=== PATIENT | male | born 1950 | race Caucasian/White ===

== ENCOUNTER 2019-03-25 10:21 | Inpatient (IN) | payer MEDICARE, SELFPAY ==
[2016-12-27 14:29] VITALS: BMI 39.8
[2019-03-25] VITALS (29 sets, daily range): BP systolic 137–168; BP diastolic 66–109; PULSE 60–78; RESP 16–31; TEMP 36.3–36.8; O2SAT 93–98; BMI 40.8; BMI 40.6; BMI 39.5
--- NOTE | 2019-03-25 10:25 | CM.ED ---
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 MET WITH PATIENT'S . ESCORTED ALONG WITH NURSE QUILT STUFFER TO SOFTWARE INTEGRATION DEVELOPER WAITING ROOM. EMOTIONAL SUPPORT PROVIDED. CALLING DAUGHTER AT THIS TIME. JULIA KHAN, APARTMENT MANAGER, POLICE [employer].
[2019-03-25] MEDS: Heparin Injection (Vial) 5,000 UNIT/ML VIAL 5000 UNIT IV (10:29)
--- NOTE | 2019-03-25 10:32 | EKG12_ITS ---
Test Reason : CP Blood Pressure : / mmHG Vent. Rate : 065 BPM Atrial Rate : 065 BPM P-R Int : 184 ms QRS Dur : 088 ms QT Int : 400 ms P-R-T Axes : 019 -29 040 degrees QTc Int : 416 ms Sinus rhythm with occasional Premature ventricular complexes Low voltage QRS Borderline ECG When compared with ECG of 25-MAR-2019 12:08, MANUAL COMPARISON REQUIRED, DATA IS UNCONFIRMED Old AWMI Confirmed by RUI AVILES ([id number]), advertising editor IVA VENCES ([id number]) on 04/07/2019 2:04:28 PM Referred By: Alexa Addison Confirmed By:RUI AVILES
--- NOTE | 2019-03-25 10:40 | ED.DCSUM_ITS ---
- ER Visit Summary Date of Service: 03/25/19 Chief Complaint: Chest pain History of Present Illness: The patient is a 68 M who presents with chest pain that began today. Patient states the pain began approximately 10 minutes prior to arrival. Patient states she was cutting wood when the pain began. Patient describes the pain as a tightness and pressure. Patient states the pain was diffuse across his chest. Patient states he did have some diaphoresis. Patient denies any shortness of breath. Patient denies any nausea or vomiting. Patient does have a history of coronary artery disease with a cardiac stent placed approximately 2 years ago. Physical Examination: Vital signs are stable. Patient is afebrile. Patient is in no acute distress. Oral mucosa is pink and moist. Neck is supple. Trachea is midline. There is no JVD. Heart was regular rate and rhythm. Lungs are clear and equal bilaterally. Abdomen is soft. Bowel sounds are normal. There is no tenderness. Femoral and pedal pulses are equal bilaterally. Cranial nerves II through XII are intact. There are no focal motor or sensory deficits noted. Test Results: EKG showed normal sinus rhythm with a rate of 75. There is ST elevation in leads V2 through V6, I, and aVL. There is ST depression in leads II, III, and aVF. Emergency Department Course and Treatment: Code STEMI was called. Dr. Addison came to the emergency department to evaluate the patient and will take the patient to the [employer] [facility]. Patient was given heparin bolus of 5000 units prior to transfer. Patient is on aspirin and Plavix and took that prior to arrival. Disposition: Admit to hospital Impression: Acute STEMI This note was generated with Topio dictation software. It may contain incorrect words, spelling, and punctuation that were not noted in review of the chart prior to signing ED Disposition - Plan for ED Patient: Disposition: Acute Care Hospital [facility] Diagnosis: STEMI (ST elevation myocardial infarction) Referrals: Care Physician,No Primary [Primary Care Provider] -
[2019-03-25 11:05] LABS: Absolute Lymphocyte Count 1.62 X10^3/uL (0.83-4.51); Absolute Neutrophil Count 5.5 X10^3/uL (2.0-7.7); Basophil# 0.05 X10^3/uL; Basophil% 0.6 % (0-1); Eosinophil# 0.26 X10^3/uL; Eosinophils% 3.1 % (0-5); Hematocrit 54.4 % (40-54); Hemoglobin 18.3 g/dL (13.0-16.5); Lymphocyte # 1.62 X10^3/ul (4.0); Lymphocyte % 19.6 % (19-41); Mean Corp Hgb Conc 33.6 g/dL (32-36); Mean Corpuscular Hgb 28.7 pg (27.0-32.0); Mean Corpuscular Volume 85.3 fL (80-94); Mean Platelet Vol. 9.9 fl (6.2-12.0); Monocyte# 0.78 X10^3/uL; Monocyte% 9.4 % (0-10); NRBC Flagged by Analyzer 0 % (0-5); Neutrophil # 5.51 X10^3/uL (2.7-7.7); Neutrophil % 66.8 % (47-70); Platelet Count 200 K/mm3 (150-450); RBC Distribution Width CV 14.4 % (11.6-14.6); RBC Distribution Width SD 43.5 fl (35.1-43.9); Red Blood Count 6.38 M/mm3 (4.6-6.2); White Blood Count 8.3 K/mm3 (4.4-11.0)
[2019-03-25 11:10] LABS: Prothrombin Time (Protime)PT. 13.4 SECONDS (11.7-14.9)
[2019-03-25 11:11] LABS: Partial Thromboplast Time 27.5 Seconds (24.1-36.2)
[2019-03-25 11:19] LABS: Anion Gap 12 (5-15); BUN 22 mg/dL (7-18); BUN/Creat Ratio 14.9 RATIO (10-20); Calcium,Total 9.2 mg/dL (8.5-10.1); Chloride 106 mmol/L (98-107); Creatinine, Serum 1.48 mg/dL (0.70-1.30); EST Glomerular Filtration Rate 50 mL/min (>60); Est Glom Filt Rate - Afr Amer 61 mL/min (>60); Estimated Creatinine Clearance 52.43 ml/min; Glucose 122 mg/dL (74-106); Potassium 3.2 mmol/L (3.5-5.1); Sodium Level 144 mmol/L (136-145)
--- NOTE | 2019-03-25 11:45 | EKG12_ITS ---
Test Reason : CP Blood Pressure : / mmHG Vent. Rate : 075 BPM Atrial Rate : 075 BPM P-R Int : 182 ms QRS Dur : 094 ms QT Int : 388 ms P-R-T Axes : 020 -24 -01 degrees QTc Int : 433 ms Sinus rhythm with Premature atrial complexes Cannot rule out Inferior infarct , age undetermined Anterior infarct (cited on or before 27-DEC-2016) Lateral injury pattern ACUTE OK / STEMI Abnormal ECG When compared with ECG of 27-DEC-2016 13:09, Premature atrial complexes are now Present Minimal criteria for Inferior infarct are now Present ST now depressed in Inferior leads ST elevation now present in Anterolateral leads Confirmed by RUI AVILES ([id number]), legal editor IVA VENCES ([id number]) on 04/07/2019 2:03:09 PM Referred By: Alexa Addison Confirmed By:RUI AVILES
[2019-03-25] MEDS: 0.9% Normal Saline 1,000 ML 50 ML IV (12:00)
--- NOTE | 2019-03-25 13:53 | PCM.HP.STD ---
Problem List (1) STEMI (ST elevation myocardial infarction) Status: Acute (2) Secondary pulmonary arterial hypertension Status: Chronic (3) Ischemic cardiomyopathy Status: Chronic (4) Presence of stent in coronary artery Status: Chronic Comment: [id number] LAD w/ 3.0 x 20 mm Promus Synergy Stent and JANNETTE-Mid LAD w/ 2.5 x 32 mm Promus Synergy Stent w/ POBA - Prox-Mid D2 12/27/2016 (5) Atherosclerotic heart disease of [place] coronary artery without angina pectoris Status: Chronic Qualifiers: Comment: [id number] LAD w/ 3.0 x 20 mm Promus Synergy Stent and JANNETTE-Mid LAD w/ 2.5 x 32 mm Promus Synergy Stent w/ POBA - Prox-Mid D2 12/27/2016 (6) Hyperlipidemia Status: Chronic Qualifiers: (7) Hypertension Status: Chronic Qualifiers: History of Present Illness Date of Admission: 03/25/19 Chief Complaint: Chest pain. The patient is a 68 year old M with past medical history as mentioned above presented to the emergency room because of chest pain. Symptoms started today when he was working cutting wood with a chainsaw started having chest pain, left-sided, dull aching pain, 5 out of 10 in severity, not radiating, associated with weakness and fatigue and without aggravating or relieving factors. At that time, he was sweating but he attributed that to being working. He denied associated shortness of breath, dizziness, syncope or presyncope. Upon arrival to ED, his blood pressure was slightly elevated, other vital signs were stable. Routine blood work was remarkable for hemoglobin of 18.3 g/dL indicating hemoconcentration, potassium of 3.2 and creatinine of 1.48. EKG revealed normal sinus rhythm with PACs, ST elevation in leads aVL, V2, V3, V4, V5 and V6 and T wave inversion with minimal ST segment depression in leads III and aVF. His troponin was negative. Patient was taken for emergent cardiac catheterization, found to have LAD stent thrombosis with 100% occlusion treated with drug-eluting stent to LAD. At this time, he mentioned the chest pain is getting better. He is being admitted for acute ST elevation DE secondary to LAD stent thrombosis, status post JANNETTE to LAD and also found to have acute kidney injury and hypokalemia. Past Medical History Past Medical History (Chronic Problems): Chronic Problems (Last Reviewed 03/14/18 @ 09:16 by Isabel Chapman) Secondary pulmonary arterial hypertension (Chronic) Ischemic cardiomyopathy (Chronic) Presence of stent in coronary artery (Chronic 12/27/16) [id number] LAD w/ 3.0 x 20 mm Promus Synergy Stent and JANNETTE-Mid LAD w/ 2.5 x 32 mm Promus Synergy Stent w/ POBA - Prox-Mid D2 12/27/2016 Atherosclerotic heart disease of [place] coronary artery without angina pectoris (Chronic) [id number]-[id number]-Ygpo LAD w/ 3.0 x 20 mm Promus Synergy Stent and JANNETTE-Mid LAD w/ 2.5 x 32 mm Promus Synergy Stent w/ POBA - Prox-Mid D2 12/27/2016 NSTEMI (non-ST elevated myocardial infarction) (Chronic) Hyperlipidemia (Chronic) Hypertension (Chronic) Medical History: Medical History (Last Reviewed 03/14/18 @ 09:16 by Isabel Chapman) Secondary pulmonary arterial hypertension (Chronic) I27.21 Ischemic cardiomyopathy (Chronic) I25.5 Atherosclerotic heart disease of [place] coronary artery without angina pectoris (Chronic) I25.10 JND-FZE-Ndss LAD w/ 3.0 x 20 mm Promus Synergy Stent and JANNETTE-Mid LAD w/ 2.5 x 32 mm Promus Synergy Stent w/ POBA - Prox-Mid D2 12/27/2016 NSTEMI (non-ST elevated myocardial infarction) (Chronic) I21.4 Hyperlipidemia (Chronic) E78.5 Hypertension (Chronic) I10 BPH (benign prostatic hyperplasia) N40.0 DVT (deep venous thrombosis) I82.409 GERD (gastroesophageal reflux disease) K21.9 History of TIAs (Inactive) Allergies No Known Allergies Allergy (Verified 03/14/18 09:16) Home Medications: Ambulatory Orders Medication Instructions Recorded Metoprolol Succinate [Toprol Xl] 100 mg PO DAILY 12/26/16 Pantoprazole Sodium [Protonix] 40 mg PO DAILY 12/26/16 Pravastatin [Pravachol] 40 mg PO QHS 12/26/16 Aspirin E.C. [Ecotrin] 81 mg PO DAILY@0800 tab 12/28/16 Finasteride [Proscar] 5 mg PO DAILY #30 tab 12/28/16 Selenium Sulfide 2.5 % TP DAILY #120 ml 12/28/16 Tamsulosin HCl [Flomax] 0.8 mg PO DAILY #60 cap.er.24h 12/28/16 sildenafil 25 mg tablet 25 mg PO ONCE PRN #14 tab 03/14/18 clopidogrel 75 mg tablet 75 mg PO DAILY #90 tab 03/18/18 clonidine HCl 0.1 mg tablet 0.1 mg PO BID #60 tab 05/13/18 hydrochlorothiazide 25 mg tablet 25 mg PO QDAY #30 tab 01/27/19 amlodipine 10 mg-valsartan 320 mg 1 tab PO DAILY #90 tab 02/17/19 tablet Surgical History: Surgical History (Last Reviewed 03/14/18 @ 09:16 by Isabel Chapman) Presence of stent in coronary artery (Chronic) Onset Date: 12/27/16 Z95.5 OMW-VBY-Lpnf LAD w/ 3.0 x 20 mm Promus Synergy Stent and JANNETTE-Mid LAD w/ 2.5 x 32 mm Promus Synergy Stent w/ POBA - Prox-Mid D2 12/27/2016 History of coronary artery stent placement Z95.5 AWW-UJK-Chqi LAD w/ 3.0 x 20 mm Promus Synergy Stent and JANNETTE-Mid LAD w/ 2.5 x 32 mm Promus Synergy Stent w/ POBA - Prox-Mid D2 12/27/2016 Surgical History: total knee arthroplasty - left knee scrapped., - - Cardiac stents. Psychiatric History: No pertinent psych hx Lives: Spouse/ Significant Other Smoking Status: Never smoker Alcohol: None Drugs: None - *Family History Maternal History Items: No pertinent history Paternal History Items: No pertinent history Review of Systems Constitutional: Reports: Weakness, Fatigue. Denies: Anorexia, Chills, Fever Eyes: Denies: Blurred vision, Double vision, Drainage, Redness HEENT: Denies: Difficulty Hearing, Ear Pain, Eye Pain, Nasal Congestion, Sore Throat Cardiovascular: Reports: Chest Pain. Denies: Edema, Heaviness, Light Headedness, Orthopnea, Palpitations, Paroxysmal Noc. Dyspnea, Syncope Respiratory: Denies: Cough, Hemoptysis, Pleuritic Pain, Shortness of Breath, Sputum production, Wheezing Gastrointestinal: Denies: Abdominal Pain, Constipation, Diarrhea, Nausea, Vomiting Genitourinary: Denies: Dysuria, Frequency, Hematuria Musculoskeletal: Denies: Arm Pain, Back Pain, Foot Pain Skin: Denies: Dryness, Rash Neurological: Denies: Balance problems, Blurred vision, Change in Speech, Slurred speech, Confusion, Headaches, Incoordination, Numbness Psychiatric: Denies: Anxiety, Depression Endocrine: Denies: Change in Body Habitus, Polydipsia, Polyuria VTE Information - Inpt Only VTE Present on Admission: No VTE Mechan Device Prophylaxis: SCD's VTE Pharm Prophylaxis ordered?: Yes Patient Problems: Active and Suspected Problems (Last Reviewed 03/14/18 @ 09:16 by Isabel Chapman) STEMI (ST elevation myocardial infarction) (Acute) - Physical Exam General: Alert, Oriented x3, Cooperative, No apparent distress HEENT: Atraumatic, PERRLA, EOMI, Normocephalic Oral: Moist Mucosa, No Gingival or Mucosal Lesions/ Ulcerations Neck: Supple, No JVD, Negative Carotid Bruits, Trachea Midline, Thyroid Normal Size and Texture Lungs: Clear to auscultation, Normal air movement, No rhonchi, No wheeze, No rales, Diminished Cardiovascular: Regular rate, Regular Rhythm, Normal S1, Normal S2, No murmurs, PMI Normal Abdomen: Bowel Sounds Present, Soft, Non Tender, Non-Distended, No Hepato-splenomegaly, Obese Extremities: No clubbing, No cyanosis, No edema Skin: No rashes, No breakdown Lymphatic: No Cervical, Supraclavicular, or Inguinal Adenopathy Neurological: Cranial nerves II-XII grossly intact, Motor Exam 5/5 strength throughout Psych/Mental Status: Normal Affect, Appropriate, Alert and oriented to time, place, person, mood and affect Vital Signs Temp Pulse Resp BP Pulse Ox 97.3 F L 67 20 H 155/96 H 95 03/25/19 12:15 03/25/19 13:45 03/25/19 13:45 03/25/19 13:45 03/25/19 13:45 Oxygen Delivery Method Room Air Weight: 300 lb 14.896 oz Body Mass Index (BMI) 40.8 Laboratory Tests Past 24 Hrs 03/25/19 03/25/19 03/25/19 10:30 10:30 10:30 WBC 8.3 RBC 6.38 H Hgb 18.3 H* Hct 54.4 H MCV 85.3 MCH 28.7 MCHC 33.6 RDW Std Deviation 43.5 RDW Coeff of [place] 14.4 Plt Count 200 MPV 9.9 Immature Gran % (Auto) 0.500 Neut % (Auto) 66.8 Lymph % (Auto) 19.6 [place] % (Auto) 9.4 Eos % (Auto) 3.1 Baso % (Auto) 0.6 Absolute Neuts (auto) 5.5 Absolute Lymphs (auto) 1.62 Nucleated RBC % 0 Diff Path Review December foll PT 13.4 INR 1.0 APTT 27.5 Sodium 144 Potassium 3.2 L Chloride 106 Carbon Dioxide 26.0 Anion Gap 12 BUN 22 H Creatinine 1.48 H Estim Creat Clear Calc 52.43 Est GFR (MDRD) Af Amer 61 Est GFR (MDRD) Non-Af 50 L BUN/Creatinine Ratio 14.9 Glucose 122 H Calcium 9.2 Troponin I < 0.015 Assessment/Plan All Active Problems (Last Reviewed 03/14/18 @ 09:16 by Isabel Chapman) STEMI (ST elevation myocardial infarction) (Acute) This is a 68 years old male patient presented to the emergency department because of chest pain, found to have ST elevation and ST depression on EKG as mentioned above consistent with acute ST elevation DE underwent emergent cardiac catheterization #[address] elevation DE: Secondary to LAD stent thrombosis. EKG reviewed as above. Troponin is negative. Status post emergent cardiac catheterization, found to have LAD stent thrombosis, status post placement of LAD stent. Patient had a history of non-ST elevation DE on Dec, 2016 status post 2 drug eluting stents to LAD. Plan: Admit to ICU, cardiac monitoring, start aspirin, Brilinta, statins, losartan and metoprolol, repeat CBC and BMP tomorrow morning, gentle IV fluids for hydration, cardiology already consulted. #2 acute kidney injury/hypokalemia: Probably prerenal secondary to poor oral intake, hemoglobin is 18.3, BUN is 22, creatinine is 1.48. Potassium is 3.2. Plan: Gentle IV fluids for hydration, encourage oral intake, replace potassium with K. Dur 60 mEq p.o. x1, repeat BMP tomorrow morning. #3 CAD status post stents/ischemic cardiomyopathy: Status post 2 stents to LAD 2 years ago. Plan as above, continue aspirin, statins, beta-blockers, Brilinta and losartan. #4 hypertension: Blood pressure is stable, continue losartan and metoprolol. #5 hyperlipidemia: Continue statins, will check fasting lipid profile. #6 benign prostatic hypertrophy: Continue Flomax and Proscar. #7 DVT prophylaxis: SCDs. This note was generated with Mbaobao dictation software. It may contain incorrect words, spelling, and punctuation that were not noted in checking the note before signing. Code Visit Inpatient E&M: 48527 Init Hosp L3
--- NOTE | 2019-03-25 13:56 | CRPHASE1 ---
Patient Communication Former Patient:: Phase II PHII Cardiac Rehab Discussed with Patient:: Yes Guide to Cardiac Rehab Given to Patient:: Yes Cardiac Rehab Facility Choice List Given to Patient:: Yes - [facility] Choice Program [facility] CR PHII:: Communication Given to CR, Refer to [facility] Choice Program Other:: Communication Given to CR, With permission faxed order and referral information Public Service Representative:: Michele Crouch Refer Phase II Cardiac Rehab:: Yes Risk Factors/Lifestyle Smoking Status: Never smoker Hx Hypertension: Yes Hx Diabetes Mellitus Type 1: No Hx Diabetes Mellitus Type 2: No Hx Metabolic Disorders: Yes Hx Dyslipidemia: Yes Hx Obesity: Yes Height: 6 ft Weight:: 300 lb BMI: 40.6 Past Cardiac Illness: Previous PCI w/Stent Phase I Education Given On:: [place], Nutrition, Antiplatelet medication, CHF, Smoking cessation, Diabetes - Type I, Diabetes - Type II Issues Affecting Care:: None Knowledge of Condition:: Yes Medical/Surgical History [place]:: Yes Angina:: Yes CAD:: Yes Valve Disease/Replacement:: No Pulmonary:: No COPD:: No Asthma:: No Diabetes:: No Hypertension:: Yes Dyslipidemia:: Yes Arrhythmias:: No DVT:: No PVD:: No Arthritis:: Yes - KNEES GERD:: Yes Cancer:: No Renal:: No Thyroid:: No Depression:: No Anxiety:: No CABG: No PTCA:: Yes ICD:: No Pacemaker:: No Discharge/Home/Social Eval Discharge Disposition: Home - PT IS A PREVIOUS CR PATIENT 2017 Marital Status: Cardiac Rehabilitation Info Cardiac Rehabilitation Program Information: Cardiac Rehabilitation is important for patients like you who are recovering from a heart problem. Cardiac rehabilitation programs are recognized as integral to the continued care of the patient with coronary heart disease. The cardiac rehabilitation program is designed to optimize a patient's physical, psychological, and social functioning. Health day care home mother work in cardiac rehabilitation programs and assist you with getting the treatments you need to get stronger and healthier - like exercise, healthy eating habits, and medications. Cardiac rehabilitation has been show to help people with heart problems live longer and have better life enjoyment than people who do not go to cardiac rehabilitation. Please contact the Cardiac Rehabilitation Program at [facility] at in two weeks if you have not heard from them.
--- NOTE | 2019-03-25 14:02 | CRPH1.INSTRU ---
General Education CAD and cardiac anatomy and function:: Not instructed Explanation of diagnoses and procedures:: Needs reinforcement Sign/Symptoms of OR:: Patient communicates acknowledgment, Needs reinforcement Antiplatelet therapy: Not instructed Proper use of NTG-SL: Not instructed Emergency procedures and activation of EMS: Not instructed Compliance of all prescribed medications: Not instructed Smoking Patient Nicotine/Smoking Risk Factors Are:: Non-smoker Dyslipidemia Dyslipidemia Response Code:: Not instructed - CURRENT LIPID PROFILE NOT AVAILABLE AT THIS TIME Overweight/Obesity Patient Overweight/Obesity Risk Factors Are:: Obesity - > or = 30 Recommendations Include:: Weight loss of 5-10%, Reduced calorie diet, Exercise 5-7 times/week Overweight/Obesity:: Not instructed Hypertension Recommendations Include:: Maintain BP <130/85, BP <130/80 if diabetic, DASH dietary guidelines, Decrease/maintain normal body weight, Moderation of ETOH Hypertension:: Not instructed Heart Disease Heart Disease Response Code:: Not instructed Diabetes Patient Diabetes Risk Factors Are:: No documented hx of diabetes Metabolic Syndrome Metabolic Syndrome Response Code:: Not instructed Sedentary Sedentary Response Code:: Not instructed Stress Patient Stress Risk Factors Are:: Patient denies stress as a risk factor Stress Response Code:: Not instructed
--- NOTE | 2019-03-25 15:52 | PCM.CONS.C ---
Problem List (1) STEMI (ST elevation myocardial infarction) Status: Acute Reason for Consult Date of Consultation: 03/25/19 History of Present Illness: The patient is a 68 year old M with past medical history as mentioned below presented to the emergency room because of chest pain. Symptoms started today when he was working cutting wood with a chainsaw started having chest pain, left-sided, dull aching pain, 5 out of 10 in severity, not radiating, associated with weakness and fatigue and without aggravating or relieving factors. At that time, he was sweating but he attributed that to being working. He denied associated shortness of breath, dizziness, syncope or presyncope. Upon arrival to ED, his blood pressure was slightly elevated, other vital signs were stable. Routine blood work was remarkable for hemoglobin of 18.3 g/dL indicating hemoconcentration, potassium of 3.2 and creatinine of 1.48. EKG revealed anterior ST elevation MD. His troponin was negative. Patient was taken for emergent cardiac catheterization, found to have LAD stent thrombosis with 100% occlusion treated with thrombectomy and drug-eluting stent to LAD. At this time, he mentioned the chest pain is getting better. He is being admitted for acute ST elevation MD secondary to LAD stent thrombosis, status post JANNETTE to LAD and also found to have acute kidney injury and hypokalemia. Review of systems: All systems reviewed all else is negative except that in the HPI ] Past Medical History Allergies/Adverse Reactions: Allergies No Known Allergies Allergy (Verified 03/14/18 09:16) Home Medications: Ambulatory Orders Medication Instructions Recorded Metoprolol Succinate [Toprol Xl] 100 mg PO DAILY 12/26/16 Pantoprazole Sodium [Protonix] 40 mg PO DAILY 12/26/16 Pravastatin [Pravachol] 40 mg PO QHS 12/26/16 Aspirin E.C. [Ecotrin] 81 mg PO DAILY@0800 tab 12/28/16 Finasteride [Proscar] 5 mg PO DAILY #30 tab 12/28/16 Selenium Sulfide 2.5 % TP DAILY #120 ml 12/28/16 Tamsulosin HCl [Flomax] 0.8 mg PO DAILY #60 cap.er.24h 12/28/16 sildenafil 25 mg tablet 25 mg PO ONCE PRN #14 tab 03/14/18 clopidogrel 75 mg tablet 75 mg PO DAILY #90 tab 07/23/18 clonidine HCl 0.1 mg tablet 0.1 mg PO BID #60 tab 05/13/18 hydrochlorothiazide 25 mg tablet 25 mg PO QDAY #30 tab 01/27/19 amlodipine 10 mg-valsartan 320 mg 1 tab PO DAILY #90 tab 02/17/19 tablet Past Medical History (Chronic Problems): Chronic Problems (Last Reviewed 03/14/18 @ 09:16 by Isabel Chapman) Secondary pulmonary arterial hypertension (Chronic) Ischemic cardiomyopathy (Chronic) Presence of stent in coronary artery (Chronic 12/27/16) [id number] LAD w/ 3.0 x 20 mm Promus Synergy Stent and JANNETTE-Mid LAD w/ 2.5 x 32 mm Promus Synergy Stent w/ POBA - Prox-Mid D2 12/27/2016 Atherosclerotic heart disease of [place] coronary artery without angina pectoris (Chronic) [id number]-[id number]-Bzbk LAD w/ 3.0 x 20 mm Promus Synergy Stent and JANNETTE-Mid LAD w/ 2.5 x 32 mm Promus Synergy Stent w/ POBA - Prox-Mid D2 12/27/2016 NSTEMI (non-ST elevated myocardial infarction) (Chronic) Hyperlipidemia (Chronic) Hypertension (Chronic) Surgical History: total knee arthroplasty - left knee scrapped., - - Cardiac stents. Psychiatric History: No pertinent psych hx - *Family History Maternal History Items: No pertinent history Paternal History Items: No pertinent history Lives: Spouse/ Significant Other Smoking Status: Never smoker Alcohol: None Drugs: None Objective: Vital Signs Temp Pulse Resp BP Pulse Ox 97.3 F L 66 18 151/88 H 96 03/25/19 12:15 03/25/19 15:00 03/25/19 15:00 03/25/19 15:00 03/25/19 15:00 Oxygen Delivery Method Room Air Weight: 300 lb Body Mass Index (BMI) 40.8 General: Awake, Alert, Oriented x 3 HEENT: PERRL, EOMI, Sclera Non Icteric Neck: Supple, Good ROM, No Lymph Node Enlargement Lungs: Clear to auscultation Cardiovascular: Regular Rhythm, Normal S1, Normal S2, No Murmurs, No Rubs, No Gallops Extremities: Bilateral Edema +1 Skin: No Rashes Psych/Mental Status: Appropriate 03/25/19 10:30: WBC 8.3, RBC 6.38 H, Hgb 18.3 H*, Hct 54.4 H, MCV 85.3, MCH 28.7, MCHC 33.6, Plt Count 200, MPV 9.9, Immature Gran % (Auto) 0.500, Neut % (Auto) 66.8, Lymph % (Auto) 19.6, [place] % (Auto) 9.4, Eos % (Auto) 3.1, Baso % (Auto) 0.6, Absolute Neuts (auto) 5.5, Nucleated RBC % 0 03/25/19 10:30: PT 13.4, INR 1.0, APTT 27.5 03/25/19 10:30: Sodium 144, Potassium 3.2 L, Chloride 106, Carbon Dioxide 26.0, Anion Gap 12, BUN 22 H, Creatinine 1.48 H, Est GFR (MDRD) Af Amer 61, Est GFR (MDRD) Non-Af 50 L, BUN/Creatinine Ratio 14.9, Glucose 122 H, Calcium 9.2, Troponin I < 0.015 Rhythm: EKG: ECHO: Stress Test: Cardiac Cath: PCI: CT Surgery: Holter monitor: EPS: PPM: CXR: Chest CT Scan: Assessment/Plan 1. Anterior STEMI: This was treated with thrombectomy and drug-eluting stent placement. We will switch from Plavix to Brilinta. Continue aspirin, beta-ro, angiotensin receptor ro. Admit to the CCU for further management of his ST elevation MD. Problem #2 scratch that 2. LV dysfunction: Patient is on guideline directed beta-ro and angiotensin receptor ro. We will do a 2D echo later this admission to see if he has recovery of his LV function.
[2019-03-25] MEDS: 0.9% Normal Saline 1,000 ML 75 ML IV (16:26)
--- NOTE | 2019-03-25 16:58 | CL.I_ITS ---
Patient Name: SHERI VUONG Study Date: 03/25/2019 Performing: Zana Addison MD Ht: 73 inches 185.42 cm : 1950 Wt: 300.4 lbs 136.08 kg Age: 68 Gender: male BSA: 2.56 PROCEDURE(S) PERFORMED [id number]/[id number]/LV [id number], JANNETTE AND/OR PTCA, ARTERY OR GRAFT, SINGLE VESSEL CLINICAL PROFILE AND CO-MORBIDITIES Indications: ACS <= 24 hrs Heart Failure: None Stress/Imaging Stress/Image Study Performed: No CAD Presentations: STEMI. Symptom onset Date/Time: 03/25/19 Time Not Available CONCLUSIONS CAD as described with instent thrombosis of LAD stent with 100% occlusion. EF is 35-40% with regional wall motion abnormalities as described. Successful thrombectomy and JANNETTE to LAD. RECOMMENDATIONS Follow up with primary neonatal icu coordinator LORETTA Villatoro for at least 12 months Routine post interventional care DESCRIPTION OF PROCEDURE The patient arrived to the procedure lab. The risks and benefits of the procedure as well as a full d escription of our services here and lack of surgical backup were fully explained to the patient and/o r their significant other prior to the catheterization. The Timeout was completed, verifying the bárbara ect patient and procedure. The patient's procedural site was prepped and draped in the usual fashion. Local anesthetic was given subcutaneously to right radial region with Lidocaine 2%. Using a modified Seldinger technique, arterial access was obtained via the right radial artery, a 6Fr sheath was inse rted.. Left Coronary Artery selective angiography was performed in multiple views using a 6 Fr. XB 3 .5. Left Ventriculography was performed in MIGUEL projection using a 5 Fr. AR MOD. LV to AO pullback pre ssures were then recorded. Right Coronary Artery selective angiography was then performed in multiple views using a 5 Fr. AR MOD catheter BMW [place] Guide wire was advanced to the LAD. [place] AP inserted Pass # 1 [place] AP Removed E merge 2.5 x 12 Balloon catheter was inserted. Balloon catheter was advanced across lesion in the LAD, mid. PTCA balloon inflated at 10 atms for 20 secs. PTCA balloon inflated at 12 atms for 25 secs. Ang iogram performed post balloon dilatation. Elunir 2.5 x 12 Drug Eluting stent was inserted. Drug Eluti ng stent was advanced across the lesion in the LAD, mid. Angiogram performed pre stent deployment. An giogram performed post stent deployment. Nc Emerge 2.75 x 12 Balloon catheter was inserted. Balloon c atheter was advanced across lesion in the LAD, mid. Angiogram performed post balloon dilatation. Th e arterial sheath was pulled and a TR Band was applied for hemostasis CORONARY ANGIOGRAPHY DOMINANCE: Right Dominant LEFT HEART ASSESSMENT Left Ventricular Ejection Fraction: by LV Gram 35-40 % Elevated Left Ventricular End Diastolic Pressure Anterior and apical Hypokinesis - Severe LEFT MAIN: Mild luminal irregularities LEFT ANTERIOR DESCENDING ARTERY: MID LAD: is occluded CIRCUMFLEX ARTERY: Mild luminal irregularities RIGHT CORONARY ARTERY: Mild luminal irregularities VALVE FINDINGS: No Aortic Valve Stenosis No Mitral Insufficency INTERVENTION INFORMATION LESION SITE: LAD (Mid) Lesion Complexity: High/C, chronic total occlusion: No, lesion at bifurcation: No, thrombus present: Yes, lesion length: 11 mm, culprit lesion: Yes, Previously treated lesion: Yes, Timeframe of previous treatment: >2 years, Previously treated with a stent: Yes Stent Type: with JANNETTE Pre Stenosis: 100 % Pre intervention AVILA flow: 0 Post Stenosis: 0 % Post intervention AVILA flow: 3 Lesion Devices: Cordis 6 Fr XB3.5 100cm Guide Catheter Gar .014 BMW [place] Straight 190cm Medtronic 6 Fr. [place] AP Aspiration Catheter James Sci EMERGE MR 2.50x12 BALLOON Cardinal Elunir JANNETTE RX 2.5x12 James Sci NC EMERGE MR 2.75x12 BALLOON COMPLICATIONS No Complications PROCEDURE MEDICATIONS Oxygen: 2 % FiO2 via nasal cannula Aggrastat 12.5mg / 250ml D5W: 20 ml/hr 03/25/2019 10:52:02 Aggrastat Bolus: 22.6 mcg 03/25/2019 10:52:06 Brilinta 180 mg PO @ 03/25/2019 10:56:49 Heparin given IA 03/25/2019 10:45:51 Heparin 1000 unit(s) IV 03/25/2019 10:46:43 Verapamil 2.5mg, Ntg 100mcgs, 3000 units of Heparin given IA 03/25/2019 10:45:51 IV Bolus: .9 NaCl 1000 ml total 03/25/2019 11:28:19 SUMMARY OF HEMODYNAMIC DATA Time AIR REST ECG 10:38:37 AO 144/85 (112) SA 10:47:48 LV 139/12, 35 11:19:08 LV 142/11, 35 11:19:16 LV 134/7, 24 11:20:32 LVp 137/2, 28 11:20:43 AOp 130/78 (102) 11:20:48 Signed By Zana Addison MD On 03/25/2019 16:57:33 Zana Addison MD
[2019-03-25] MEDS: TICAGRELOR 90 MG TABLET PO (21:21)
[2019-03-25] MEDS: MELATONIN 10 MG TABLET PO (22:36)
[2019-03-26] VITALS (19 sets, daily range): BP systolic 102–157; BP diastolic 50–92; PULSE 56–74; RESP 17–31; TEMP 36.6–37; O2SAT 92–97
[2019-03-26 04:51] LABS: Hemoglobin 16.9 g/dL (13.0-16.5); Mean Corp Hgb Conc 33.8 g/dL (32-36); Mean Corpuscular Hgb 29.2 pg (27.0-32.0); Mean Corpuscular Volume 86.4 fL (80-94); Mean Platelet Vol. 10.1 fl (6.2-12.0); Platelet Count 177 K/mm3 (150-450); RBC Distribution Width CV 14.1 % (11.6-14.6); RBC Distribution Width SD 44.3 fl (35.1-43.9); Red Blood Count 5.79 M/mm3 (4.6-6.2); White Blood Count 10.2 K/mm3 (4.4-11.0)
[2019-03-26 05:03] LABS: AST(SGOT) 238 U/L (15-37); Alanine Aminotransfer ALT/SGPT 39 U/L (16-61); Albumin, Serum 3.3 g/dL (3.2-5.0); Alkaline Phosphatase 85 U/L (45-117); Anion Gap 6 (5-15); BUN 16 mg/dL (7-18); BUN/Creat Ratio 13.3 RATIO (10-20); Chloride 107 mmol/L (98-107); Cholesterol 142 mg/dL (200); EST Glomerular Filtration Rate 64 mL/min (>60); Est Glom Filt Rate - Afr Amer 77 mL/min (>60); Estimated Creatinine Clearance 66.58 ml/min; Globulin 3.4 g/dL (2.2-4.2); Glucose 118 mg/dL (74-106); High Density Lipoprotein 31 mg/dL; Potassium 3.7 mmol/L (3.5-5.1); Protein, Total 6.7 g/dL (6.4-8.2); Sodium Level 144 mmol/L (136-145); Triglycerides 186 mg/dL; Very Low Density Lipoprotein 37 mg/dL (5-40)
[2019-03-26] MEDS: 0.9% Normal Saline 1,000 ML 75 ML IV (05:51)
--- NOTE | 2019-03-26 10:00 | EKG12_ITS ---
Test Reason : POST STEMI Blood Pressure : / mmHG Vent. Rate : 062 BPM Atrial Rate : 062 BPM P-R Int : 188 ms QRS Dur : 084 ms QT Int : 394 ms P-R-T Axes : 016 -26 014 degrees QTc Int : 399 ms Normal sinus rhythm Low voltage QRS Borderline ECG When compared with ECG of 25-MAR-2019 10:21, MANUAL COMPARISON REQUIRED, DATA IS UNCONFIRMED Old AWMI Confirmed by RUI AVILES ([id number]), index editor IVA VENCES ([id number]) on 04/07/2019 2:03:59 PM Referred By: Alexa Addison Confirmed By:RUI AVILES
--- NOTE | 2019-03-26 10:04 | ECHOCS_ITS ---
Reason For Study: S/P LA Procedure This was a 2D Doppler, Color Flow transthoracic echocardiogram. The study was technically difficult. Contrast injection was performed. Exam performed portable in ICU/CCU. Left Ventricle Normal LV size. Moderate concentric left ventricular hypertrophy. Mild segmental systolic dysfunction (see wall motion). The estimated ejection fraction is 45 %. Diastolic function is indeterminate. Mid-Anterior : Hypokinetic. Mid-anteroseptal : Akinetic. Anterior Avalon : Akinetic. Inferior Avalon : Hypokinetic. Lateral [place]valon : Akinetic. Septal [place]valon : Akinetic. Right Ventricle Normal RV size. Normal systolic function. Atria Normal left atrium. Normal right atrium. No doppler evidence for ASD. Mitral Valve There is no mitral annular calcification. Normal mitral valve. Trivial mitral valve insufficiency. Tricuspid Valve Normal tricuspid valve. Trivial tricuspid valve insufficiency. Unable to estimate RV systolic pressure/pulmonary artery pressure due to technically difficult study. Aortic Valve Trisinus/trileaflet aortic valve. Mild focal aortic valve calcification. Trivial aortic valve insufficiency. Pulmonic Valve The pulmonic valve is not well visualized. Trivial pulmonic valve insufficiency. Great Vessels The aortic root is not well visualized. Pericardium/Pleural Trivial pericardial effusion. There are no echocardiographic indications of cardiac tamponade. Medication Diluted definity 4ml given slow IV push to enhance endocardial definition. MMode/2D Measurements & Calculations LVIDd: 5.1 cm IVSd: 1.5 cm LA dimension: 4.7 cm LVIDs: 2.8 cm LVPWd: 1.6 cm FS: 45.1 % LVAd ap4: 42.8 cm2 SV(MOD-sp4): 74.3 ml SV(sp4-el): 76.4 ml EDV(MOD-sp4): 160.7 ml EDV(sp4-el): 165.0 ml LVAs ap4: 30.7 cm2 ESV(MOD-sp4): 86.4 ml ESV(sp4-el): 88.6 ml EF(MOD-sp4): 46.2 % EF(sp4-el): 46.3 % Time Measurements MV dec time: 0.22 sec Doppler Measurements & Calculations MV E max pradeep: 69.6 cm/sec Lat Peak E' Pradeep: 6.5 cm/sec Med Peak E' Pradeep: 3.9 cm/sec MV A max pradeep: 91.2 cm/sec E/E' lat: 10.8 E/E' med: 17.7 MV E/A: 0.76 MV V2 max: 123.3 cm/sec MV P1/2t max pradeep: 100.2 cm/sec Ao V2 max: 110.2 cm/sec MV max P.1 mmHg MV P1/2t: 84.2 msec Ao max P.9 mmHg MV V2 mean: 57.3 cm/sec MV mean P.6 mmHg MV dec slope: 348.4 cm/sec2 MV V2 VTI: 33.6 cm MVA(P1/2t): 2.6 cm2 LV V1 max: 82.2 cm/sec PA V2 max: 84.7 cm/sec LV V1 max P.7 mmHg Interpretation Summary The study was technically difficult. Contrast injection was performed. Mild segmental systolic dysfunction (see wall motion). The estimated ejection fraction is 45 %. Moderate concentric left ventricular hypertrophy. Trivial mitral valve insufficiency. Trivial tricuspid valve insufficiency. Mild focal aortic valve calcification. Trivial aortic valve insufficiency. Trivial pulmonic valve insufficiency. Trivial pericardial effusion. There are no echocardiographic indications of cardiac tamponade. Unable to estimate RV systolic pressure/pulmonary artery pressure due to technically difficult study. Diastolic function is indeterminate. Ordering Physician: Michele Crouch Referring Physician: Alexa Addison Performed By: Duncan Hernandez RCS
--- NOTE | 2019-03-26 10:05 | PN.CARD_ITS ---
Subjectve: The patient is awake and alert. He denies any ongoing chest discomfort. Objective: Vital Signs Temp Pulse Resp BP Pulse Ox 98.2 F 56 L 22 H 125/75 H 97 03/26/19 04:00 03/26/19 09:00 03/26/19 09:00 03/26/19 09:00 03/26/19 09:00 Oxygen Delivery Method Room Air Weight: 315 lb 11.231 oz Body Mass Index (BMI) 39.5 Intake and Output for Last 24 Hours 03/24/19 03/25/19 03/26/19 23:59 23:59 23:59 Intake Total 1262 / 1262 465 / 465 Output Total 3725 / 3725 925 / 925 Balance -2463 / -2463 -460 / -460 General: Awake, Alert, Oriented x 3, Cooperative, No Acute Distress HEENT: Atraumatic, Normocephalic, PERRL, EOMI, Sclera Non Icteric Oral: Moist Mucosa Neck: Supple, Good ROM, No JVD Lungs: Clear to auscultation Cardiovascular: Regular Rhythm, Normal S1, Normal S2 Vascular: No Carotid Bruits Abdomen: Bowel Sounds Present, Soft, Non Tender Extremities: No Cyanosis, No Clubbing, No edema Neurological: No Focal Motor or Sensory Deficit Psych/Mental Status: Appropriate 03/25/19 10:30: WBC 8.3, RBC 6.38 H, Hgb 18.3 H*, Hct 54.4 H, MCV 85.3, MCH 28.7, MCHC 33.6, Plt Count 200, MPV 9.9, Immature Gran % (Auto) 0.500, Neut % (Auto) 66.8, Lymph % (Auto) 19.6, Evangeline % (Auto) 9.4, Eos % (Auto) 3.1, Baso % (Auto) 0.6, Absolute Neuts (auto) 5.5, Nucleated RBC % 0 03/25/19 10:30: PT 13.4, INR 1.0, APTT 27.5 03/25/19 10:30: Sodium 144, Potassium 3.2 L, Chloride 106, Carbon Dioxide 26.0, Anion Gap 12, BUN 22 H, Creatinine 1.48 H, Est GFR (MDRD) Af Amer 61, Est GFR (MDRD) Non-Af 50 L, BUN/Creatinine Ratio 14.9, Glucose 122 H, Calcium 9.2, Troponin I < 0.015 03/26/19 04:35: WBC 10.2, RBC 5.79, Hgb 16.9 H, Hct 50.0, MCV 86.4, MCH 29.2, MCHC 33.8, Plt Count 177, MPV 10.1 03/26/19 04:35: Sodium 144, Potassium 3.7, Chloride 107, Carbon Dioxide 31.0, Anion Gap 6, BUN 16, Creatinine 1.20, Est GFR (MDRD) Af Amer 77, Est GFR (MDRD) Non-Af 64, BUN/Creatinine Ratio 13.3, Glucose 118 H, Calcium 9.0, Total Bilirubin 0.70, Triglycerides 186, Cholesterol 142, LDL Cholesterol 74, VLDL Cholesterol 37, HDL Cholesterol 31 L Rhythm: Sinus rhythm; brief episodes of nonsustained wide-complex tachycardia (approximately 4-5 beats in duration) EKG: Sinus rhythm; anteroseptal FL of indeterminate age ECHO: Pending Cardiac Cath: Please see official report PCI: Please see official report Medical Necessity - Tobacco Use Smoking Status: Never smoker Assessment/Plan 1. Acute anteroseptal FL status post LAD PCI in-stent restenosis status post repeat LAD PCI The patient appears to be symptomatically improved at this time. He has noted, on cardiac telemetry, brief episodes of nonsustained wide-complex tachycardia. These episodes may be compatible with a reperfusion dysrhythmia. At the present time he will continue to be followed. He will continue medical management with adjustment as deemed appropriate. He will also be recommended for cardiac rehabilitation. He will also be recommended for a transthoracic echocardiogram to further evaluate his left ventricular wall motion and systolic function. This may help guide his ongoing acute and chronic medical evaluation and care. 2. CAD status post LAD PCI-remote status post in-stent restenosis with subsequent repeat LAD PCI At the present time the patient underwent successful LAD thrombectomy and PCI. He is recuperating in the ICU with plans for transfer to the PCU as long as he remains stable. He will continue to be monitored and continue medical therapy. 3. Nonsustained wide-complex tachycardia/nonsustained VT The patient has had episodes as noted above. These episodes may be reperfusion related dysrhythmias. The patient will continue to be monitored and continue medical management with reassessment as needed. 4. Hyperlipidemia The patient will continue risk factor evaluation and care. 5. Hypertension The patient will continue medical management and follow-up. Comment: The patient's case has been previously discussed with Dr. Addison and subsequently with the patient and his spouse. This note was generated using a voice recognition system and there may be incorrect words, spelling or punctuation that were not noted when reviewing the office note prior to saving.
--- NOTE | 2019-03-26 10:30 | CASEMGMT ---
RN CM LICENSED MIDWIFE CM to room to meet with patient for initial transition planning/care coordination assessment. RN RIVER introduced self and role at [facility]. Pt voices understanding and consents to assessment at this time. Pt resting in bed in no distress at this time. @ bedside. Pt is A/O at this time and answers all questions appropriately. Care providers, pharmacy, and demographics verified/updated at this time. PCP: Dr Magnolia Pate @ [facility]. Specialists: Willa--cardiology, Genie--urology Preferred [facility]acy: [facility] Insurance: [employer] [facility] Prescription Benefit: Yes Living Will/HPOA: Pt does not currently have LW/HCPOA. 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 Declines info at this time and declines wanting to talk to SW. LNOK: Living Arrangements: Lives with . Independent. Transportation: Pt states drives self and states no transportation concerns at this time. will drive pt home @ discharge. DME: Denies using any DME and denies needs. HHC/SNF: No history of either. No needs identified. Pt wishes to return home and states has no concerns with going home at time of discharge. CM to follow for discharge planning/needs. Pt voices no further concerns/needs at this time. Advised pt to ask for CM if any further questions/concerns/needs arise. Voices understanding. PLAN: Home with spousal support and discharge plans in place. Had PCI. Plan is to go home on Brilinta. Pt and given Brilinta savings card and instructed on use. Also made aware if [id number] cost for the refills is not affordable, to discuss this with Dr Crouch for other possible options. and pt voice understanding. Sally SINCLAIR RN CM
--- NOTE | 2019-03-26 10:58 | PN_ITS ---
Patient Problems: Active and Suspected Problems (Last Reviewed 03/14/18 @ 09:16 by Isabel Chapman) STEMI (ST elevation myocardial infarction) (Acute) Subjective: Chief complaint: Follow-up after admission for acute ST elevation MD, status post heart cath, found to have LAD stent thrombosis, status post placement of LAD stent. Patient seen and examined. No acute events overnight. Yesterday evening, patient had short episode of right-sided chest pain resolved quickly. This morning, he had an episode of shortness of breath, no pain. EKG done and showed no acute changes. His vital signs are stable. - Physical Exam General: Alert, Oriented x3, Cooperative, No apparent distress HEENT: Atraumatic, PERRLA, EOMI, Normocephalic Oral: Moist Mucosa, No Gingival or Mucosal Lesions/ Ulcerations Neck: Supple, No JVD, Negative Carotid Bruits, Trachea Midline, Thyroid Normal Size and Texture Lungs: Clear to auscultation, Normal air movement, No rhonchi, No wheeze, No rales Cardiovascular: Regular rate, Regular Rhythm, Normal S1, Normal S2, No murmurs Abdomen: Bowel Sounds Present, Soft, Non Tender, Non-Distended, No Hepato-splenomegaly Extremities: No clubbing, No cyanosis, No edema Skin: No rashes, No breakdown Lymphatic: No Cervical, Supraclavicular, or Inguinal Adenopathy Neurological: Cranial nerves II-XII grossly intact, Neuro grossly intact Psych/Mental Status: Normal Affect, Appropriate, Alert and oriented to time, place, person, mood and affect Vital Signs Temp Pulse Resp BP Pulse Ox 98.2 F 56 L 22 H 125/75 H 97 03/26/19 04:00 03/26/19 09:00 03/26/19 09:00 03/26/19 09:00 03/26/19 09:00 Oxygen Delivery Method Room Air Weight: 315 lb 11.231 oz Body Mass Index (BMI) 39.5 Intake and Output for Last 24 Hours 03/24/19 03/25/19 03/26/19 23:59 23:59 23:59 Intake Total 1262 / 1262 465 / 465 Output Total 3725 / 3725 925 / 925 Balance -2463 / -2463 -460 / -460 Laboratory Tests Past 24 Hrs 03/25/19 03/25/19 03/25/19 10:30 10:30 10:30 WBC 8.3 RBC 6.38 H Hgb 18.3 H* Hct 54.4 H MCV 85.3 MCH 28.7 MCHC 33.6 RDW Std Deviation 43.5 RDW Coeff of Shantelle 14.4 Plt Count 200 MPV 9.9 Immature Gran % (Auto) 0.500 Neut % (Auto) 66.8 Lymph % (Auto) 19.6 [place] % (Auto) 9.4 Eos % (Auto) 3.1 Baso % (Auto) 0.6 Absolute Neuts (auto) 5.5 Absolute Lymphs (auto) 1.62 Nucleated RBC % 0 Diff Path Review May foll PT 13.4 INR 1.0 APTT 27.5 Sodium 144 Potassium 3.2 L Chloride 106 Carbon Dioxide 26.0 Anion Gap 12 BUN 22 H Creatinine 1.48 H Estim Creat Clear Calc 52.43 Est GFR (MDRD) Af Amer 61 Est GFR (MDRD) Non-Af 50 L BUN/Creatinine Ratio 14.9 Glucose 122 H Calcium 9.2 Total Bilirubin AST ALT Alkaline Phosphatase Troponin I < 0.015 Total Protein Albumin Globulin Albumin/Globulin Ratio Triglycerides Cholesterol LDL Cholesterol VLDL Cholesterol HDL Cholesterol 03/26/19 03/26/19 04:35 04:35 WBC 10.2 RBC 5.79 Hgb 16.9 H Hct 50.0 MCV 86.4 MCH 29.2 MCHC 33.8 RDW Std Deviation 44.3 H RDW Coeff of Shantelle 14.1 Plt Count 177 MPV 10.1 Immature Gran % (Auto) Neut % (Auto) Lymph % (Auto) [place] % (Auto) Eos % (Auto) Baso % (Auto) Absolute Neuts (auto) Absolute Lymphs (auto) Nucleated RBC % Diff Path Review PT INR APTT Sodium 144 Potassium 3.7 Chloride 107 Carbon Dioxide 31.0 Anion Gap 6 BUN 16 Creatinine 1.20 Estim Creat Clear Calc 66.58 Est GFR (MDRD) Af Amer 77 Est GFR (MDRD) Non-Af 64 BUN/Creatinine Ratio 13.3 Glucose 118 H Calcium 9.0 Total Bilirubin 0.70 AST 238 H ALT 39 Alkaline Phosphatase 85 Troponin I Total Protein 6.7 Albumin 3.3 Globulin 3.4 Albumin/Globulin Ratio 1.0 Triglycerides 186 Cholesterol 142 LDL Cholesterol 74 VLDL Cholesterol 37 HDL Cholesterol 31 L Medical Necessity - Tobacco Use Smoking Status: Never smoker Assessment/Plan All Active Problems (Last Reviewed 03/14/18 @ 09:16 by Isabel Chapman) STEMI (ST elevation myocardial infarction) (Acute) This is a 68 years old male patient presented to the emergency department because of chest pain, found to have ST elevation and ST depression on EKG as mentioned above consistent with acute ST elevation MD underwent emergent cardiac catheterization #[address] elevation MD: Secondary to LAD stent thrombosis, status post JANNETTE to LAD. He is on aspirin, losartan, Pravachol and metoprolol as well as presented. His vital signs are stable. He had a episode of right-sided chest pain yesterday evening, resolved. EKG showed no acute or new changes. Patient had a history of non-ST elevation MD on Dec, 2016 status post 2 drug eluting stents to LAD. Cardiology on the case. Plan: Transfer to PCU. #2 acute kidney injury/hypokalemia: Probably prerenal secondary to poor oral intake, hemoglobin is 18.3, BUN is 22, creatinine is 1.48. Patient has been on IV fluids. Potassium replaced and corrected, it is 3.7 today. Kidney function improved, creatinine is down to 1.20. Plan to DC IV fluids, encourage oral intake. #3 CAD status post stents/ischemic cardiomyopathy: Status post 2 stents to LAD 2 years ago. Plan as above, continue aspirin, statins, beta-blockers, Brilinta and losartan. #4 hypertension: Blood pressure is stable, continue losartan and metoprolol. #5 hyperlipidemia: Continue statins. #6 benign prostatic hypertrophy: Continue Flomax and Proscar. #7 DVT prophylaxis: SCDs. This note was generated with [employer] dictation software. It may contain incorrect words, spelling, and punctuation that were not noted in checking the note before signing. Code Visit Inpatient E&M: 88233 Subs Hosp L2
[2019-03-26] MEDS: TICAGRELOR 90 MG TABLET PO ×2 (10:59→21:45)
[2019-03-26] MEDS: Metoprolol(XL)Succ 100 MG Tablet PO (10:59)
[2019-03-26] MEDS: Aspirin E.C. 81 MG Tablet PO (10:59)
[2019-03-26] MEDS: Finasteride 5 MG Tablet PO (15:04)
[2019-03-26] MEDS: Pantoprazole Sodium 40 MG Tablet PO (15:04)
[2019-03-26] MEDS: Tolterodine Tartrate 4 MG CAP.SA PO (15:04)
[2019-03-26] MEDS: amLODIPine 10 MG Tablet PO (15:04)
[2019-03-26] MEDS: cloNIDine HCl 0.1 MG Tablet PO (15:05)
[2019-03-26] MEDS: Losartan Potassium 100 MG Tablet PO (15:05)
[2019-03-26] MEDS: Tamsulosin HCl 0.4 MG Capsule PO (16:10)
[2019-03-26] MEDS: Pravastatin 40 MG Tablet PO (21:45)
[2019-03-27 02:59] VITALS: PULSE 72
[2019-03-27 03:40] VITALS: BP 110/59; PULSE 65; RESP 18; TEMP 36.9; O2SAT 94
--- NOTE | 2019-03-27 06:46 | NURSING ---
Lab came up to this RN to inform that patient refused blood work this am.
--- NOTE | 2019-03-27 06:50 | PCA ---
03/27/19 0650 Megan RN notified of weight change. Pt transferred from ICU and unsure of calibration of bed.
--- NOTE | 2019-03-27 06:56 | NURSING ---
This RN was notified by [employer] that patients weight was 143 kg in ICU yesterday and 131 kg on PCU this morning.
[2019-03-27 07:25] VITALS: O2SAT 90
[2019-03-27 07:29] VITALS: PULSE 74
[2019-03-27 08:03] VITALS: BP 117/73; PULSE 73; RESP 16; TEMP 36.9; O2SAT 97
[2019-03-27 08:10] VITALS: BP 117/73; PULSE 73
[2019-03-27] MEDS: Tolterodine Tartrate 4 MG CAP.SA PO (08:10)
[2019-03-27] MEDS: Aspirin E.C. 81 MG Tablet PO (08:10)
[2019-03-27] MEDS: Metoprolol(XL)Succ 100 MG Tablet PO (08:10)
[2019-03-27] MEDS: Losartan Potassium 100 MG Tablet PO (08:10)
[2019-03-27] MEDS: amLODIPine 10 MG Tablet PO (08:11)
[2019-03-27] MEDS: cloNIDine HCl 0.1 MG Tablet PO (08:11)
[2019-03-27] MEDS: Pantoprazole Sodium 40 MG Tablet PO (08:12)
[2019-03-27] MEDS: Finasteride 5 MG Tablet PO (08:12)
[2019-03-27] MEDS: TICAGRELOR 90 MG TABLET PO (08:12)
--- NOTE | 2019-03-27 09:30 | PN.CARD_ITS ---
Subjectve: The patient is awake and alert. He denies ongoing chest discomfort, difficulty breathing, or palpitations. He states he did get up and ambulate in his room in his hallway yesterday evening. He does not recall any adverse events. Objective: Vital Signs Temp Pulse Resp BP Pulse Ox 98.5 F 73 16 117/73 97 03/27/19 08:03 03/27/19 08:10 03/27/19 08:03 03/27/19 08:10 03/27/19 08:03 Oxygen Delivery Method Room Air Weight: 289 lb 10.998 oz Body Mass Index (BMI) 39.5 Intake and Output for Last 24 Hours 03/25/19 03/26/19 03/27/19 23:59 23:59 23:59 Intake Total 1262 / 1262 1681 / 1921 240 / 240 Output Total 3725 / 3725 1525 / 1525 Balance -2463 / -2463 156 / 396 240 / 240 General: Awake, Alert, Oriented x 3, Cooperative, No Acute Distress HEENT: Atraumatic, Normocephalic, PERRL, EOMI, Sclera Non Icteric Oral: Moist Mucosa Neck: Supple, Good ROM, No JVD Lungs: Clear to auscultation Cardiovascular: Regular Rhythm, Normal S1, Normal S2 Abdomen: Bowel Sounds Present, Soft, Non Tender Extremities: Trace RLE Edema, Trace LLE Edema Neurological: No Focal Motor or Sensory Deficit Psych/Mental Status: Appropriate Rhythm: Sinus rhythm; one episode of nonsustained irregular wide-complex rhythm (03/26/2019)-with no obvious associated symptoms and no additional dysrhythmias reported since that time EKG: Sinus rhythm; low voltage QRS limb leads; anterior VA of indeterminate age; T wave abnormality compatible with anterolateral myocardial ischemia ECHO: Mild segmental left ventricular systolic dysfunction with an estimated LVEF 45%; moderate concentric LVH; trivial MR/TR; mild focal aortic valve calcification with trivial AI; trivial [place]; trivial pericardial effusion with no echocardiographic indications of cardiac compromise; diastolic should considered indeterminate Medical Necessity - Tobacco Use Smoking Status: Never smoker Assessment/Plan 1. Acute anteroseptal VA status post LAD PCI in-stent restenosis status post repeat LAD PCI The patient appears to be symptomatically improved at this time. He has noted, on cardiac telemetry, brief episodes of nonsustained wide-complex tachycardia. The last one appears to be yesterday. These episodes may be compatible with a reperfusion dysrhythmia. At the present time he will continue to be followed. He will continue medical management with adjustment as deemed appropriate. He will also be recommended for cardiac rehabilitation. His transthoracic echocardiogram is as noted above. He does have left ventricular regional wall motion of normalities. Hopefully this is stunned myocardium and will improve over time. 2. CAD status post LAD PCI-remote status post in-stent restenosis with subsequent repeat LAD PCI At the present time the patient underwent successful LAD thrombectomy and PCI. He will continue to be monitored and continue medical therapy. 3. Nonsustained wide-complex tachycardia/nonsustained VT The patient has had episodes as noted above. These episodes may be reperfusion related dysrhythmias. The patient will continue to be monitored and continue medical management with reassessment as needed. 4. Hyperlipidemia The patient will continue risk factor evaluation and care. 5. Hypertension The patient will continue medical management and follow-up. Overall the patient will continue medical management. His a.m. laboratory studi es are pending. He was asked to continue to ambulate. Depending upon his clinical course as the day progresses consideration will be given as to the need for additional inpatient evaluation care versus continued outpatient evaluation care. This note was generated using a voice recognition system and there may be incorrect words, spelling or punctuation that were not noted when reviewing the office note prior to saving.
[2019-03-27 09:33] LABS: Absolute Lymphocyte Count 0.94 X10^3/uL (0.83-4.51); Absolute Neutrophil Count 6.2 X10^3/uL (2.0-7.7); Basophil# 0.05 X10^3/uL; Basophil% 0.6 % (0-1); Eosinophil# 0.18 X10^3/uL; Eosinophils% 2.3 % (0-5); Hematocrit 51.9 % (40-54); Hemoglobin 17.5 g/dL (13.0-16.5); Lymphocyte # 0.94 X10^3/ul (4.0); Lymphocyte % 11.8 % (19-41); Mean Corp Hgb Conc 33.7 g/dL (32-36); Mean Corpuscular Hgb 29.1 pg (27.0-32.0); Mean Corpuscular Volume 86.4 fL (80-94); Mean Platelet Vol. 9.8 fl (6.2-12.0); Monocyte# 0.58 X10^3/uL; Monocyte% 7.3 % (0-10); NRBC Flagged by Analyzer 0 % (0-5); Neutrophil # 6.19 X10^3/uL (2.7-7.7); Neutrophil % 77.5 % (47-70); Platelet Count 158 K/mm3 (150-450); RBC Distribution Width SD 44.1 fl (35.1-43.9); Red Blood Count 6.01 M/mm3 (4.6-6.2)
[2019-03-27 09:46] LABS: Anion Gap 7 (5-15); BUN 22 mg/dL (7-18); BUN/Creat Ratio 16.7 RATIO (10-20); Calcium,Total 9.1 mg/dL (8.5-10.1); Chloride 108 mmol/L (98-107); Creatinine, Serum 1.32 mg/dL (0.70-1.30); EST Glomerular Filtration Rate 57 mL/min (>60); Est Glom Filt Rate - Afr Amer 69 mL/min (>60); Estimated Creatinine Clearance 60.53 ml/min; Glucose 141 mg/dL (74-106); Potassium 3.4 mmol/L (3.5-5.1); Sodium Level 141 mmol/L (136-145)
--- NOTE | 2019-03-27 10:00 | EKG12_ITS ---
Test Reason : AM EKG Blood Pressure : / mmHG Vent. Rate : 075 BPM Atrial Rate : 075 BPM P-R Int : 182 ms QRS Dur : 086 ms QT Int : 446 ms P-R-T Axes : 023 054 110 degrees QTc Int : 498 ms Normal sinus rhythm Low voltage QRS Cannot rule out Anteroseptal infarct , age undetermined Marked T wave abnormality, consider lateral ischemia Abnormal ECG When compared with ECG of 26-MAR-2019 04:57, MANUAL COMPARISON REQUIRED, DATA IS UNCONFIRMED Confirmed by RUI AVILES ([id number]), map editor ESAU RUBY ([id number]) on 04/02/2019 3:43:53 PM Referred By: Alexa Addison Confirmed By:RUI AVILES
--- NOTE | 2019-03-27 10:56 | PCM.DC ---
- Discharge Diagnoses Current Active Problems: Current Active and Chronic Problems (Last Reviewed 03/14/18 @ 09:16 by Isabel Chapman) STEMI (ST elevation myocardial infarction) (Acute) You will use the following diet at home:: Cardiac Your food should be the consistency of: Regular Your liquids should be the consistency of: Regular/Thin Discharge Activity: Return to Normal Activity Weight Bearing Status: Weight bearing as tolerated Call your doctor if you observe: Shortness of breath, Chest pain Instructions: Symptoms of a Heart Attack, Exercising After a Heart Attack, Getting Started With Cardiac Rehab: Exercise, Taking Your Medications Allergies/Adverse Reactions: Allergies No Known Allergies Allergy (Verified 03/14/18 09:16) Medications to take at Discharge Metoprolol Succinate [Toprol Xl] 100 mg PO DAILY 12/26/16 Pantoprazole Sodium [Protonix] 40 mg PO DAILY 12/26/16 Pravastatin [Pravachol] 40 mg PO QHS 12/26/16 Selenium Sulfide 2.5 % TP DAILY #120 ml 12/28/16 Amlodipine Besylate/Valsartan [Amlodipine-Valsartan 10-320 mg] 1 tab PO DAILY 03/26/19 Aspirin E.C. [Ecotrin] 81 mg PO DAILY@0800 03/26/19 Clonidine HCl 0.1 mg PO DAILY 03/26/19 Finasteride [Proscar] 5 mg PO DAILY 03/26/19 Hydrochlorothiazide [Hctz] 25 mg PO QDAY 03/26/19 Tamsulosin HCl [Flomax] 0.4 mg PO DAILY 03/26/19 Trospium Chloride [Sanctura Xr] 60 mg PO DAILY 03/26/19 Aspirin E.C. [Ecotrin] 81 mg PO DAILY@0800 tab 03/27/19 Ticagrelor [Brilinta] 90 mg PO BID #60 tab 03/27/19 The following prescriptions were given: Ticagrelor [Brilinta] 90 mg PO BID #60 tab Transmission Status: Received by [facility]/pharmacy #[id number] Primary Care Physician: Care Physician,No Primary [NON-STAFF] - Test Results: Test results from this visit will be discussed in further detail at your follow-up appointment, if applicable. Please Follow Up With: Magnolia Pate DO When: within one week Please Follow Up With: Michele Crouch MD When: please call office within one week for an appointment Proposed Discharge Date: 03/27/19
--- NOTE | 2019-03-27 12:46 | DS.PCM_ITS ---
Discharge Date and Diagnosis Date of Admission: 03/25/19 Date of Discharge: 03/27/19 - Primary Discharge Diagnosis Active and Suspected Problems (Last Reviewed 03/14/18 @ 09:16 by Isabel Chapman) STEMI (ST elevation myocardial infarction) (Acute) - Secondary Discharge Diagnosis Chronic Problems (Last Reviewed 03/14/18 @ 09:16 by Isabel Chapman) Secondary pulmonary arterial hypertension (Chronic) Ischemic cardiomyopathy (Chronic) Presence of stent in coronary artery (Chronic 03/25/19) ELB-RWR-Stzk LAD w/ 3.0 x 20 mm Promus Synergy Stent and JANNETTE-Mid LAD w/ 2.5 x 32 mm Promus Synergy Stent w/ POBA - Prox-Mid D2 12/27/2016; PTCA/JANNETTE to LAD with Thrombectomy 03/25/19 Atherosclerotic heart disease of [place] coronary artery without angina pectoris (Chronic) OUN-QSV-Qvhe LAD w/ 3.0 x 20 mm Promus Synergy Stent and JANNETTE-Mid LAD w/ 2.5 x 32 mm Promus Synergy Stent w/ POBA - Prox-Mid D2 12/27/2016 NSTEMI (non-ST elevated myocardial infarction) (Chronic) Hyperlipidemia (Chronic) Hypertension (Chronic) Hospital Course and Treatment Imaging Results: Interpretation Summary The study was technically difficult. Contrast injection was performed. Mild segmental systolic dysfunction (see wall motion). The estimated ejection fraction is 45 %. Moderate concentric left ventricular hypertrophy. Trivial mitral valve insufficiency. Trivial tricuspid valve insufficiency. Mild focal aortic valve calcification. Trivial aortic valve insufficiency. Trivial pulmonic valve insufficiency. Trivial pericardial effusion. There are no echocardiographic indications of cardiac tamponade. Unable to estimate RV systolic pressure/pulmonary artery pressure due to technically difficult study. Diastolic function is indeterminate. cardiology- Dr Crouch Operations: None Procedures: 2-D Echocardiogram, Cardiac catheterization Summary of Care Provided: The patient is a 68 year old M with an extensive past medical history as listed. He was admitted through the ED on 03/08/2019 with a complaint of chest pain. Chest pain was left-sided, dull and aching, rated at 5 out of 10 in severity and nonradiating was associated with weakness and fatigue. He admits to shortness of breath, dizziness or lightheadedness. Troponin was negative and EKG done showed ST elevation in leads aVL, V2, V3, V4, V5 and V6 and T wave inversion in leads III and aVF. He was admitted for ST elevation TX and taken for emergent cardiac catheterization. He was found to have LAD stent thrombosis with 100% occlusion which was treated with drug-eluting stent placement to the LAD. Patient was also managed for WENDY and hypokalemia. WENDY and hypokalemia resolved with hydration. Patient was started on brilinta and plavix was stopped. He remained stable and was discharged home on 03/27/19. he is to follow up with his PCP and cardiology. Patient seen and examined prior to discharge. He had no complaints and felt well. Review of systems was otherwise negative. Labs and vitals reviewed. Home medications reviewed and reconciled. o/e: Vital Signs Height 6 ft 1 in Weight: 289 lb 10.998 oz Weight in Pounds 289.7 lbs BMI 40.6 Pulse Ox 97 Temperature 98.5 F Pulse Rate 73 Respiratory Rate 16 Blood Pressure [BP] 125/75 Blood Pressure 117/73 Blood Pressure Position [BP] Semi-Fowlers Blood Pressure Position Semi-Fowlers [] - Physical Exam General: Alert, Oriented x3, Cooperative, No apparent distress HEENT: Atraumatic, PERRLA, EOMI, Normocephalic Oral: Moist Mucosa, No Gingival or Mucosal Lesions/ Ulcerations Neck: Supple, No JVD, Negative Carotid Bruits Lungs: Clear to auscultation, Normal air movement, No rhonchi, No wheeze, No rales Cardiovascular: Regular rate, Regular Rhythm, Normal S1, Normal S2, No murmurs Abdomen: Bowel Sounds Present, Soft, Non Tender, Non-Distended, No Hepato- splenomegaly Extremities: No clubbing, No cyanosis, No edema Skin: No rashes, No breakdown Lymphatic: No Cervical, Supraclavicular, or Inguinal Adenopathy Neurological: Cranial nerves II-XII grossly intact, Neuro grossly intact Psych/Mental Status: Normal Affect, Appropriate, Alert and oriented to time, place, person, mood and affect Plan is as above. - Physical Exam Vital Signs Temp Pulse Resp BP Pulse Ox 98.5 F 73 16 117/73 97 03/27/19 08:03 03/27/19 08:10 03/27/19 08:03 03/27/19 08:10 03/27/19 08:03 Oxygen Delivery Method Room Air Weight: 289 lb 10.998 oz Body Mass Index (BMI) 39.5 Intake and Output for Last 24 Hours 03/25/19 03/26/19 03/27/19 23:59 23:59 23:59 Intake Total 1262 / 1262 1681 / 1921 240 / 240 Output Total 3725 / 3725 1525 / 1525 Balance -2463 / -2463 156 / 396 240 / 240 Laboratory Tests Past 24 Hrs 03/27/19 03/27/19 09:26 09:26 WBC 8.0 RBC 6.01 Hgb 17.5 H Hct 51.9 MCV 86.4 MCH 29.1 MCHC 33.7 RDW Std Deviation 44.1 H RDW Coeff of Shantelle 14.0 Plt Count 158 MPV 9.8 Immature Gran % (Auto) 0.500 Neut % (Auto) 77.5 H Lymph % (Auto) 11.8 L Trigg % (Auto) 7.3 Eos % (Auto) 2.3 Baso % (Auto) 0.6 Absolute Neuts (auto) 6.2 Absolute Lymphs (auto) 0.94 Nucleated RBC % 0 Sodium 141 Potassium 3.4 L Chloride 108 H Carbon Dioxide 26.0 Anion Gap 7 BUN 22 H Creatinine 1.32 H Estim Creat Clear Calc 60.53 Est GFR (MDRD) Af Amer 69 Est GFR (MDRD) Non-Af 57 L BUN/Creatinine Ratio 16.7 Glucose 141 H Calcium 9.1 Discharge Diet: Low fat/ Low Cholesterol Discharge Activity: Return to Normal Activity Weight Bearing Status: Weight bearing as tolerated Call your doctor if you observe: Shortness of breath, Chest pain Home Medications: Medications to take at Discharge Metoprolol Succinate [Toprol Xl] 100 mg PO DAILY 12/26/16 Pantoprazole Sodium [Protonix] 40 mg PO DAILY 12/26/16 Pravastatin [Pravachol] 40 mg PO QHS 12/26/16 Amlodipine Besylate/Valsartan [Amlodipine-Valsartan 10-320 mg] 1 tab PO DAILY 03/26/19 Aspirin E.C. [Ecotrin] 81 mg PO DAILY@0800 03/26/19 Clonidine HCl 0.1 mg PO DAILY 03/26/19 Finasteride [Proscar] 5 mg PO DAILY 03/26/19 Hydrochlorothiazide [Hctz] 25 mg PO QDAY 03/26/19 Tamsulosin HCl [Flomax] 0.4 mg PO DAILY 03/26/19 Trospium Chloride [Sanctura Xr] 60 mg PO DAILY 03/26/19 Aspirin E.C. [Ecotrin] 81 mg PO DAILY@0800 tab 03/27/19 Selenium Sulfide 2.5 % TP DAILY 03/27/19 Ticagrelor [Brilinta] 90 mg PO BID #60 tab 03/27/19 Following Prescrptions Were Given to Patient: Ticagrelor [Brilinta] 90 mg PO BID #60 tab Transmission Status: Received by [facility]/pharmacy #[id number] Primary Care Physician: Care Physician,No Primary [NON-STAFF] - Please Follow Up With: Magnolia Pate DO When: within one week Please Follow Up With: Michele Crouch MD When: please call office within one week for an appointment Patient Instructions: Symptoms of a Heart Attack, Getting Started With Cardiac Rehab: Exercise, Exercising After a Heart Attack, Taking Your Medications Disposition: Home Minutes spent on discharge:: 35 Patient Condition:: Stable Medical Necessity - Tobacco Use Smoking Status: Never smoker Meaningful Use Info Meaningful Use Diagnoses (Choose all that apply): AMI - AMI Aspirin given w/in 24hrs of arrival?: Yes ASA at discharge?: Yes Statins at discharge?: Yes Robin/ARB at discharge?: Yes Beta [place] at discharge?: Yes Done w/ Acute TX measure.: Yes Documented LVEF (%): 45 Code Visit Inpatient E&M: 42286 Disch Hosp
[2019-03-27 15:24] LABS: Pathologist Review Reviewed
== END 2019-03-27 12:52 | disposition home or self-care (01) | DRG 247 ==
LOC: ED 10:31 → ICU 10:39 → PCU 03-27 07:08 → ICU 03-27 09:38 → PCU 03-27 09:38
PROVIDERS: Internal Medicine Cardiovascular Disease; Admitting Provider Hospitalist; Emergency Provider Emergency Medicine; Referring Provider Specialist; Visit Provider Student in an Organized Health Care Education/Training Program
DX: I21.09 ST elevation (STEMI) myocardial infarction involving other coronary artery of anterior wall (principal); T82.855A Stenosis of coronary artery stent, initial encounter; T82.867A Thrombosis due to cardiac prosthetic devices, implants and grafts, initial encounter; I25.10 Atherosclerotic heart disease of native coronary artery without angina pectoris; N17.9 Acute kidney failure, unspecified; E87.6 Hypokalemia; I27.21 Secondary pulmonary arterial hypertension; I24.9 Acute ischemic heart disease, unspecified; I25.5 Ischemic cardiomyopathy; I10 Essential (primary) hypertension; E78.5 Hyperlipidemia, unspecified; N40.0 Benign prostatic hyperplasia without lower urinary tract symptoms; K21.9 Gastro-esophageal reflux disease without esophagitis; Z79.82 Long term (current) use of aspirin; Z79.02 Long term (current) use of antithrombotics/antiplatelets; I25.2 Old myocardial infarction; Z79.899 Other long term (current) drug therapy; Z86.718 Personal history of other venous thrombosis and embolism; Z95.5 Presence of coronary angioplasty implant and graft; Z96.659 Presence of unspecified artificial knee joint
CPT/HCPCS: 36415; 80048; 80053; 80061; 84484; 85025; 85027; 85610; 85730; 92941; 93005; 93306; 93458; J7030; Q9957; Q9967; A4216; C1725; C1757; C1769; C1874; C1887; C1894; C8929; C9606; J1327

== ENCOUNTER → 2019-04-08 08:40 | Outpatient (CLI) | payer MEDICARE, SELFPAY ==
[2019-03-25 14:01] VITALS: BMI 40.6
[2019-03-25 18:00] VITALS: BMI 39.5
== END ==
PROVIDERS: Referring Provider Internal Medicine Cardiovascular Disease; Visit Provider Internal Medicine Cardiovascular Disease
DX: Z95.5 Presence of coronary angioplasty implant and graft (principal)

== ENCOUNTER 2019-04-25 08:00 | Outpatient (RCR) | payer MEDICARE, SELFPAY ==
[2019-03-25 14:01] VITALS: BMI 40.6
[2019-03-25 18:00] VITALS: BMI 39.5
== END 2019-04-26 23:59 ==
LOC: CR 08:00
PROVIDERS: Referring Provider Internal Medicine Cardiovascular Disease; Visit Provider Internal Medicine Cardiovascular Disease
DX: Z95.5 Presence of coronary angioplasty implant and graft (principal)
CPT/HCPCS: 93798

== ENCOUNTER 2019-05-19 08:04 | Observation (INO) | payer MEDICARE, SELFPAY ==
[2019-03-25 14:01] VITALS: BMI 40.6
[2019-04-16 09:16] VITALS: BMI 39.5
[2019-05-19] VITALS (10 sets, daily range): BP systolic 128–147; BP diastolic 75–111; PULSE 59–77; RESP 16–23; TEMP 36.5–36.8; O2SAT 93–96; BMI 38.3; BMI 37.9; BMI 38.0
--- NOTE | 2019-05-19 08:17 | RAD_ITS ---
STUDY: X-RAY CHEST REASON FOR EXAM: Male, 69 years old. Chest pain. TECHNIQUE: Single AP portable view of the chest. COMPARISON: Comparison is made with prior examination dated December 26, 2016. FINDINGS: EKG electrodes are seen. There is elevation of the right hemidiaphragm with mild increased markings at the right lung base suggestive of atelectasis. There is no demonstrated pleural abnormality. There is moderate cardiac enlargement. Normal mediastinum and yemi. Normal visualized pulmonary arteries. There is atherosclerotic tortuosity of the aortic arch and descending thoracic aorta. Normal visualized thoracic spine. Normal visualized ribs, clavicles, and shoulders. There is no demonstrated abnormality of the visualized soft tissue structures of the upper abdomen. RAD/Chest 1 View (Portable) IMPRESSION: Elevation of the right hemidiaphragm with mild increased markings at the right lung base suggestive of atelectasis. Moderate cardiomegaly. Electronically Signed: Kwasi Knight, at 8:54 EDT , Service support ,
--- NOTE | 2019-05-19 08:17 | EKG12_ITS ---
Test Reason : CP Blood Pressure : / mmHG Vent. Rate : 078 BPM Atrial Rate : 078 BPM P-R Int : 170 ms QRS Dur : 084 ms QT Int : 380 ms P-R-T Axes : 025 016 099 degrees QTc Int : 433 ms Normal sinus rhythm Anteroseptal infarct (cited on or before 26-MAR-2019), age undetermined ST & T wave abnormality, consider lateral ischemia Abnormal ECG Confirmed by JAVIER BARRAZA, KHALIF ([id number]), metropolitan editor IVA VENCES ([id number]) on 05/21/2019 10:41:38 AM Referred By: Akil Conway Confirmed By:KHALIF HERRERA MD
[2019-05-19] MEDS: Aspirin 81 MG TAB.CHEW 324 MG PO (08:22)
[2019-05-19 08:28] LABS: Absolute Lymphocyte Count 1.08 X10^3/uL (0.83-4.51); Absolute Neutrophil Count 4.9 X10^3/uL (2.0-7.7); Basophil# 0.04 X10^3/uL; Basophil% 0.6 % (0-1); Eosinophil# 0.18 X10^3/uL; Eosinophils% 2.7 % (0-5); Hemoglobin 17.6 g/dL (13.0-16.5); Lymphocyte # 1.08 X10^3/ul (4.0); Mean Corp Hgb Conc 34.5 g/dL (32-36); Mean Corpuscular Hgb 29.7 pg (27.0-32.0); Mean Corpuscular Volume 86.1 fL (80-94); Monocyte# 0.48 X10^3/uL; Monocyte% 7.1 % (0-10); NRBC Flagged by Analyzer 0 % (0-5); Neutrophil # 4.92 X10^3/uL (2.7-7.7); Neutrophil % 72.9 % (47-70); Platelet Count 175 K/mm3 (150-450); RBC Distribution Width SD 43.9 fl (35.1-43.9); Red Blood Count 5.92 M/mm3 (4.6-6.2); White Blood Count 6.8 K/mm3 (4.4-11.0)
--- NOTE | 2019-05-19 08:30 | ED.VIS.GEN ---
History of Present Illness Chief Complaint: Chest Pain Informant: Patient Onset: Today Context: Sudden Onset Timing: Intermittent - Tightness Location: Right side with radiation to right upper extremity Current Severity: - - No pain presently Maximum Severity: Moderate Worsened by: Unknown Relieved by: Nothing Associated Symptoms: Radiation otherwise no associated symptoms Narrative: Patient is a 69-year-old male who had a anterior STEMI March 25. He states he had similar symptoms. He states he was driving to rehab when he developed tightness in his chest looking on the right side with radiation to the right upper extremity. There is no radiation to the jaw, neck or back. There was no associated symptoms. He denies leg pain or leg swelling. He states he is presently on Brilinta. He has not taking aspirin. Per cardiology note he should be taking aspirin. He was switched from Plavix to Brilinta. Patient denies any constitutional symptoms. He denies ocular, visual auditory symptoms. He denies black or maroon stool. He denies orthopnea PND. Prior similar symptoms: Yes - Anterior OH secondary to occluded mid LAD Recent Illness/Hospitalization: Yes - March 25 - Past Medical History (1) STEMI (ST elevation myocardial infarction) Status: Acute (2) Hyperlipidemia Status: Chronic (3) Hypertension Status: Chronic (4) Ischemic cardiomyopathy Status: Chronic (5) NSTEMI (non-ST elevated myocardial infarction) Status: Chronic (6) Presence of stent in coronary artery Status: Chronic Comment: AOV-OHM-Ydln LAD w/ 3.0 x 20 mm Promus Synergy Stent and JANNETTE-Mid LAD w/ 2.5 x 32 mm Promus Synergy Stent w/ POBA - Prox-Mid D2 12/27/2016; PTCA/JANNETTE to LAD with Thrombectomy 03/25/19 (7) Secondary pulmonary arterial hypertension Status: Chronic Past Medical History - Allergies and Home Meds Allergies/Adverse Reactions: Allergies No Known Allergies Allergy (Verified 05/19/19 08:07) Primary Care Physician: Care Physician,No Primary [Primary Care Provider] - Prior records reviewed: Yes Surgical History: total knee arthroplasty - left knee scrapped., - - Cardiac stents. Lives: Spouse/ Significant Other Smoking Status: Never smoker Alcohol: Rare Drugs: None - Family History Maternal Family History: Reports: No pertinent history Paternal Family History: Reports: No pertinent history Review of Systems General: Denies: Chills, Fever, Malaise, Sweats Eyes: Denies: Visual changes - bilaterally, Diplopia ENT: Denies: Rhinorrhea, Sore throat Cardiovascular: Reports: Chest pain. Denies: Palpitations, Heart racing, -, - Respiratory: Denies: Dyspnea, Cough, Dyspnea on exertion Gastrointestinal: Denies: Abdominal pain, Nausea, Vomiting, Diarrhea, Melena, Hematochezia Genitourinary: Denies: Dysuria, Hematuria, Frequency Musculoskeletal: Denies: Myalgias, Arthralgias, Neck pain, Back pain, Swelling, Extremity Pain Skin: Denies: Rash, Wounds Neurological: Denies: Headache, Weakness, Numbness Hematologic: Denies: Easy bruising, Easy bleeding Allergy: Denies: Uticaria, Swelling of the mouth Physical Exam Vital Signs/Narrative: Vital Signs Temp Pulse Resp BP Pulse Ox 05/19/19 08:05 98.2 F 76 18 147/111 H 94 Inital Vital Signs reviewed: Yes General: Well nourished, Well developed, No Acute Distress Head: Normocephalic, Atraumatic Eyes: Perrl, EOMI. Negative for: Pale conjunctiva, Scleral icterus ENT: Moist mucous membranes, No rhinorrhea Neck: Supple, Nontender, No lymphadenopathy, No JVD Cardiovascular: Regular rate, Regular rhythm, No murmurs, Normal S1, Normal S2 Respiratory: No distress, CTA bilaterally, Chest nontender Abdomen: Soft, Nontender, Nondistended, Normal bowel sounds Back: Nontender, Normal Inspection Extremities: Nontender, Edema. Negative for: Calf Tenderness Skin: Normal color, No rash, No Trauma. Negative for: Cyanosis, Diaphoresis, Jaundice Neurological: Alert, Oriented x3, Cranial nerves II-XII grossly intact, Normal Strength, Normal Sensation Psychological: Normal affect, Normal Mood Diagnostic/Tx/Re-eval Chest X-Ray - ED: 1 View, Read by ED Physician, Normal, Heart, Mediastinum, Bony Structures, No Acute Disease, Chronic Changes 05/19/19 08:17 Chest 1 View (Portable) [RAD] Stat Laboratory Results 05/19/19 05/19/19 08:10 08:10 WBC 6.8 RBC 5.92 Hgb 17.6 H Hct 51.0 MCV 86.1 MCH 29.7 MCHC 34.5 RDW Std Deviation 43.9 RDW Coeff of Shantelle 14.0 Plt Count 175 MPV 10.0 Immature Gran % (Auto) 0.700 Neut % (Auto) 72.9 H Lymph % (Auto) 16.0 L [place] % (Auto) 7.1 Eos % (Auto) 2.7 Baso % (Auto) 0.6 Absolute Neuts (auto) 4.9 Absolute Lymphs (auto) 1.08 Nucleated RBC % 0 Sodium 145 Potassium 3.4 L Chloride 108 H Carbon Dioxide 29.0 Anion Gap 8 BUN 19 H Creatinine 1.27 Estim Creat Clear Calc 62.04 Est GFR (MDRD) Af Amer 72 Est GFR (MDRD) Non-Af 60 BUN/Creatinine Ratio 15.0 Glucose 108 H Calcium 9.1 Troponin I 0.044 Laboratory results were reviewed. Patient was made aware of his results. - Rhythm Strip Rhythm Strip: Sinus Rhythm Rate: 76 Ectopy: PVC(s) - EKG Initial EKG Interpretation: Sinus Rhythm - Sinus rhythm with a ventricular rate of 78. MT interval 170 ms. QRS duration 84 ms. QT duration 380 ms. [place] is normal. There is evidence of a prior anterior OH. There is no acute ischemic changes noted. The lateral ischemic changes were noted on prior EKG dated March 27, 2019. - Medical Decision Making With history of coronary disease and multiple risk factors and symptoms similar to prior OH EKG, chest x-ray and appropriate blood work was ordered. He was treated with aspirin. He is presently pain-free. Cath report was reviewed. He had occlusion of mid LAD. He had a thrombectomy performed and drug-eluting stent placed. Plavix was discontinued and started on Brilinta. He was instructed to take aspirin, which he has not been. Differential is cardiac versus noncardiac etiology. Once results are available we will discuss case with cardiology. Of note there was minimal irregularity of the left main, circumflex and RCA. Case was discussed with Dr. Akil Conway. Patient history, physical exam, work-up and prior cath report was discussed with Dr. Akil Conway. He will see patient. Requested admission to his service. Patient been assigned to PCU on Dr. Akil Conway service. ED Disposition - Plan for ED Patient: Disposition: Acute Care Hospital [facility] Diagnosis: Angina at rest Referrals: Care Physician,No Primary [Primary Care Provider] -
[2019-05-19 08:40] LABS: Anion Gap 8 (5-15); BUN 19 mg/dL (7-18); Calcium,Total 9.1 mg/dL (8.5-10.1); Chloride 108 mmol/L (98-107); Creatinine, Serum 1.27 mg/dL (0.70-1.30); EST Glomerular Filtration Rate 60 mL/min (>60); Est Glom Filt Rate - Afr Amer 72 mL/min (>60); Estimated Creatinine Clearance 62.04 ml/min; Glucose 108 mg/dL (74-106); Potassium 3.4 mmol/L (3.5-5.1); Sodium Level 145 mmol/L (136-145)
--- NOTE | 2019-05-19 09:10 | NURSING ---
PCU OBS CP, HX CORONARY DISEASE GABE
--- NOTE | 2019-05-19 10:28 | EKG12_ITS ---
Test Reason : CP ADMISSION Blood Pressure : / mmHG Vent. Rate : 062 BPM Atrial Rate : 062 BPM P-R Int : 178 ms QRS Dur : 084 ms QT Int : 426 ms P-R-T Axes : 014 -09 116 degrees QTc Int : 432 ms Normal sinus rhythm Anteroseptal infarct ST & T wave abnormality, consider lateral ischemia Abnormal ECG Confirmed by JAVIER BARRAZA, KHALIF ([id number]), fan mail editor IVA VENCES ([id number]) on 05/21/2019 10:57:15 AM Referred By: Akil Conway Confirmed By:KHALIF HERRERA MD
--- NOTE | 2019-05-19 10:39 | HP.PCM_ITS ---
Problem List (1) Angina at rest Status: Acute (2) STEMI (ST elevation myocardial infarction) Status: Inactive Qualifiers: Involved coronary artery: LAD coronary artery Qualified Code(s): I21.02 - ST elevation (STEMI) myocardial infarction involving left anterior descending coronary artery (3) Secondary pulmonary arterial hypertension Status: Chronic (4) Ischemic cardiomyopathy Status: Chronic Comment: 45% EF on echocardiogram 03/26/2019 (5) Presence of stent in coronary artery Status: Chronic Comment: EFA-DET-Hqah LAD w/ 3.0 x 20 mm Promus Synergy Stent and JANNETTE-Mid LAD w/ 2.5 x 32 mm Promus Synergy Stent w/ POBA - Prox-Mid D2 12/27/2016; PTCA/JANNETTE to LAD with Thrombectomy 03/25/19 (6) Atherosclerotic heart disease of [place] coronary artery without angina pectoris Status: Chronic Qualifiers: [place] vs. transplanted heart: [place] heart Qualified Code(s): I25.10 - Atherosclerotic heart disease of [place] coronary artery without angina pectoris Comment: QVU-VLR-Rsqk LAD w/ 3.0 x 20 mm Promus Synergy Stent and JANNETTE-Mid LAD w/ 2.5 x 32 mm Promus Synergy Stent w/ POBA - Prox-Mid D2 12/27/2016; thrombectomy and drug-eluting stent to mid LAD on 03/25/2019; (7) NSTEMI (non-ST elevated myocardial infarction) Status: Inactive (8) Hyperlipidemia Status: Chronic Qualifiers: Hyperlipidemia type: pure hypercholesterolemia Qualified Code(s): E78.00 - Pure hypercholesterolemia, unspecified; E78.0 - Pure hypercholesterolemia (9) Hypertension Status: Chronic Qualifiers: Hypertension type: essential hypertension Qualified Code(s): I10 - Essential (primary) hypertension (10) Hypokalemia Status: Acute (11) Dehydration Status: Acute History of Present Illness Date of Admission: 05/19/19 Chief Complaint: Chest pain The patient is a 69 year old M with a past medical history of hypertension, hyperlipidemia, osteoarthritis with chronic knee pain, coronary artery disease with history of PCI/JANNETTE to the proximal LAD and mid LAD on 03/25/2019, ischemic cardiomyopathy with a 45% ejection fraction on 03/26/2019, BPH, DVT in the past, TIAs, GERD, obesity and pulmonary HTN who was driving to cardiac rehab today when he had sudden onset of right side chest pain with radiation down the right arm. He denied shortness of breath, diaphoresis, palpitations, nausea/vomiting. He did not take nitroglycerin. When he arrived at cardiac rehab he was sent to the emergency department. All in all the pain lasted approximately 15 minutes and then resolved on its own. Vital signs at presentation to the emergency department were temperature 98.2 ?F, heart rate 76, blood pressure 147/111, respiratory rate 18 and he was 94% saturated on room air. CBC was remarkable for an increased hemoglobin at 17.6. BMP showed a potassium of 3.4, BUN of 19 and creatinine of 1.27. Troponin is indeterminate at 0.044. EKG showed inverted T waves in V1, V2, lead I and lead aVL. This may be due to the evolution of STEMI in February. No CXR was done. He is fairly inactive and exercises only at cardiac rehab. He has occasional SOB and he attributes this to Brilinta because it is the only new drug. He was admitted to a monitored bed on PCU and will have serial CE's. If the CE's are negative will do chemical stress test in the AM. Past Medical History Past Medical History (Chronic Problems): Chronic Problems (Last Reviewed 03/14/18 @ 09:16 by Isabel Chapman) Secondary pulmonary arterial hypertension (Chronic) Ischemic cardiomyopathy (Chronic) 45% EF on echocardiogram 03/26/2019 Presence of stent in coronary artery (Chronic 03/25/19) IFT-WVK-Vdcg LAD w/ 3.0 x 20 mm Promus Synergy Stent and JANNETTE-Mid LAD w/ 2.5 x 32 mm Promus Synergy Stent w/ POBA - Prox-Mid D2 12/27/2016; PTCA/JANNETTE to LAD with Thrombectomy 03/25/19 Atherosclerotic heart disease of [place] coronary artery without angina pectoris (Chronic) QPG-JQA-Oxph LAD w/ 3.0 x 20 mm Promus Synergy Stent and JANNETTE-Mid LAD w/ 2.5 x 32 mm Promus Synergy Stent w/ POBA - Prox-Mid D2 12/27/2016; thrombectomy and drug-eluting stent to mid LAD on 03/25/2019; Hyperlipidemia (Chronic) Hypertension (Chronic) Medical History: Medical History (Last Reviewed 05/19/19 @ 10:53 by Jeannette Bear DO) Secondary pulmonary arterial hypertension (Chronic) I27.21 Ischemic cardiomyopathy (Chronic) I25.5 45% EF on echocardiogram 03/26/2019 Atherosclerotic heart disease of [place] coronary artery without angina pectoris (Chronic) I25.10 IZE-UPA-Btdj LAD w/ 3.0 x 20 mm Promus Synergy Stent and JANNETTE-Mid LAD w/ 2.5 x 32 mm Promus Synergy Stent w/ POBA - Prox-Mid D2 12/27/2016; thrombectomy and drug-eluting stent to mid LAD on 03/25/2019; Hyperlipidemia (Chronic) E78.5 Hypertension (Chronic) I10 BPH (benign prostatic hyperplasia) N40.0 DVT (deep venous thrombosis) I82.409 GERD (gastroesophageal reflux disease) K21.9 History of TIAs (Inactive) NSTEMI (non-ST elevated myocardial infarction) (Inactive) I21.4 Allergies No Known Allergies Allergy (Verified 05/19/19 08:07) Home Medications: Ambulatory Orders Medication Instructions Recorded Metoprolol Succinate [Toprol Xl] 100 mg PO DAILY 12/26/16 Pantoprazole Sodium [Protonix] 40 mg PO DAILY 12/26/16 Pravastatin [Pravachol] 40 mg PO QHS 12/26/16 Amlodipine Besylate/Valsartan 1 tab PO DAILY 03/26/19 [Amlodipine-Valsartan 10-320 mg] Clonidine HCl 0.1 mg PO BID 03/26/19 Finasteride [Proscar] 5 mg PO DAILY 03/26/19 Tamsulosin HCl [Flomax] 0.8 mg PO DAILY 03/26/19 Trospium Chloride [Sanctura Xr] 60 mg PO DAILY 03/26/19 hydrochlorothiazide 25 mg tablet 25 mg PO QDAY #90 tab 05/07/19 Aspirin E.C. [Ecotrin] 81 mg PO DAILY@0800 05/19/19 Ticagrelor [Brilinta] 90 mg PO BID 05/19/19 Surgical History: Surgical History (Last Reviewed 05/19/19 @ 10:54 by Jeannette Bear DO) Presence of stent in coronary artery (Chronic) Onset Date: 03/25/19 Z95.5 WST-CKW-Kkcn LAD w/ 3.0 x 20 mm Promus Synergy Stent and JANNETTE-Mid LAD w/ 2.5 x 32 mm Promus Synergy Stent w/ POBA - Prox-Mid D2 12/27/2016; PTCA/JANNETTE to LAD with Thrombectomy 03/25/19 History of coronary artery stent placement Z95.5 IJP-MHV-Jahw LAD w/ 3.0 x 20 mm Promus Synergy Stent and JANNETTE-Mid LAD w/ 2.5 x 32 mm Promus Synergy Stent w/ POBA - Prox-Mid D2 12/27/2016 Surgical History: total knee arthroplasty - left knee scrapped., - - Cardiac stents. Psychiatric History: No pertinent psych hx Lives: Spouse/ Significant Other Smoking Status: Never smoker Alcohol: Rare Drugs: None - *Family History Maternal History Items: No pertinent history Paternal History Items: No pertinent history Review of Systems Constitutional: Reports: - - Has not been weighing himself daily. Denies: Chills, Fever, Weight Change Eyes: Denies: Blurred vision HEENT: Denies: Head Aches, Sinus Congestion, Sinus Drainage Cardiovascular: Reports: Chest Pain, Edema. Denies: Light Headedness, Or thopnea, Palpitations, Paroxysmal Noc. Dyspnea, Syncope Respiratory: Reports: Shortness of Breath - occasional. Denies: Cough, Shortness of breath at rest, Sputum production Gastrointestinal: Denies: Abdominal Pain, Nausea, Vomiting Genitourinary: Denies: Dysuria Musculoskeletal: Denies: Joint Pain, Joint Tenderness Skin: Denies: Rash, Wounds Neurological: Denies: Numbness, Tingling, Focal weakness Psychiatric: Denies: Anxiety, Depression, Homicidal Ideations, Suicidal Ideations Hematologic/ Lymphatic: Reports: Hx of blood clot. Denies: Easy Bruising, Easy Bleeding VTE Information - Inpt Only VTE Present on Admission: No VTE Mechan Device Prophylaxis: SCD's VTE Pharm Prophylaxis ordered?: Yes Patient Problems: Active and Suspected Problems (Last Reviewed 03/14/18 @ 09:16 by Isabel Chapman) Angina at rest (Acute) Hypokalemia (Acute) Dehydration (Acute) - Physical Exam General: Alert, Oriented x3, Cooperative, No apparent distress, Well developed, Well nourished HEENT: Atraumatic, PERRLA, EOMI, Normocephalic Oral: Dry Mucosa Neck: Supple, No JVD, Negative Carotid Bruits, No Nodes, Trachea Midline Lungs: Clear to auscultation, Normal air movement, No rhonchi, No wheeze, No rales Cardiovascular: Regular rate, Regular Rhythm, Normal S1, Normal S2, No murmurs, No Ectopic Activity, No rub noted, No Gallop Abdomen: Bowel Sounds Present, Soft, Non Tender, Non-Distended, - - No guarding with palpation Extremities: No clubbing, No cyanosis, No edema, Capillary Refill Less than 3 Seconds, Peripheral Pulses Normal Skin: No rashes, No breakdown Musculoskeletal: No Tenderness to Palpation of Joints or Extremities Neurological: Cranial nerves II-XII grossly intact, Neuro grossly intact Psych/Mental Status: Normal Affect, Appropriate Vital Signs Temp Pulse Resp BP Pulse Ox 98.2 F 64 23 H 134/86 H 93 05/19/19 08:05 05/19/19 09:17 05/19/19 09:17 05/19/19 09:17 05/19/19 09:17 Oxygen Delivery Method Room Air Weight: 287 lb 11.252 oz Body Mass Index (BMI) 37.9 Laboratory Tests Past 24 Hrs 05/19/19 05/19/19 08:10 08:10 WBC 6.8 RBC 5.92 Hgb 17.6 H Hct 51.0 MCV 86.1 MCH 29.7 MCHC 34.5 RDW Std Deviation 43.9 RDW Coeff of Shantelle 14.0 Plt Count 175 MPV 10.0 Immature Gran % (Auto) 0.700 Neut % (Auto) 72.9 H Lymph % (Auto) 16.0 L [place] % (Auto) 7.1 Eos % (Auto) 2.7 Baso % (Auto) 0.6 Absolute Neuts (auto) 4.9 Absolute Lymphs (auto) 1.08 Nucleated RBC % 0 Sodium 145 Potassium 3.4 L Chloride 108 H Carbon Dioxide 29.0 Anion Gap 8 BUN 19 H Creatinine 1.27 Estim Creat Clear Calc 62.04 Est GFR (MDRD) Af Amer 72 Est GFR (MDRD) Non-Af 60 BUN/Creatinine Ratio 15.0 Glucose 108 H Calcium 9.1 Troponin I 0.044 Assessment/Plan All Active Problems (Last Reviewed 03/14/18 @ 09:16 by Isabel Chapman) Angina at rest (Acute) Hypokalemia (Acute) Dehydration (Acute) Impressions 1. CP in a pt with hx of CAD and 2 JANNETTE's to the LAD in February 2019 and an abnormal EKG. Admit to a monitored bed on PCU and order cardiac enzymes. If the cardiac enzymes are negative we will proceed with a pharmacologic nuclear stress test in the a.m. as he is unable to walk much secondary to chronic knee pain. Continue home medications. Nitroglycerin sublingual as needed chest pain. 2. Coronary artery disease with history of 2 drug-eluting stents to the proximal and mid LAD on 03/25/2019. Continue home meds. 3. Ischemic cardiomyopathy with a 35-40% EF on left ventriculogram and 45% on the ECHO done 1 day after cardiac cath and intervention. 4. Hypokalemia-supplementation ordered 5. Mild dehydration with increased hemoglobin to 17.8 with a hematocrit of 51. 1 L of D5 half-normal saline at 100 cc/h then discontinue. Recheck lab in the a.m. 6. Pulmonary hypertension 7. Hypertension/hyperlipidemia/GERD/obesity/BPH D/W Dr. Conway who was consulted by Dr. Umaña. The patient usually follows with Dr. Crouch. Code Visit OBS E&M: 95307 Initial observation care L3
[2019-05-19] MEDS: Enoxaparin 40 MG/0.4 ML Syringe SC (11:37)
[2019-05-19] MEDS: Dext 5%-0.45% NS 1,000 ML 100 ML IV (11:38)
--- NOTE | 2019-05-19 18:16 | CON.PCM_ITS ---
Reason for Consult Date of Consultation: 05/19/19 Reason for Consultation: Chest discomfort and right arm discomfort History of Present Illness: The patient is a 69 year old M with a past medical history of hypertension, hyperlipidemia, coronary artery disease status post anterior myocardial infarction in February 2019. He underwent a cardiac catheterization which demonstrated a high-grade LAD stenosis for which she had angioplasty and drug- eluting stent placement to the proximal and mid left anterior descending artery. He was also noted to have mildly reduced ejection fraction of 45%. He was on his way to cardiac rehabilitation today when he experienced right-sided discomfort in his chest and also down his right arm. He denied any shortness of breath paroxysmal nocturnal dyspnea pedal edema palpitations nausea vomiting. He arrived in cardiac rehabilitation mentioned to them and was sent to the emergency room. The pain lasted approximately 15 minutes and then dissipated. He was evaluated in the emergency room with his EKG demonstrating T wave inversions anteriorly and also in lead I and aVL which were better compared to the EKG from February 2019. Serial cardiac enzymes were obtained and were noted to be elevating. Cardiology was called to evaluate the patient and the initial plan which had been to perform a stress test after the call from the ER was switched to a possible cardiac catheterization. He is currently pain-free. [] Past Medical History Allergies/Adverse Reactions: Allergies No Known Allergies Allergy (Verified 05/19/19 08:07) Home Medications: Ambulatory Orders Medication Instructions Recorded Metoprolol Succinate [Toprol Xl] 100 mg PO DAILY 12/26/16 Pantoprazole Sodium [Protonix] 40 mg PO DAILY 12/26/16 Pravastatin [Pravachol] 40 mg PO QHS 12/26/16 Amlodipine Besylate/Valsartan 1 tab PO DAILY 03/26/19 [Amlodipine-Valsartan 10-320 mg] Clonidine HCl 0.1 mg PO BID 03/26/19 Finasteride [Proscar] 5 mg PO DAILY 03/26/19 Tamsulosin HCl [Flomax] 0.8 mg PO DAILY 03/26/19 Trospium Chloride [Sanctura Xr] 60 mg PO DAILY 03/26/19 hydrochlorothiazide 25 mg tablet 25 mg PO QDAY #90 tab 05/07/19 Aspirin E.C. [Ecotrin] 81 mg PO DAILY@0800 05/19/19 Ticagrelor [Brilinta] 90 mg PO BID 05/19/19 Past Medical History (Chronic Problems): Chronic Problems (Last Reviewed 05/19/19 @ 10:53 by Jeannette Bear DO) Secondary pulmonary arterial hypertension (Chronic) Ischemic cardiomyopathy (Chronic) 45% EF on echocardiogram 03/26/2019 Presence of stent in coronary artery (Chronic 03/25/19) HCV-XEI-Toik LAD w/ 3.0 x 20 mm Promus Synergy Stent and JANNETTE-Mid LAD w/ 2.5 x 32 mm Promus Synergy Stent w/ POBA - Prox-Mid D2 12/27/2016; PTCA/JANNETTE to LAD with Thrombectomy 03/25/19 Atherosclerotic heart disease of [place] coronary artery without angina pectoris (Chronic) HGA-VGQ-Hurw LAD w/ 3.0 x 20 mm Promus Synergy Stent and JANNETTE-Mid LAD w/ 2.5 x 32 mm Promus Synergy Stent w/ POBA - Prox-Mid D2 12/27/2016; thrombectomy and drug-eluting stent to mid LAD on 03/25/2019; Hyperlipidemia (Chronic) Hypertension (Chronic) Surgical History: total knee arthroplasty - left knee scrapped., - - Cardiac stents. Psychiatric History: No pertinent psych hx - *Family History Maternal History Items: No pertinent history Paternal History Items: No pertinent history Lives: Spouse/ Significant Other Smoking Status: Never smoker Alcohol: Rare Drugs: None Review of Systems - Review of Systems General: Denies: Fever, Night Sweats, Fatigue HEENT: Denies: Vision Change Cardiovascular: Reports: Chest Discomfort, Chest Discomfort at Rest. Denies: Shortness of Breath, Orthopnea, PND, Peripheral Edema, Palpitations, Lightheadedness, Dizziness, Near Syncope, Syncope Respiratory: Denies: Cough, Sputum Production, Hemoptysis Gastrointestinal: Denies: Hematemesis, Hematochezia, Melena Genitourinary: Denies: Dysuria, Hematuria Skin: Denies: Rash Neurological: Denies: Dizziness Psychiatric: Denies: Anxiety Endocrine: Denies: Heat Intolerance Hematologic/ Lymphatic: Denies: Anemia Subjectve: Pleasant gentleman in no distress pain-free at this time Objective: Vital Signs Temp Pulse Resp BP Pulse Ox 97.7 F L 68 16 128/75 H 94 05/19/19 16:00 05/19/19 16:06 05/19/19 16:00 05/19/19 16:00 05/19/19 16:00 Oxygen Delivery Method Room Air Weight: 287 lb 11.252 oz Body Mass Index (BMI) 37.9 General: Awake, Alert, Oriented x 3 HEENT: PERRL, EOMI, Sclera Non Icteric Neck: Supple, Good ROM, No Lymph Node Enlargement Lungs: Clear to auscultation Cardiovascular: Regular Rhythm, Normal S1, Normal S2, No Murmurs, No Rubs, No Gallops Vascular: No Carotid Bruits, Normal Femoral Pulses, Normal Radial Pulses, Normal Dorsalis Pedal Pulse, Normal Posterior Tibial Pulses Abdomen: Bowel Sounds Present, Soft, Non Tender, No HSM, No Organomegaly Extremities: No Cyanosis, No Clubbing, No edema Musculoskeletal: No Erythema Skin: No Rashes Lymphatic: No Lymph Node Enlargement Neurological: No Focal Motor or Sensory Deficit Psych/Mental Status: Appropriate 05/19/19 08:10: WBC 6.8, RBC 5.92, Hgb 17.6 H, Hct 51.0, MCV 86.1, MCH 29.7, MCHC 34.5, Plt Count 175, MPV 10.0, Immature Gran % (Auto) 0.700, Neut % (Auto) 72.9 H, Lymph % (Auto) 16.0 L, Morris % (Auto) 7.1, Eos % (Auto) 2.7, Baso % (Auto) 0.6, Absolute Neuts (auto) 4.9, Nucleated RBC % 0 05/19/19 08:10: Sodium 145, Potassium 3.4 L, Chloride 108 H, Carbon Dioxide 29.0, Anion Gap 8, BUN 19 H, Creatinine 1.27, Est GFR (MDRD) Af Amer 72, Est GFR (MDRD) Non-Af 60, BUN/Creatinine Ratio 15.0, Glucose 108 H, Calcium 9.1, Troponin I 0.044 05/19/19 11:12: Troponin I 0.163 H 05/19/19 14:11: Troponin I 0.487 H Rhythm: EKG: Normal sinus rhythm with T wave inversions noted anteriorly Assessment/Plan 1. Chest discomfort-NSTEMI * Patient presents with chest discomfort and is noted to have cardiac enzyme elevation suggestive of a non-ST elevation myocardial infarction. He had previously undergone angioplasty and stenting with a 3.0 x 20 mm drug-eluting Promus stent in the proximal LAD, and a 2.5 x 32 mm Promus drug-eluting stent in the mid left anterior descending artery earlier in the summer. * With the above discomfort in the EKG changes I would recommend that we defer stress testing and proceed directly to a cardiac catheterization. The risk benefits alternatives have been explained to him and he understands and agrees to proceed. * He will continue his Brilinta and aspirin * * 2. Ischemic cardiomyopathy * Patient is noted to have ischemic cardia myopathy with an estimated ejection fraction of approximately 45%. He has no heart failure symptoms at this time. * Will recommend continue beta-ro and MICHAEL inhibitor. * 3. Hyperlipidemia * Continue aggressive risk factor modification * 4. Hypertension * Patient's blood pressure appears to be under good control at this particular time and no other changes will be made. * Would consider at some point substituting a different blood pressure medication for the clonidine, but would defer to primary obstetrics nurse practitioner on this. * * Thank you for allowing me to participate in the care of your patient. Please don't hesitate to call if any issues arise
[2019-05-19] MEDS: TICAGRELOR 90 MG TABLET PO (21:20)
[2019-05-20] VITALS (21 sets, daily range): BP systolic 117–147; BP diastolic 63–111; PULSE 56–86; RESP 16–20; TEMP 36.6–36.8; O2SAT 92–97
[2019-05-20 04:53] LABS: Hematocrit 46.9 % (40-54); Hemoglobin 15.7 g/dL (13.0-16.5); Mean Corp Hgb Conc 33.5 g/dL (32-36); Mean Corpuscular Hgb 28.5 pg (27.0-32.0); Mean Corpuscular Volume 85.3 fL (80-94); Mean Platelet Vol. 9.8 fl (6.2-12.0); Platelet Count 148 K/mm3 (150-450); RBC Distribution Width CV 14.2 % (11.6-14.6); RBC Distribution Width SD 43.7 fl (35.1-43.9); White Blood Count 6.7 K/mm3 (4.4-11.0)
[2019-05-20 05:00] LABS: International Normalized Ratio 1.2; Prothrombin Time (Protime)PT. 14.5 SECONDS (11.7-14.9)
[2019-05-20 05:02] LABS: Partial Thromboplast Time 32.4 Seconds (24.1-36.2)
[2019-05-20 05:23] LABS: ALB/GLOB Ratio 0.9 RATIO (0.9-2.4); AST(SGOT) 14 U/L (15-37); Alanine Aminotransfer ALT/SGPT 14 U/L (16-61); Alkaline Phosphatase 84 U/L (45-117); Anion Gap 8 (5-15); BUN 21 mg/dL (7-18); BUN/Creat Ratio 16.8 RATIO (10-20); Calcium,Total 8.4 mg/dL (8.5-10.1); Chloride 108 mmol/L (98-107); Cholesterol 119 mg/dL (200); Creatinine, Serum 1.25 mg/dL (0.70-1.30); EST Glomerular Filtration Rate 61 mL/min (>60); Est Glom Filt Rate - Afr Amer 74 mL/min (>60); Estimated Creatinine Clearance 63.03 ml/min; Globulin 3.4 g/dL (2.2-4.2); Glucose 109 mg/dL (74-106); High Density Lipoprotein 27 mg/dL; Potassium 3.5 mmol/L (3.5-5.1); Protein, Total 6.4 g/dL (6.4-8.2); Sodium Level 143 mmol/L (136-145); Triglycerides 173 mg/dL; Very Low Density Lipoprotein 35 mg/dL (5-40)
--- NOTE | 2019-05-20 05:55 | EKG12_ITS ---
Test Reason : AM EKG Blood Pressure : / mmHG Vent. Rate : 073 BPM Atrial Rate : 073 BPM P-R Int : 182 ms QRS Dur : 090 ms QT Int : 404 ms P-R-T Axes : 030 040 110 degrees QTc Int : 445 ms Normal sinus rhythm Anteroseptal infarct , age undetermined Abnormal ECG When compared with ECG of 19-MAY-2019 10:06, MANUAL COMPARISON REQUIRED, DATA IS UNCONFIRMED Confirmed by LEONARDO BARRAZA, STACY ([id number]), editorial project manager IVA VENCES ([id number]) on 05/23/2019 10:35:15 A M Referred By: Akil Conway Confirmed By:RACHEL PATTERSON MD
[2019-05-20] MEDS: 0.9% Normal Saline 1,000 ML 15 ML IV (05:58)
[2019-05-20] MEDS: amLODIPine 10 MG Tablet PO ×2 (06:02→06:04)
[2019-05-20] MEDS: Metoprolol(XL)Succ 100 MG Tablet PO (06:02)
[2019-05-20] MEDS: Losartan Potassium 100 MG Tablet PO (06:04)
[2019-05-20] MEDS: TICAGRELOR 90 MG TABLET PO ×2 (06:04→22:24)
[2019-05-20] MEDS: Aspirin E.C. 81 MG Tablet PO (06:04)
[2019-05-20] MEDS: cloNIDine HCl 0.1 MG Tablet PO ×2 (06:04→22:24)
--- NOTE | 2019-05-20 08:56 | PCM.PN.CARD ---
Subjectve: The patient is awake and alert. He states he feels better today. Objective: Vital Signs Temp Pulse Resp BP Pulse Ox 98.1 F 79 16 120/63 97 05/20/19 06:04 05/20/19 07:45 05/20/19 06:04 05/20/19 06:04 05/20/19 07:50 Oxygen Delivery Method Room Air Weight: 287 lb 11.252 oz Body Mass Index (BMI) 37.9 Intake and Output for Last 24 Hours 05/18/19 05/19/19 05/20/19 23:59 23:59 23:59 Intake Total 2079 Balance 2079 General: Awake, Alert, Oriented x 3, Cooperative, No Acute Distress HEENT: Atraumatic, Normocephalic, PERRL, EOMI, Sclera Non Icteric Oral: Moist Mucosa Neck: Supple, Good ROM, No JVD Lungs: Clear to auscultation Cardiovascular: Regular Rhythm, Normal S1, Normal S2 Abdomen: Bowel Sounds Present, Soft, Non Tender Extremities: No Cyanosis, No Clubbing, No edema Neurological: No Focal Motor or Sensory Deficit Psych/Mental Status: Appropriate 05/19/19 11:12: Troponin I 0.163 H 05/19/19 14:11: Troponin I 0.487 H 05/20/19 04:46: WBC 6.7, RBC 5.50, Hgb 15.7, Hct 46.9, MCV 85.3, MCH 28.5, MCHC 33.5, Plt Count 148 L, MPV 9.8 05/20/19 04:46: Sodium 143, Potassium 3.5, Chloride 108 H, Carbon Dioxide 27.0, Anion Gap 8, BUN 21 H, Creatinine 1.25, Est GFR (MDRD) Af Amer 74, Est GFR (MDRD) Non-Af 61, BUN/Creatinine Ratio 16.8, Glucose 109 H, Calcium 8.4 L, Total Bilirubin 0.50, Triglycerides 173, Cholesterol 119, LDL Cholesterol 57, VLDL Cholesterol 35, HDL Cholesterol 27 L 05/20/19 04:46: PT 14.5, INR 1.2, APTT 32.4 05/20/19 04:46: Troponin I 0.511 H Rhythm: Sinus rhythm EKG: Sinus rhythm; anteroseptal NJ of indeterminate age; T wave abnormality compatible with myocardial ischemia-anterolateral Medical Necessity - Tobacco Use Smoking Status: Never smoker Assessment/Plan 1. Non-ST segment elevation [place] The patient presents with symptoms and objective findings concerning for a recurrent acute coronary syndrome with recurrent acute non-ST segment elevation NJ. His troponin I levels have trended up. His ECG demonstrates the aforementioned findings. At the present time he is continued medical management. He is being referred for further evaluation with repeat diagnostic cardiac catheterization. The procedure have been discussed with him and he is agreeable to this approach. 2. CAD status post LAD PCI The patient has had previous LAD PCI remote and somewhat recently. He states he has been active at home. He has noted some symptoms with respect to his discomforts as well as exertional fatigue. He is denied orthopnea or PND or peripheral pitting edema as well as near syncope or syncope. He states he has been taking his medications although he believes he may have not taken his 05/17/19 AM Brilinta dose. At the present time there are concerns as noted above. He will continue medical management and further evaluation as described above. 3. Ischemic mediated cardiomyopathy The patient does have, based on his most recent evaluations, concerns of diminished LV systolic function thought secondary to his underlying somewhat recent acute coronary syndrome event requiring LAD repeat PCI. He appears without symptoms of obvious acute CHF or pulmonary edema. He will continue medical management and follow-up. 4. Hyperlipidemia He will continue medical therapy and follow-up. 5. Hypertension His blood pressure will be monitored. Medications to be adjusted as needed. Comment: The above was discussed with the patient and his spouse. This note was generated using a voice recognition system and there may be incorrect words, spelling or punctuation that were not noted when reviewing the office note prior to saving.
--- NOTE | 2019-05-20 09:27 | CASEMGMT ---
According to the [employer] website, the following are in-network tertiary facilities: [facility], [facility], [facility], and . Arash EDUARDO CM
--- NOTE | 2019-05-20 10:33 | NURSING ---
report called to label rewinder. Pt off floor for heart cath at this time
[2019-05-20] MEDS: Tamsulosin HCl 0.4 MG Capsule 0.8 MG PO (13:59)
[2019-05-20] MEDS: hydroCHLOROthiazide 25 MG Tablet PO (13:59)
[2019-05-20] MEDS: Tolterodine Tartrate 4 MG CAP.SA PO (13:59)
[2019-05-20] MEDS: Pantoprazole Sodium 40 MG Tablet PO (13:59)
[2019-05-20] MEDS: Finasteride 5 MG Tablet PO (14:01)
[2019-05-20] MEDS: Isosorbide Mononitrate 30 MG Tablet PO (14:08)
[2019-05-20] MEDS: 0.9% Normal Saline 1,000 ML 75 ML IV (14:09)
--- NOTE | 2019-05-20 14:41 | CASEMGMT ---
Case Management Progress Note: This flex o writer operator went to patient bedside and patient having blood drawn, at bedside. Introduced self and role, explained and reviewed HI form with in regards to patient's treatment for CP. Notified and aware that Outpatient billing is determined by patient insurance policy and status during hospital stay is reviewed for changes in condition that may warrant Inpatient stay. States understanding and form was signed and placed in patient chart. Copy given to patient/ at bedside. [place] RNCM
--- NOTE | 2019-05-20 15:30 | NURSING ---
when this RN walked in to pt's room pt had TR band off of wrist. Pt stated I cheated, I just took it off. Its not bleeding so its ok. There were no signs of bleeding or hematoma. This RN placed TR band back on patiet and removed 3ml air. Pt instructed to leave TR band on wrist until all of the air is completely removed. 4ml air remaining
--- NOTE | 2019-05-20 17:28 | PCM.PROGNOTE ---
Patient Problems: Active and Suspected Problems (Last Reviewed 05/19/19 @ 10:53 by Jeannette Bear DO) Angina at rest (Acute) Hypokalemia (Acute) Dehydration (Acute) Subjective: All events the past 24 hours of been reviewed. He is afebrile and hemodynamically stable. Pulse ox has ranged from 93 to 97% on room air today. All lab was personally reviewed. Total cholesterol is 119 and the LDL is 57 with a low HDL at 27. Creatinine is stable at 1.25. He went for cardiac cath today and there is no documentation of the results on the chart yet but, the patient's was told that the stents are open and there was a small artery that was occluded and Dr. Addison was able to pass a wire but not a balloon. He has been started on indoor 30 mg p.o. daily and already received his first dose. He denies any cephalgia. He denies chest pain or shortness of breath. He does complain of feeling fatigued this afternoon. - Physical Exam General: Alert, Oriented x3, Cooperative HEENT: Atraumatic, PERRLA, EOMI, Normocephalic Oral: Moist Mucosa, No Gingival or Mucosal Lesions/ Ulcerations Neck: Supple, No JVD, Negative Carotid Bruits Lungs: Clear to auscultation, Normal air movement Cardiovascular: Regular rate, Regular Rhythm, Normal S1, Normal S2, No murmurs, No Gallop Abdomen: Bowel Sounds Present, Soft, Non Tender, Non-Distended Extremities: No edema, Capillary Refill Less than 3 Seconds, Peripheral Pulses Normal Skin: No rashes, No breakdown Musculoskeletal: No Tenderness to Palpation of Joints or Extremities Neurological: Cranial nerves II-XII grossly intact, Neuro grossly intact Psych/Mental Status: Normal Affect, Appropriate Vital Signs Temp Pulse Resp BP Pulse Ox 98.3 F 72 16 130/81 H 94 05/20/19 16:11 05/20/19 16:11 05/20/19 16:11 05/20/19 16:11 05/20/19 16:11 Oxygen Delivery Method Room Air Weight: 287 lb 11.252 oz Body Mass Index (BMI) 37.9 Intake and Output for Last 24 Hours 05/18/19 05/19/19 05/20/19 23:59 23:59 23:59 Intake Total 2082079 127.5 / 127.5 Balance 2079 127.5 / 127.5 Laboratory Tests Past 24 Hrs 05/20/19 05/20/19 05/20/19 04:46 04:46 04:46 WBC 6.7 RBC 5.50 Hgb 15.7 Hct 46.9 MCV 85.3 MCH 28.5 MCHC 33.5 RDW Std Deviation 43.7 RDW Coeff of Shantelle 14.2 Plt Count 148 L MPV 9.8 PT 14.5 INR 1.2 APTT 32.4 Sodium 143 Potassium 3.5 Chloride 108 H Carbon Dioxide 27.0 Anion Gap 8 BUN 21 H Creatinine 1.25 Estim Creat Clear Calc 63.03 Est GFR (MDRD) Af Amer 74 Est GFR (MDRD) Non-Af 61 BUN/Creatinine Ratio 16.8 Glucose 109 H Calcium 8.4 L Total Bilirubin 0.50 AST 14 L ALT 14 L Alkaline Phosphatase 84 Troponin I Total Protein 6.4 Albumin 3.0 L Globulin 3.4 Albumin/Globulin Ratio 0.9 Triglycerides 173 Cholesterol 119 LDL Cholesterol 57 VLDL Cholesterol 35 HDL Cholesterol 27 L 05/20/19 04:46 WBC RBC Hgb Hct MCV MCH MCHC RDW Std Deviation RDW Coeff of Shantelle Plt Count MPV PT INR APTT Sodium Potassium Chloride Carbon Dioxide Anion Gap BUN Creatinine Estim Creat Clear Calc Est GFR (MDRD) Af Amer Est GFR (MDRD) Non-Af BUN/Creatinine Ratio Glucose Calcium Total Bilirubin AST ALT Alkaline Phosphatase Troponin I 0.511 H Total Protein Albumin Globulin Albumin/Globulin Ratio Triglycerides Cholesterol LDL Cholesterol VLDL Cholesterol HDL Cholesterol Medical Necessity - Tobacco Use Smoking Status: Never smoker Assessment/Plan All Active Problems (Last Reviewed 05/19/19 @ 10:53 by Jeannette Bear DO) Angina at rest (Acute) Hypokalemia (Acute) Dehydration (Acute) Impressions 1. NSTEMI in a pt with hx of CAD with 2 JANNETTE's to the LAD in February 2019 and an abnormal EKG. Admit to a monitored bed on PCU. Troponin #4 was 0.511. Taken for cardiac cath on 05/20/19. No intervention. Started on Imdur. Awaiting the report of the cath. 2. Coronary artery disease with history of 2 drug-eluting stents to the proximal and mid LAD on 03/25/2019. Continue home meds. Imdur added to drug regimen following the cardiac cath. 3. Ischemic cardiomyopathy with a 35-40% EF on left ventriculogram and 45% on the ECHO done 1 day after cardiac cath and intervention in February 2019 4. Hypokalemia-resolved 5. Mild dehydration with increased hemoglobin to 17.8 with a hematocrit of 51. 1 L of D5 half-normal saline at 100 cc/h then discontinue. Repeat hemoglobin is normal at 15.7 6. Pulmonary hypertension 7. Hypertension/hyperlipidemia/GERD/obesity/BPH-continue home medications Add potassium supplement to his daily drug regimen to keep the potassium around 4 Code Visit OBSV E&M: 30792 Subsequent observation care L2
--- NOTE | 2019-05-20 21:49 | ECHOD_ITS ---
Reason For Study: CAD Procedure This was a 2D Doppler, Color Flow transthoracic echocardiogram. The study was technically difficult. Exam performed portable in patient room. Left Ventricle Normal LV size. Mild concentric left ventricular hypertrophy. Mild segmental systolic dysfunction (see wall motion). The estimated ejection fraction is 50 %. Diastolic function is indeterminate. Mid-Anterior : Hypokinetic. Mid-inferoseptal : Hypokinetic. Mid-anteroseptal : Hypokinetic. Anterior [place] : Hypokinetic. Septal [place] : Hypokinetic. Right Ventricle Normal RV size. Normal systolic function. Atria Normal left atrium. Normal right atrium. No doppler evidence for ASD. Mitral Valve There is no mitral annular calcification. Normal mitral valve. Trivial mitral valve insufficiency. Tricuspid Valve Normal tricuspid valve. Trivial tricuspid valve insufficiency. Right ventricular systolic pressure estimated to be 21 mmHg. Aortic Valve Trisinus/trileaflet aortic valve. Mild focal aortic valve calcification. Trivial aortic valve insufficiency. Pulmonic Valve The pulmonic valve is not well visualized. Great Vessels Mildly dilated aortic root. Pericardium/Pleural No pericardial effusion. Medication Unable to do Definity -pt did not have IV. MMode/2D Measurements & Calculations LVIDd: 4.9 cm IVSd: 1.3 cm Ao root diam: 4.1 cm LVIDs: 3.3 cm LVPWd: 1.3 cm RVDd: 2.9 cm FS: 32.8 % LAV(MOD-bp): 52.5 ml LA A4 area: 19.1 cm2 LA dimension(2D): 5.3 cm LAV(MOD-bp) Indexed: 20.9 ml/m2 LAV(MOD-sp2): 56.6 ml LAV(MOD-sp4): 51.5 ml RA A4 area: 16.7 cm2 Time Measurements MV dec time: 0.23 sec Doppler Measurements & Calculations MV E max pradeep: 68.2 cm/sec Lat Peak E' Pradeep: 5.8 cm/sec Med Peak E' Pradeep: 3.5 cm/sec MV A max pradeep: 101.9 cm/sec E/E' lat: 11.7 E/E' med: 19.6 MV E/A: 0.67 Ao V2 max: 126.3 cm/sec LV V1 max: 116.2 cm/sec PA V2 max: 90.3 cm/sec Ao max P.4 mmHg LV V1 max P.4 mmHg TR max pradeep: 211.7 cm/sec TR max P.9 mmHg Interpretation Summary The study was technically difficult. Mild segmental systolic dysfunction (see wall motion). The estimated ejection fraction is 50 %. Mild concentric left ventricular hypertrophy. Trivial mitral valve insufficiency. Trivial tricuspid valve insufficiency. Trivial aortic valve insufficiency. Mildly dilated aortic root. Right ventricular systolic pressure estimated to be 21 mmHg. Diastolic function is indeterminate. Ordering Physician: Michele Crouch Performed By: Laurel Bowen, CARYCS, RVT
--- NOTE | 2019-05-20 22:09 | NURSING ---
During this rounding of the pt., nurse signed noted the IV was removed from pt. and hidden in bed per pt. IVF was still running at that time. Previously at 1999 round, it was noted that the pt. was trying to silence the pump. Nurse instructed pt. to call if the pump beeps, pump locked at that time. Pt. refuses to have another IV placed. MD to be updated.
[2019-05-20] MEDS: Pravastatin 80 MG Tablet PO (22:24)
[2019-05-21 03:05] VITALS: PULSE 59
[2019-05-21 03:36] VITALS: BP 113/59; PULSE 72; RESP 18; TEMP 36.8; O2SAT 93
[2019-05-21 05:39] LABS: Hematocrit 47.8 % (40-54); Hemoglobin 16.1 g/dL (13.0-16.5)
[2019-05-21 05:48] LABS: Anion Gap 10 (5-15); BUN 22 mg/dL (7-18); BUN/Creat Ratio 17.7 RATIO (10-20); Chloride 108 mmol/L (98-107); Creatinine, Serum 1.24 mg/dL (0.70-1.30); EST Glomerular Filtration Rate 61 mL/min (>60); Est Glom Filt Rate - Afr Amer 74 mL/min (>60); Estimated Creatinine Clearance 63.54 ml/min; Glucose 96 mg/dL (74-106); Magnesium 2.1 mg/dL (1.6-2.6); Potassium 3.7 mmol/L (3.5-5.1); Sodium Level 144 mmol/L (136-145)
--- NOTE | 2019-05-21 05:55 | EKG12_ITS ---
Test Reason : Blood Pressure : / mmHG Vent. Rate : 073 BPM Atrial Rate : 073 BPM P-R Int : 184 ms QRS Dur : 088 ms QT Int : 418 ms P-R-T Axes : 021 002 111 degrees QTc Int : 460 ms Normal sinus rhythm Low voltage QRS Cannot rule out Anteroseptal infarct , age undetermined T wave abnormality, consider lateral ischemia Abnormal ECG When compared with ECG of 20-MAY-2019 04:42, MANUAL COMPARISON REQUIRED, DATA IS UNCONFIRMED Confirmed by LEONARDO BARRAZA, STACY ([id number]), experimental assembler IVA VENCES ([id number]) on 05/23/2019 10:39:46 A M Referred By: Akil Conway Confirmed By:RACHEL PATTERSON MD
[2019-05-21 07:03] VITALS: PULSE 51
[2019-05-21 07:04] VITALS: O2SAT 96
[2019-05-21 09:36] VITALS: BP 130/87; PULSE 72; RESP 16; TEMP 36.5; O2SAT 97
--- NOTE | 2019-05-21 10:13 | PN.CARD_ITS ---
Subjectve: The patient is awake and alert. He has been up and ambulating. He denies ongoing chest discomfort. Objective: Vital Signs Temp Pulse Resp BP Pulse Ox 98.2 F 51 L 18 113/59 L 96 05/21/19 03:36 05/21/19 07:03 05/21/19 03:36 05/21/19 03:36 05/21/19 07:04 Oxygen Delivery Method Room Air Weight: 283 lb 4.704 oz Body Mass Index (BMI) 37.9 Intake and Output for Last 24 Hours 05/19/19 05/20/19 05/21/19 23:59 23:59 23:59 Intake Total 2079 / 2079 1353.75 / 1353.75 360 / 360 Output Total 200 / 200 Balance 2079 / 2079 1353.75 / 1353.75 160 / 160 General: Awake, Alert, Oriented x 3, Cooperative, No Acute Distress, Obese HEENT: Atraumatic, Normocephalic, PERRL, EOMI, Sclera Non Icteric Oral: Moist Mucosa Neck: Supple, Good ROM, No JVD Lungs: Clear to auscultation Cardiovascular: Regular Rhythm, Normal S1, Normal S2 Vascular: Normal Radial Pulses Abdomen: Bowel Sounds Present, Soft, Non Tender Extremities: No edema Psych/Mental Status: Appropriate 05/21/19 04:48: Hgb 16.1, Hct 47.8 05/21/19 04:48: Sodium 144, Potassium 3.7, Chloride 108 H, Carbon Dioxide 26.0, Anion Gap 10, BUN 22 H, Creatinine 1.24, Est GFR (MDRD) Af Amer 74, Est GFR (MDRD) Non-Af 61, BUN/Creatinine Ratio 17.7, Glucose 96, Calcium 9.0, Magnesium 2.1 Rhythm: Sinus rhythm ECHO: Pending Medical Necessity - Tobacco Use Smoking Status: Never smoker Assessment/Plan 1. Non-ST segment elevation [place] The patient presents with symptoms and objective findings concerning for a recurrent acute coronary syndrome with recurrent acute non-ST segment elevation [place]. His troponin I levels have trended up. His ECG demonstrates the aforementioned findings. He has undergone further evaluation with diagnostic cardiac catheterization. He was noted to have an occluded diagonal branch filling from left to left collaterals. 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 An attempt was made to perform PTCA of this vessel, however, as this vessel arose from the LAD stent it was unable to be intervened upon. Thus the patient will continue medical management. His medications have been expanded to include nitrates. 2. CAD status post LAD PCI At the present time he will continue medical management. After he recuperates from his current event he was asked to reinitiate cardiac rehabilitation. 3. Ischemic mediated cardiomyopathy The patient does have, based on his most recent evaluations, concerns of diminished LV systolic function thought secondary to his underlying somewhat recent acute coronary syndrome event requiring LAD repeat PCI. Echocardiogram is pending to reassess his left ventricular wall motion and systolic function and help guide further evaluation and care. 4. Hyperlipidemia He will continue medical therapy and follow-up. 5. Hypertension His blood pressure will be monitored. Medications to be adjusted as needed. Comment: The above was discussed with the patient and Dr. Bear. This note was generated using a voice recognition system and there may be incorrect words, spelling or punctuation that were not noted when reviewing the office note prior to saving.
[2019-05-21] MEDS: hydroCHLOROthiazide 25 MG Tablet PO (10:16)
[2019-05-21 10:17] VITALS: PULSE 72
[2019-05-21] MEDS: Aspirin E.C. 81 MG Tablet PO (10:17)
[2019-05-21] MEDS: Metoprolol(XL)Succ 100 MG Tablet PO (10:17)
[2019-05-21] MEDS: Pantoprazole Sodium 40 MG Tablet PO (10:17)
[2019-05-21] MEDS: Losartan Potassium 100 MG Tablet PO (10:17)
[2019-05-21] MEDS: cloNIDine HCl 0.1 MG Tablet PO (10:17)
[2019-05-21] MEDS: Tamsulosin HCl 0.4 MG Capsule 0.8 MG PO (10:18)
[2019-05-21] MEDS: TICAGRELOR 90 MG TABLET PO (10:18)
[2019-05-21] MEDS: Tolterodine Tartrate 4 MG CAP.SA PO (10:18)
[2019-05-21] MEDS: Finasteride 5 MG Tablet PO (10:19)
[2019-05-21] MEDS: Isosorbide Mononitrate 30 MG Tablet PO (10:23)
--- NOTE | 2019-05-21 14:53 | DCINST_ITS ---
- Discharge Diagnoses Current Active Problems: Current Active and Chronic Problems (Last Reviewed 05/19/19 @ 10:53 by Jeannette Bear DO) Angina at rest (Acute) Hypokalemia (Acute) Dehydration (Acute) You will use the following diet at home:: Cardiac Your food should be the consistency of: Regular Your liquids should be the consistency of: Regular/Thin Discharge Activity: - - return to cardiac rehab May resume sexual activity in: 10-14 days Weight Bearing Status: Weight bearing as tolerated Call your doctor if your incision/area has: Continuous Slow Oozing, Sudden Increased Bleeding, Increased Pain/ Swelling, Increased Redness, Foul Smelling Discharge, Swelling at the incision site, - - from the puncture wound in the right wrist Call your doctor if you observe: Fever of 101 or Higher, Shortness of breath, Dizziness, Fainting spells, Swelling in the ankles, Chest pain Instructions: Taking Fast-Acting Nitroglycerin Pending Tests on Discharge: none Allergies/Adverse Reactions: Allergies No Known Allergies Allergy (Verified 05/19/19 08:07) Medications to take at Discharge Metoprolol Succinate [Toprol Xl] 100 mg PO DAILY 12/26/16 Pantoprazole Sodium [Protonix] 40 mg PO DAILY 12/26/16 Pravastatin [Pravachol] 40 mg PO QHS 12/26/16 Amlodipine Besylate/Valsartan [Amlodipine-Valsartan 10-320 mg] 1 tab PO DAILY 03/26/19 Clonidine HCl 0.1 mg PO BID 03/26/19 Finasteride [Proscar] 5 mg PO DAILY 03/26/19 Tamsulosin HCl [Flomax] 0.8 mg PO DAILY 03/26/19 Trospium Chloride [Sanctura Xr] 60 mg PO DAILY 03/26/19 hydrochlorothiazide 25 mg tablet 25 mg PO QDAY #90 tab 05/07/19 Aspirin E.C. [Ecotrin] 81 mg PO DAILY@0800 05/19/19 Ticagrelor [Brilinta] 90 mg PO BID 05/19/19 Isosorbide Mononitrate [Imdur] 30 mg PO DAILY #60 tab 05/21/19 Nitroglycerin (INPATIENT USE) [Nitrostat] 0.4 mg SUBLINGUAL Q5M PRN #1 bottle 09/25/19 Potassium Chloride [K-Dur] 20 meq PO DAILYCM #30 tab 05/21/19 The following prescriptions were given: Isosorbide Mononitrate [Imdur] 30 mg PO DAILY #60 tab Transmission Status: [facility] to [id number] Potassium Chloride [K-Dur] 20 meq PO DAILYCM #30 tab Transmission Status: [id number] Nitroglycerin (INPATIENT USE) [Nitrostat] 0.4 mg SUBLINGUAL Q5M PRN #1 bottle PRN Reason: Cardiac/Chest Pain Transmission Status: [id number] Primary Care Physician: Care Physician,No Primary [Primary Care Provider] - Test Results: Test results from this visit will be discussed in further detail at your follow- up appointment, if applicable. Please Follow Up With: Michele Crouch MD When: 2-3 weeks Proposed Discharge Date: 05/21/19
--- NOTE | 2019-05-21 15:34 | PHA.DC.MR ---
Pharmacy Service has performed discharge medication reconciliation for this patient. Home Medications Metoprolol Succinate [Toprol Xl] 100 mg PO DAILY 12/26/16 Pantoprazole Sodium [Protonix] 40 mg PO DAILY 12/26/16 Pravastatin [Pravachol] 40 mg PO QHS 12/26/16 Amlodipine Besylate/Valsartan [Amlodipine-Valsartan 10-320 mg] 1 tab PO DAILY 03/26/19 Clonidine HCl 0.1 mg PO BID 03/26/19 Finasteride [Proscar] 5 mg PO DAILY 03/26/19 Tamsulosin HCl [Flomax] 0.8 mg PO DAILY 03/26/19 Trospium Chloride [Sanctura Xr] 60 mg PO DAILY 03/26/19 hydrochlorothiazide 25 mg tablet 25 mg PO QDAY #90 tab 05/07/19 Aspirin E.C. [Ecotrin] 81 mg PO DAILY@0800 05/19/19 Ticagrelor [Brilinta] 90 mg PO BID 05/19/19 Isosorbide Mononitrate [Imdur] 30 mg PO DAILY #60 tab 05/21/19 Nitroglycerin (INPATIENT USE) [Nitrostat] 0.4 mg SUBLINGUAL Q5M PRN #1 bottle 05/21/19 Potassium Chloride [K-Dur] 20 meq PO DAILYCM #30 tab 05/21/19 The patient's discharge medication list was reviewed for discrepancies and discrepancies were resolved.
--- NOTE | 2019-05-21 19:41 | PCM.DC.SUM ---
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 - Secondary Discharge Diagnosis Chronic Problems (Last Reviewed 05/19/19 @ 10:53 by Jeannette Bear DO) Obesity due to excess calories (Chronic) Secondary pulmonary arterial hypertension (Chronic) - ECHO this admission shows a PA systolic estimated at 21 which is normal Ischemic cardiomyopathy (Chronic) 45% EF on echocardiogram 03/26/2019 - 50% on ECHO done 05/21/19 Presence of stent in coronary artery (Chronic 03/25/19) [id number] LAD w/ 3.0 x 20 mm Promus Synergy Stent and JANNETTE-Mid LAD w/ 2.5 x 32 mm Promus Synergy Stent w/ POBA - Prox-Mid D2 12/27/2016; PTCA/JANNETTE to LAD with Thrombectomy 03/25/19 Atherosclerotic heart disease of [place] coronary artery without angina pectoris (Chronic) [id number] LAD w/ 3.0 x 20 mm Promus Synergy Stent and JANNETTE-Mid LAD w/ 2.5 x 32 mm Promus Synergy Stent w/ POBA - Prox-Mid D2 12/27/2016; thrombectomy and drug-eluting stent to mid LAD on 03/25/2019; Hyperlipidemia (Chronic) Hypertension (Chronic) Mild concentric left ventricular hypertrophy Hospital Course and Treatment Imaging Results: Clinical Impression(s) from Imaging Studies Chest X-Ray 05/19/19 08:17 IMPRESSION: Elevation of the right hemidiaphragm with mild increased markings at the right lung base suggestive of atelectasis. Moderate cardiomegaly. Electronically Signed: Kwasi Knight, at 8:54 EDT , Service support , Laboratory Results - last 24 hr 05/21/19 05/21/19 04:48 04:48 Hgb 16.1 Hct 47.8 Sodium 144 Potassium 3.7 Chloride 108 H Carbon Dioxide 26.0 Anion Gap 10 BUN 22 H Creatinine 1.24 Estim Creat Clear Calc 63.54 Est GFR (MDRD) Af Amer 74 Est GFR (MDRD) Non-Af 61 BUN/Creatinine Ratio 17.7 Glucose 96 Calcium 9.0 Magnesium 2.1 [facility] Operations: None Procedures: 2-D Echocardiogram - Interpretation Summary The study was technically difficult. Mild segmental systolic dysfunction (see wall motion). The estimated ejection fraction is 50 %. Mild concentric left ventricular hypertrophy. Trivial mitral valve insufficiency. Trivial tricuspid valve insufficiency. Trivial aortic valve insufficiency. Mildly dilated aortic root. Right ventricular systolic pressure estimated to be 21 mmHg. Diastolic function is indeterminate., Cardiac catheterization Summary of Care Provided: The patient is a 69 year old M with a past medical history of hypertension, hyperlipidemia, osteoarthritis with chronic knee pain, coronary artery disease with history of PCI/JANNETTE to the proximal LAD and mid LAD on 03/25/2019, ischemic cardiomyopathy with a 45% ejection fraction on 03/26/2019, BPH, DVT in the past, TIAs, GERD, obesity and pulmonary HTN who was driving to cardiac rehab 0n 05/19/19 when he had sudden onset of right side chest pain with radiation down the right arm. He denied shortness of breath, diaphoresis, palpitations, nausea/vomiting. He did not take nitroglycerin and he has no NTG at home. When he arrived at cardiac rehab he was sent to the emergency department. All in all the pain lasted approximately 15 minutes and then resolved on its own. Vital signs at presentation to the emergency department were temperature 98.2 ?F, heart rate 76, blood pressure 147/111, respiratory rate 18 and he was 94% saturated on room air. CBC was remarkable for an increased hemoglobin at 17.6. BMP showed a potassium of 3.4, BUN of 19 and creatinine of 1.27. Troponin was indeterminate at 0.044. EKG showed inverted T waves in V1, V2, lead I and lead aVL. This may be due to the evolution of STEMI in February of 2019 or to ischemia. No CXR was done. He is fairly inactive because of chronic knee pain and exercises only at cardiac rehab. He has occasional SOB and he attributes this to Brilinta because it is the only new drug and one of the side effects is dyspnea. He was admitted to a monitored bed on PCU and serial cardiac enzymes were obtained. Troponin increased from 0.044 at admission to 0.511 on 05/20/2019 at approximately 5 AM. He was seen in consultation by both Dr. Meaghan Sanz and Dr. Crouch and was scheduled for a cardiac catheterization on 05/20/19. The cath report is not in the computer at the time of his DC but apparently the recently placed stents were open. Per Dr. Crouch's progress note on 05/21/2019 he had an occluded diagonal branch which was filling from left to left collaterals. 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 He was started on indoor 30 mg daily and return to PCU. Overnight he denied chest pain and shortness of breath at rest. He had no cephalgia with the Imdur. Telemetry showed normal sinus rhythm and sinus bradycardia with no significant ectopy. An echocardiogram was done prior to discharge and showed a left ventricular ejection fraction of 50%, up from 45% in February 2019. There was mild left ventricular hypertrophy and no significant valvular heart disease. The right ventricular systolic pressure was estimated at 21. He was encouraged to ambulate in the halls and did so with no chest discomfort. He was discharged home with a prescription for Imdur 30 mg daily and a prescription for Nitrostat. He was instructed in the proper use of Nitrostat and given printed instructions. He will follow-up with Dr. Crouch in the office in 2 weeks. He will resume cardiac rehab. General: Alert, Oriented x3, Cooperative, NAD He walks with a pronounced limp but refused AD when seen by PT because he limits his activity to control the knee pain and is happy with this HEENT: Atraumatic, PERRLA, EOMI, Normocephalic Oral: Moist Mucosa, No Gingival or Mucosal Lesions/ Ulcerations Neck: Supple, No JVD, Negative Carotid Bruits Lungs: Clear to auscultation, Normal air movement Cardiovascular: Regular rate, Regular Rhythm, Normal S1, Normal S2, No murmurs, No Gallop Abdomen: Bowel Sounds Present, Soft, Non Tender, Non-Distended, obese Extremities: No edema, Capillary Refill Less than 3 Seconds, Peripheral Pulses Normal. The right wrist was examined and there is no blood on the bandage. There is no hematoma formation and no bruising. Skin: No rashes, No breakdown Musculoskeletal: No Tenderness to Palpation of Joints or Extremities Neurological: Cranial nerves II-XII grossly intact, Neuro grossly intact Psych/Mental Status: Normal Affect, Appropriate This note was generated with [employer] dictation software. It may contain incorrect words, spelling, and punctuation that were not noted in checking the note before signing. Patient Problems: Active and Suspected Problems (Last Reviewed 05/19/19 @ 10:53 by Jeannette Bear DO) NSTEMI (non-ST elevated myocardial infarction) (Acute) - Physical Exam Vital Signs Temp Pulse Resp BP Pulse Ox 97.7 F L 72 16 130/87 H 97 05/21/19 09:36 05/21/19 10:17 05/21/19 09:36 05/21/19 09:36 05/21/19 09:36 Oxygen Delivery Method Room Air Weight: 283 lb 4.704 oz Body Mass Index (BMI) 37.9 Intake and Output for Last 24 Hours 05/19/19 05/20/19 05/21/19 23:59 23:59 23:59 Intake Total 2079 / 2079 1353.75 / 1353.75 600 / 600 Output Total 200 / 200 Balance 2079 / 0 1353.75 / 1353.75 400 / 400 Laboratory Tests Past 24 Hrs 05/21/19 05/21/19 04:48 04:48 Hgb 16.1 Hct 47.8 Sodium 144 Potassium 3.7 Chloride 108 H Carbon Dioxide 26.0 Anion Gap 10 BUN 22 H Creatinine 1.24 Estim Creat Clear Calc 63.54 Est GFR (MDRD) Af Amer 74 Est GFR (MDRD) Non-Af 61 BUN/Creatinine Ratio 17.7 Glucose 96 Calcium 9.0 Magnesium 2.1 Discharge Activity: - - return to cardiac rehab May resume sexual activity in: 10-14 days Weight Bearing Status: Weight bearing as tolerated Call your doctor if your incision/area has: Continuous Slow Oozing, Sudden Increased Bleeding, Increased Pain/ Swelling, Increased Redness, Foul Smelling Discharge, Swelling at the incision site, - - from the puncture wound in the right wrist Call your doctor if you observe: Fever of 101 or Higher, Shortness of breath, Dizziness, Fainting spells, Swelling in the ankles, Chest pain Home Medications: Medications to take at Discharge Metoprolol Succinate [Toprol Xl] 100 mg PO DAILY 12/26/16 Pantoprazole Sodium [Protonix] 40 mg PO DAILY 12/26/16 Pravastatin [Pravachol] 40 mg PO QHS 12/26/16 Amlodipine Besylate/Valsartan [Amlodipine-Valsartan 10-320 mg] 1 tab PO DAILY 03/26/19 Clonidine HCl 0.1 mg PO BID 03/26/19 Finasteride [Proscar] 5 mg PO DAILY 03/26/19 Tamsulosin HCl [Flomax] 0.8 mg PO DAILY 03/26/19 Trospium Chloride [Sanctura Xr] 60 mg PO DAILY 03/26/19 hydrochlorothiazide 25 mg tablet 25 mg PO QDAY #90 tab 05/07/19 Aspirin E.C. [Ecotrin] 81 mg PO DAILY@0800 05/19/19 Ticagrelor [Brilinta] 90 mg PO BID 05/19/19 Isosorbide Mononitrate [Imdur] 30 mg PO DAILY #60 tab 05/21/19 Nitroglycerin (INPATIENT USE) [Nitrostat] 0.4 mg SUBLINGUAL Q5M PRN #1 bottle 05/21/19 Potassium Chloride [K-Dur] 20 meq PO DAILYCM #30 tab 05/21/19 Following Prescrptions Were Given to Patient: Isosorbide Mononitrate [Imdur] 30 mg PO DAILY #60 tab Transmission Status: [id number] Potassium Chloride [K-Dur] 20 meq PO DAILYCM #30 tab Transmission Status: Received by [facility]/pharmacy #[id number] Nitroglycerin (INPATIENT USE) [Nitrostat] 0.4 mg SUBLINGUAL Q5M PRN #1 bottle PRN Reason: Cardiac/Chest Pain Transmission Status: [id number] Primary Care Physician: Care Physician,No Primary [Primary Care Provider] - Please Follow Up With: Michele Crouch MD When: 2-3 weeks Patient Instructions: Taking Fast-Acting Nitroglycerin Minutes spent on discharge:: 30 Patient Condition:: Stable Medical Necessity - Tobacco Use Smoking Status: Never smoker Tobacco Use: Non-smoker Meaningful Use Info Meaningful Use Diagnoses (Choose all that apply): AMI - AMI Aspirin given w/in 24hrs of arrival?: Yes ASA at discharge?: Yes Statins at discharge?: Yes Robin/ARB at discharge?: Yes Beta [place] at discharge?: Yes Done w/ Acute VT measure.: Yes Documented LVEF (%): 50 Code Visit OBSV E&M: [id number] Observation care discharge
--- NOTE | 2019-05-22 09:59 | CL.I_ITS ---
Patient Name: SHERI VUONG Study Date: 05/20/2019 Performing: Zana Addison MD Ht: 72.83 inches 185 cm : 1950 Wt: 288.81 lbs 131 kg Age: 69 Gender: male BSA: 2.51 PROCEDURE(S) PERFORMED [id number], SINGLE CORONARY ARTERY CLINICAL PROFILE AND CO-MORBIDITIES Indications: ACS <= 24 hrs Heart Failure: None Stress/Imaging Stress/Image Study Performed: No Angina Classification Anginal Classification w/in 2 Weeks: CCS IV CAD Presentations: Non-STEMI. 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 RECOMMENDATIONS Maximal medical therapy for CAD/Angina DESCRIPTION OF PROCEDURE The patient arrived to the procedure lab. The risks and benefits of the procedure as well as a full d escription of our services here and current unavailability of surgical backup were fully explained to the patient and/or their significant other prior to the catheterization. The Timeout was completed, verifying the correct patient and procedure. The patient's procedural site was prepped and draped in the usual fashion. Local anesthetic was given subcutaneously to right radial region with Lidocaine 2% Using a modified Seldinger technique,arterial access was obtained via the right radial artery, a 6Fr sheath was inserted. Left Coronary Artery selective angiography was performed in multiple views usin g a 5 Fr. 4.0 Capulin catheter. Right Coronary Artery selective angiography was then performed in multi ple views using a 5 Fr. 3DRC (Vj) catheter. Left Ventriculography was performed in MIGUEL projecti on using a 5 Fr. Pigtail catheter. LV to AO pullback pressures were then recorded.The images were reviewed and options discussed. A decision was then made to proceed with an Intervention, IVUS or other adjunct procedure. XB 3.0 Guide catheter was inserted and engaged into the LCA. BMW Guide wire was advanced to the 2 nd Septal Green Marketing Analyst. 1.5 x 15 Emerge Balloon catheter was inserted. The arterial sheath was pulled and a TR Band was applied for hemostasis 12cc air INTERVENTION INFORMATION LESION SITE: LAD (Septal) Lesion Complexity: High/C, chronic total occlusion: No, lesion at bifurcation: Yes, thrombus present: No, lesion length: 4 mm, culprit lesion: Yes, Previously treated lesion: No Pre Stenosis: 99 % Pre intervention AVILA flow: 2 PROCEDURE: Balloon Angioplasty (unsuccessful- balloon did not cross the struts of the previously deloyed stent). Post Stenosis: 99 % Post intervention AVILA flow: 2 Lesion Devices: Cordis 6 Fr XB3.5 100cm Guide Catheter Gar .014 BMW Enterprise Straight 190cm James Sci EMERGE MR 1.50x15 BALLOON COMPLICATIONS No Complications PROCEDURE MEDICATIONS Versed 1 mg IV Fentanyl 50 mcg IV Fentanyl 50 mcg IV Versed 1 mg IV Oxygen: 2 L/min via nasal cannula Heparin 8000 unit(s) IV 05/20/2019 12:45:33 SUMMARY OF HEMODYNAMIC DATA Time AIR REST ECG 10:53:19 AO 115/82 (100) SA 11:46:55 LV 152/15, 34 12:13:39 LV 152/16, 32 12:13:45 LV 152/13, 39 12:15:03 LV 150/13, 40 12:15:09 LVp 150/14, 36 12:15:14 AOp 152/91 (116) 12:15:19 Signed By Zana Addison MD On 05/21/2019 10:29:24 Zana Addison MD
--- NOTE | 2019-05-22 09:59 | CL.D_ITS ---
Patient Name: SHERI VUONG Study Date: 05/20/2019 Performing: Michele Crouch MD Ht: 73 inches 185 cm : 1950 Wt: 289.2 lbs 131 kg Age: 69 Gender: male BSA: 2.51 PROCEDURE(S) PERFORMED AC86-FEB/COR/LV CLINICAL PROFILE AND INDICATIONS Indications: ACS <= 24 hrs Heart Failure: None Stress/Imaging Stress/Image Study Performed: No Angina Classification Anginal Classification w/in 2 Weeks: CCS IV CAD Presentations: Non-STEMI. CONCLUSIONS Elevated Left Ventricular End Diastolic Pressure RECOMMENDATIONS Risk factor modification Medical therapy Referred for immediate PCI (Of Note: Subsequent attempt at PCI of the SP #[address] Cyril simmons. The attempt was unsuccessful secondary to not being able to pass the angioplasty balloon throu gh the LAD stent into the septal research pharmacist) DESCRIPTION OF PROCEDURE The patient arrived to the procedure lab. The risks and benefits of the procedure as well as a full d escription of our services here and current unavailability of surgical backup were fully explained to the patient and/or their significant other prior to the catheterization. The Timeout was completed, verifying the correct patient and procedure. The patient's procedural site was prepped and draped in the usual fashion. Local anesthetic was given subcutaneously to right radial region with Lidocaine 2% . Using a modified Seldinger technique, arterial access was obtained via the right radial artery, a 6 Fr sheath was inserted. Left Coronary Artery selective angiography was performed in multiple views u sing a 5 Fr. 4.0 Cranberry catheter. Right Coronary Artery selective angiography was then performed in mu ltiple views using a 5 Fr. 3DRC (Vj) catheter. Left Ventriculography was performed in MIGUEL proje ction using a 5 Fr. Pigtail catheter. LV to AO pullback pressures were then recorded.The arterial sheath was pulled and a TR Band was applied for hemostasis 12cc air CORONARY ANGIOGRAPHY DOMINANCE: Right Dominant LEFT HEART ASSESSMENT Left Ventricular Ejection Fraction: by LV Gram 45 % Anterior Hypokinesis. Apical Hypokinesis Elevated Left Ventricular End Diastolic Pressure LVEDP: 32 mmHg LEFT MAIN: Angiographically normal LEFT ANTERIOR DESCENDING ARTERY: PROX LAD: eccetric: 10 - 25 % Stenosis MID LAD: Previously placed stent is patent, Mild luminal irregularities DIAGONAL 1: Proximal - Mild luminal irregularities DIAGONAL 2: Proximal - Mild luminal irregularities DIAGONAL 3: Ostial - is occluded and fills late and partially from left to left collateral flow SEPTAL: #2: ostial 99% stenosis CIRCUMFLEX ARTERY: OM 1: Proximal - eccentric: 25 % Stenosis RIGHT CORONARY ARTERY: Mild luminal irregularities VALVE FINDINGS: Normal Aortic Valve function Normal Mitral Valve function AORTIC ROOT: Angiographically normal COMPLICATIONS No Complications PROCEDURE MEDICATIONS Versed 1 mg IV Fentanyl 50 mcg IV Fentanyl 50 mcg IV Versed 1 mg IV Oxygen: 2 L/min via nasal cannula Heparin 8000 unit(s) IV 05/20/2019 12:45:33 SUMMARY OF HEMODYNAMIC DATA Time AIR REST ECG 10:53:19 AO 115/82 (100) SA 11:46:55 LV 152/15, 34 12:13:39 LV 152/16, 32 12:13:45 LV 152/13, 39 12:15:03 LV 150/13, 40 12:15:09 LVp 150/14, 36 12:15:14 AOp 152/91 (116) 12:15:19 Signed By Michele Crouch MD On 05/20/2019 21:47:33 Michele Crouch MD
== END 2019-05-21 14:59 | disposition home or self-care (01) ==
LOC: ED 09:11 → PCU 09:47
PROVIDERS: Family Medicine; Internal Medicine Cardiovascular Disease; Admitting Provider Internal Medicine; Emergency Provider Emergency Medicine; Referring Provider Internal Medicine Cardiovascular Disease; Visit Provider Internal Medicine
DX: I21.4 Non-ST elevation (NSTEMI) myocardial infarction (principal); I25.2 Old myocardial infarction; E78.5 Hyperlipidemia, unspecified; I27.21 Secondary pulmonary arterial hypertension; E86.0 Dehydration; E66.9 Obesity, unspecified; I25.5 Ischemic cardiomyopathy; I25.10 Atherosclerotic heart disease of native coronary artery without angina pectoris; E87.6 Hypokalemia; M19.90 Unspecified osteoarthritis, unspecified site; I10 Essential (primary) hypertension; G89.29 Other chronic pain; K21.9 Gastro-esophageal reflux disease without esophagitis; N40.0 Benign prostatic hyperplasia without lower urinary tract symptoms; Z68.37 Body mass index [BMI] 37.0-37.9, adult; Z71.3 Dietary counseling and surveillance; Z95.5 Presence of coronary angioplasty implant and graft; Z79.899 Other long term (current) drug therapy; Z79.82 Long term (current) use of aspirin; Z79.02 Long term (current) use of antithrombotics/antiplatelets; Z86.718 Personal history of other venous thrombosis and embolism
CPT/HCPCS: 36415; 71045; 80048; 80053; 80061; 83735; 84484; 85014; 85018; 85025; 85027; 85610; 85730; 92920; 93005; 93306; 93458; 96360; 96361; 96372; 99152; 99153; 99218; 99285; J7030; Q9957; Q9967; A4216; C1725; C1769; C1887; C1894; G0378; J7799

== ENCOUNTER 2019-05-26 08:00 | Outpatient (RCR) | payer MEDICARE, SELFPAY ==
[2019-03-25 14:01] VITALS: BMI 40.6
[2019-04-16 09:16] VITALS: BMI 39.5
--- NOTE | 2019-05-09 08:07 | CR.ITP_ITS ---
General Information - General Information Admitting Diagnosis: PCI with stenting - Education/Goals Cardiac Rehabilitation Goals: 1. Maintain the individual as the primary focus of care. 2. To improve the patient's quality of life. 3. Identification of cardiac risk factors and provide cardiac risk factor management. 4. Enhance the psychosocial status of the patient. 5. Reconditioning enough to allow the patient to resume customary activities. 6. Control symptoms of cardiac disease Scale for measuring improvement of personal goals: Enter appropriate number in Comments. 2 = Unchanged. 3 = Slightly Better. 4 = Moderate Improvement. 5 = Met my Goal Exercise - 30-day Assessment - Visit Date of Eval: 05/09/19 Session #:: 11 - Stages of Change Stages of Change:: Action - Physician Prescribed Exercise Modalities: Airdyne, NuStep Frequency (days/week): 3 Duration (Minutes):: 30-45 Intensity: 60-80% age predicted maximum heart rate reserve METs - Progression: 0.5-1.0 MET, RPE 11-14 WEEK: 5.5 Target Heart Rate:: 99-122 Max HR 107 - Hypertension Resting Blood Pressure:: 144/84 Peak Exercise Blood Pressure:: 148/82 - Intervention Home Exercise/Activity Goal:: Sitting Time <3 hrs/day - Education Goals:: Warm-up, RPE NIRU Scale, S/S, Safe Exercise, Self-Monitoring - Exercise Program Goals Exercise Program Goals: Aerobic Activity >30 min, B/P <130/80 Nutrition - 30-Day Assessment - Program Goals Nutrition Program Goals: LDL <70. Total Cholesterol <200. HDL >45. Triglycerides <150. HgbA1C <7%. BMI <25 - Visit Date of Eval: 05/09/19 - Stages of Change Stages of Change:: Action - Lipids Has the patient seen the dietitian?: No - Weight Management Weight:: 130.861 kg - Intervention Referral to dietitian:: No Referral to Diabetic Clinic:: No Will attend diet classes:: Yes - Education Attended class for:: Signs & symptoms of hypoglycemia, Signs & symptoms of hyperglycemia, Relate diabetes to coronary artery disease, Healthy eating Tobacco - Initial Assessment - Program Goals Tobacco Program Goals: Complete smoking cessation. Attend education classes. Improve Knowledge Test score - Learning Barriers Learning Barriers: Vision, Ready to Learn Tobacco - 30-Day Assessment - Program Goals Tobacco Program Goals: Complete smoking cessation. Attend education classes. Improve Knowledge Test score - Stage of Change Stages of Change:: Action - Learning Barriers Learning Barriers: Participates in education - Family Support Do you have family support?: Yes - Tobacco Use Tobacco Use: Non-smoker Do you use smokeless tobacco?: No - Intervention Smoking Cessation Referral:: No Individual Education/Counseling:: No Education Schedule Given:: Yes - Education Attended class for:: Treating Heart Disease, How The Heart Works, What it means to have Heart Disease, How Coronary Artery Disease is Diagnosed, Heart Procedures, What Heart Medications Do, Risk Factors & Modifications, Living an Active Life, Nutrition, Emotions & Heart Disease, Stress Management & Relaxation, Sleep Disorders & Heart Disease Psychosocial - Initial Assess - Target Goals Target Goals: Assess presence or absence of depression. Using a valid screening tool, maximizes coping skills. Positive support system - Psychosocial Test Tool Used:: HANDS Depression Questionnaire - Assistive Devices Fall Risk Assessed:: Yes - PT HAS A BAD KNEE Psychosocial - 30-Day Assess - Target Goals Target Goals: Assess presence or absence of depression. Using a valid screening tool, maximizes coping skills. Positive support system - Stages of Change Stages of Change:: Action - Psychosocial Test Tool Used:: HANDS Depression Questionnaire - Intervention PS - Interventions: Yes Attend Stress Management Classes, Yes Uses Stress Management Skills, No Referral to Mental Health, No Referral to [facility] Case Management, No Referral to Physician - Education Attended classes for:: Coping techniques, Signs & symptoms of depression, Stress management, Relaxation techniques - Assistive Devices Assistive Devices:: None Fall Risk Assessed:: Yes
[2019-05-09 08:10] VITALS: BP 144/84; BP 148/82
== END 2019-05-26 23:59 ==
LOC: CR 08:00
PROVIDERS: Referring Provider Internal Medicine Cardiovascular Disease; Visit Provider Internal Medicine Cardiovascular Disease
DX: Z95.5 Presence of coronary angioplasty implant and graft (principal)
CPT/HCPCS: 93798

== ENCOUNTER 2019-06-25 08:00 | Outpatient (RCR) | payer MEDICARE, SELFPAY ==
[2019-03-25 14:01] VITALS: BMI 40.6
[2019-05-19 10:00] VITALS: BMI 37.9
[2019-05-27 01:02] VITALS: BP 144/84; BP 148/82
--- NOTE | 2019-06-09 08:36 | PCM.CR.ITP ---
Exercise - 60-Day Assessment - Visit Date of Eval: 06/09/19 Session #:: 21 - MISSED 3 SEESIOS DUE TO CHEST PAIN AND ADMISSION. - Stages of Change Stages of Change:: Action - Physician Prescribed Exercise Modalities: Treadmill, Airdyne, NuStep Frequency (days/week): 3 Duration (Minutes):: 30-45 Intensity: 60-80% age predicted maximum heart rate reserve METs - Progression: 0.5-1.0 MET, RPE 11-14 WEEK: 5.5 NO INCREASE Target Heart Rate:: 99-122 - Hypertension Resting Blood Pressure:: 124/68 Peak Exercise Blood Pressure:: 152/78 Medication Changes:: Yes - Intervention Home Exercise/Activity Goal:: Moderate Exercise 30 min/day x 5 days/wk - Education Goals:: Warm-up, RPE NIRU Scale, S/S, Safe Exercise, Self-Monitoring - Exercise Program Goals Exercise Program Goals: Aerobic Activity >30 min Nutrition - 60-Day Assessment - Program Goals Nutrition Program Goals: LDL <70. Total Cholesterol <200. HDL >45. Triglycerides <150. HgbA1C <7%. BMI <25 - Visit Date of Eval: 06/09/19 - Stages of Change Stages of Change:: Action - Lipids Has the patient seen the dietitian?: No - Diabetes Diabetes:: No Insulin: No Non-Insulin Dependent?: No - Weight Management Weight:: 286 lb 8 oz - DECREASED 2 POUNDS - Intervention Referral to dietitian:: No Referral to Diabetic Clinic:: No Will attend diet classes:: Yes - Education Attended class for:: Healthy eating Tobacco - Initial Assessment - Program Goals Tobacco Program Goals: Complete smoking cessation. Attend education classes. Improve Knowledge Test score - Learning Barriers Learning Barriers: Vision, Ready to Learn Tobacco - 60-Day Assessment - Program Goals Tobacco Program Goals: Complete smoking cessation. Attend education classes. Improve Knowledge Test score - Stage of Change Stages of Change:: Action - Learning Barriers Learning Barriers: Participates in education - Family Support Do you have family support?: Yes - Tobacco Use Tobacco Use: Non-smoker Do you use smokeless tobacco?: No - Intervention Smoking Cessation Referral:: No Individual Education/Counseling:: No Education Schedule Given:: Yes - Education Attended class for:: How The Heart Works, What it means to have Heart Disease, How Coronary Artery Disease is Diagnosed, Heart Procedures, What Heart Medications Do, Risk Factors & Modifications, Living an Active Life, Nutrition Psychosocial - Initial Assess - Target Goals Target Goals: Assess presence or absence of depression. Using a valid screening tool, maximizes coping skills. Positive support system - Psychosocial Test Tool Used:: HANDS Depression Questionnaire - Assistive Devices Fall Risk Assessed:: Yes Psychosocial - 60-Day Assess - Target Goals Target Goals: Assess presence or absence of depression. Using a valid screening tool, maximizes coping skills. Positive support system - Stages of Change Stages of Change:: Action - Psychosocial Test Tool Used:: HANDS Depression Questionnaire - Intervention PS - Interventions: Yes Attend Stress Management Classes, Yes Uses Stress Management Skills, No Referral to Mental Health, No Referral to [facility] Case Management, No Referral to Physician - Education Attended classes for:: Coping techniques, Signs & symptoms of depression, Stress management, Relaxation techniques - Patient/Program Goal Preventative Medication(s):: Aspirin, MICHAEL inhibitor, Clopidogrel, Beta ro, Statin/lipid - Assistive Devices Assistive Devices:: None Fall Risk Assessed:: Yes Patient Health Questionnaire 60-Day Re-eval Assessment 1. Little interest or pleasure in doing things: Not at all 2. Feeling down, depressed, or hopeless: Not at all 3. Trouble falling or staying asleep, or sleeping too much: Several days 4. Feeling tired or having little energy: Several days 5. Poor appetite or overeating: Not at all 6. Feeling bad about yourself -- or that you are a failure or have let yourself or your family down: Not at all 7. Trouble concentrating on things, such as reading the newspaper or watching television: Not at all 8. Moving or speaking so slowly that other people could have noticed. Or the opposite - being so fidgety or restless that you have been moving around a lot more than usual: Not at all 9. Thoughts that you would be better off , or of hurting yourself in some way: Not at all Total Score: 2 Self-Efficacy 60-Day Re-eval Assessment We would like to know how confident you are in doing certain activities. Please select your confidence level for:: Select your confidence level for the following using the scale 1-10 where 1 is not at all confident and 10 is totally confident. Your score is the average of all 6 responses. Fatigue: How confident are you that you can keep the fatigue caused by your disease from interfering with the things you want to do? Select Number: 9 Physical Discomfort or Pain: How confident are you that you can keep the physical discomfort or pain of your disease from interfering with the things you want to do? Select Number: 9 Emotional Distress: How confident are you that you can keep the emotional distress caused by your disease from interfering with the things you want to do? Select Number: 9 Other Symptoms or Health Problems: How confident are you that you can keep other symptoms or health problems from interfering with the things you want to do? Select Number: 9 Different Tasks and Activities: How confident are you that you can do the different tasks and activities needed to manage your health condition so as to reduce your need to see a doctor? Select Number: 9 Medication: How confident are you that you can do things other than just taking medication to reduce how much your illness affects your everyday life? Select Number: 9 Total Score:: 9
[2019-06-09 08:40] VITALS: BP 124/68; BP 152/78
== END 2019-06-26 23:59 ==
LOC: CR 08:00
PROVIDERS: Referring Provider Internal Medicine Cardiovascular Disease; Visit Provider Internal Medicine Cardiovascular Disease
DX: Z95.5 Presence of coronary angioplasty implant and graft (principal)
CPT/HCPCS: 93798

== ENCOUNTER 2019-07-14 08:00 | Outpatient (RCR) | payer MEDICARE, SELFPAY ==
[2019-03-25 14:01] VITALS: BMI 40.6
[2019-06-20 08:48] VITALS: BMI 37.5
[2019-06-27 01:00] VITALS: BP 124/68; BP 152/78
--- NOTE | 2019-07-09 07:05 | CR.ITP_ITS ---
Exercise - 90-Day Assessment - Visit Date of Eval: 07/09/19 Session #:: 32 - MISSED 6 TOTAL SESSIONS - Stages of Change Stages of Change:: Action - Physician Prescribed Exercise Modalities: Treadmill, Airdyne, NuStep Frequency (days/week): 3 Duration (Minutes):: 30-45 Intensity: 60-80% age predicted maximum heart rate reserve METs - Progression: 0.5-1.0 MET, RPE 11-14 WEEK: 5.5 RPE 13 NO CHANGE IN METs, [place] FEELS AT MAXIMAL POTENTIAL Target Heart Rate:: 99-122 MAX HR 93 - Hypertension Resting Blood Pressure:: 124/78 Peak Exercise Blood Pressure:: 146/80 Medication Changes:: No - Intervention Home Exercise/Activity Goal:: Moderate Exercise 30 min/day x 5 days/wk - Education Goals:: Warm-up, RPE NIRU Scale, S/S, Safe Exercise, Self-Monitoring - Exercise Program Goals Exercise Program Goals: Aerobic Activity >30 min Nutrition - 90-Day Assessment - Program Goals Nutrition Program Goals: LDL <70. Total Cholesterol <200. HDL >45. Triglycerides <150. HgbA1C <7%. BMI <25 - Visit Date of Eval: 07/09/19 - Stages of Change Stages of Change:: Action - Lipids Has the patient seen the dietitian?: No - Diabetes Diabetes:: No - Weight Management Weight:: 285 lb 8 oz - UNCHANGED - Intervention Referral to dietitian:: No Referral to Diabetic Clinic:: No Will attend diet classes:: Yes - Education Attended class for:: Healthy eating Tobacco - Initial Assessment - Program Goals Tobacco Program Goals: Complete smoking cessation. Attend education classes. Improve Knowledge Test score - Learning Barriers Learning Barriers: Vision, Ready to Learn Tobacco - 90-Day Assessment - Program Goals Tobacco Program Goals: Complete smoking cessation. Attend education classes. Improve Knowledge Test score - Stage of Change Stages of Change:: Action - Learning Barriers Learning Barriers: Participates in education - Family Support Do you have family support?: Yes - Tobacco Use Tobacco Use: Non-smoker Do you use smokeless tobacco?: No - Intervention Smoking Cessation Referral:: No Individual Education/Counseling:: No Education Schedule Given:: Yes - Education Attended class for:: Treating Heart Disease, How The Heart Works, What it means to have Heart Disease, Heart Procedures, What Heart Medications Do, Risk Factors & Modifications, Living an Active Life, Nutrition, Emotions & Heart Disease, Stress Management & Relaxation, Sleep Disorders & Heart Disease Psychosocial - Initial Assess - Target Goals Target Goals: Assess presence or absence of depression. Using a valid screening tool, maximizes coping skills. Positive support system - Psychosocial Test Tool Used:: HANDS Depression Questionnaire - Assistive Devices Fall Risk Assessed:: Yes Psychosocial - 90-Day Assess - Target Goals Target Goals: Assess presence or absence of depression. Using a valid screening tool, maximizes coping skills. Positive support system - Stages of Change Stages of Change:: Action - Psychosocial Test Tool Used:: HANDS Depression Questionnaire - Intervention PS - Interventions: Yes Attend Stress Management Classes, Yes Uses Stress Management Skills, No Referral to Mental Health, No Referral to [facility] Case Management, No Referral to Physician - Education Attended classes for:: Coping techniques, Signs & symptoms of depression, Stress management, Relaxation techniques - Patient/Program Goal Preventative Medication(s):: Aspirin, MICHAEL inhibitor, Clopidogrel, Beta ro, Statin/lipid - Assistive Devices Assistive Devices:: None Fall Risk Assessed:: Yes Patient Health Questionnaire 90-Day Re-eval Assessment 1. Little interest or pleasure in doing things: Not at all 2. Feeling down, depressed, or hopeless: Not at all 3. Trouble falling or staying asleep, or sleeping too much: Several days 4. Feeling tired or having little energy: Not at all 5. Poor appetite or overeating: Not at all 6. Feeling bad about yourself -- or that you are a failure or have let yourself or your family down: Not at all 7. Trouble concentrating on things, such as reading the newspaper or watching television: Not at all 8. Moving or speaking so slowly that other people could have noticed. Or the opposite - being so fidgety or restless that you have been moving around a lot more than usual: Not at all 9. Thoughts that you would be better off , or of hurting yourself in some way: Not at all Total Score: 1 Self-Efficacy 90-Day Re-eval Assessment We would like to know how confident you are in doing certain activities. Please select your confidence level for:: Select your confidence level for the following using the scale 1-10 where 1 is not at all confident and 10 is totally confident. Your score is the average of all 6 responses. Fatigue: How confident are you that you can keep the fatigue caused by your disease from interfering with the things you want to do? Select Number: 9 Physical Discomfort or Pain: How confident are you that you can keep the physical discomfort or pain of your disease from interfering with the things you want to do? Select Number: 10 Emotional Distress: How confident are you that you can keep the emotional distress caused by your disease from interfering with the things you want to do? Select Number: 10 Other Symptoms or Health Problems: How confident are you that you can keep other symptoms or health problems from interfering with the things you want to do? Select Number: 9 Different Tasks and Activities: How confident are you that you can do the different tasks and activities needed to manage your health condition so as to reduce your need to see a doctor? Select Number: 9 Medication: How confident are you that you can do things other than just taking medication to reduce how much your illness affects your everyday life? Select Number: 10 Total Score:: 9
[2019-07-09 07:13] VITALS: BP 124/78; BP 146/80
== END 2019-07-26 23:59 ==
LOC: CR 08:00
PROVIDERS: PCP Family Medicine; Referring Provider Internal Medicine Cardiovascular Disease; Visit Provider Internal Medicine Cardiovascular Disease
DX: Z95.5 Presence of coronary angioplasty implant and graft (principal)
CPT/HCPCS: 93798

== ENCOUNTER → 2020-02-10 08:24 | Outpatient (CLI) | payer MEDICARE, SELFPAY ==
[2019-03-25 14:01] VITALS: BMI 40.6
[2019-12-15 10:21] VITALS: BMI 37.5
[2020-02-10 10:02] LABS: AST(SGOT) 18 U/L (15-37); Alanine Aminotransfer ALT/SGPT 20 U/L (16-61); Albumin, Serum 3.7 g/dL (3.2-5.0); Alkaline Phosphatase 100 U/L (45-117); Bilirubin, Direct 0.25 mg/dL (0.00-0.30); Cholesterol 139 mg/dL (200); Globulin 3.7 g/dL (2.2-4.2); High Density Lipoprotein 38 mg/dL; Protein, Total 7.4 g/dL (6.4-8.2); Triglycerides 128 mg/dL; Very Low Density Lipoprotein 26 mg/dL (5-40)
== END ==
PROVIDERS: PCP Family Medicine; Referring Provider Internal Medicine Cardiovascular Disease; Visit Provider Internal Medicine Cardiovascular Disease
DX: E78.00 Pure hypercholesterolemia, unspecified (principal)
CPT/HCPCS: 36415; 80061; 80076

== ENCOUNTER → 2020-02-24 06:24 | Outpatient (CLI) | payer MEDICARE, SELFPAY ==
[2019-03-25 14:01] VITALS: BMI 40.6
[2019-12-15 10:21] VITALS: BMI 37.5
--- NOTE | 2020-02-24 06:27 | ECHOCS_ITS ---
Reason For Study: PREOPERATIVE EXAM, CAD/ASHD Procedure This was a 2D Doppler, Color Flow transthoracic echocardiogram. The study was technically difficult. Due to body habitus. Contrast injection was performed. Exam performed in department. Left Ventricle Normal LV size. Mild concentric left ventricular hypertrophy. Mild segmental systolic dysfunction (see wall motion). The estimated ejection fraction is 50 %. Diastolic function is indeterminate. Mid-Anterior : Hypokinetic. Mid-inferoseptal : Hypokinetic. Mid-anteroseptal : Hypokinetic. Anterior [place] : Akinetic. Lateral [place] : Akinetic. Septal [place] : Akinetic. Right Ventricle Normal RV size. Normal systolic function. Atria The left atrium is mildly enlarged. Normal right atrium. No doppler evidence for ASD. Mitral Valve There is no mitral annular calcification. Normal mitral valve. Trivial mitral valve insufficiency. Tricuspid Valve Normal tricuspid valve. Trivial tricuspid valve insufficiency. Right ventricular systolic pressure estimated to be 23 mmHg. Aortic Valve Trisinus/trileaflet aortic valve. Mild focal aortic valve thickening. Trivial aortic valve insufficiency. Pulmonic Valve The pulmonic valve is not well visualized. Great Vessels Mildly dilated aortic root. Pericardium/Pleural No pericardial effusion. Medication Diluted definity 3.0ml given slow IV push to enhance endocardial definition. MMode/2D Measurements & Calculations LVIDd: 4.9 cm IVSd: 1.3 cm Ao root diam: 4.1 cm LVIDs: 3.5 cm LVPWd: 1.3 cm RVDd: 3.6 cm FS: 28.0 % LAV(MOD-bp): 81.7 ml LA A4 area: 23.6 cm2 LA dimension(2D): 5.0 cm LAV(MOD-bp) Indexed: 32.2 ml/m2 LAV(MOD-sp2): 79.1 ml LAV(MOD-sp4): 79.8 ml RA A4 area: 21.0 cm2 Time Measurements MV dec time: 0.21 sec Doppler Measurements & Calculations MV E max pradeep: 62.2 cm/sec Lat Peak E' Pradeep: 4.5 cm/sec Med Peak E' Pradeep: 5.7 cm/sec MV A max pradeep: 101.6 cm/sec E/E' lat: 14.0 E/E' med: 10.9 MV E/A: 0.61 Ao V2 max: 103.0 cm/sec LV V1 max: 88.4 cm/sec PA V2 max: 73.8 cm/sec Ao max P.5 mmHg LV V1 max P.1 mmHg TR max pradeep: 224.0 cm/sec TR max P.1 mmHg Interpretation Summary The study was technically difficult. Contrast injection was performed. Mild segmental systolic dysfunction (see wall motion). The estimated ejection fraction is 50 %. Mild concentric left ventricular hypertrophy. The left atrium is mildly enlarged. Trivial mitral valve insufficiency. Trivial tricuspid valve insufficiency. Mild focal aortic valve thickening. Trivial aortic valve insufficiency. Mildly dilated aortic root. Right ventricular systolic pressure estimated to be 23 mmHg. Diastolic function is indeterminate. Ordering Physician: Michele Crouch Referring Physician: Maxim Bright Performed By: Lisseth Perdomo, CECILIA, RVT
--- NOTE | 2020-02-24 15:52 | STRESSREP ---
Stress Test Report Date: 02-24-2020 Procedure: Pharmacologic stress nuclear imaging study Indications: CAD; status post AR; status post PCI; preoperative cardiovascular evaluation Consent: Per the patient Procedure: The patient underwent pharmacologic (Regadenoson) evaluation with a peak heart rate of 93 beats per minute (61 %predicted maximal heart rate) and a peak blood pressure of 142/80 mmHg. The baseline ECG demonstrated normal sinus rhythm; anterior AR of indeterminate age cannot be excluded. The peak pharmacologic ECG demonstrated no obvious ECG changes. There were no cardiac dysrhythmias pretest, during pharmacologic infusion, or recovery. There was no complaint of chest discomfort during pharmacologic infusion or recovery. The examination was discontinued secondary to completion of protocol. Impression: 1. Pharmacologic (Regadenoson) evaluation 2. Peak pharmacologic ECG with no obvious ECG changes. 3. There were no cardiac dysrhythmias pretest, during pharmacologic infusion, or recovery. 4. Nuclear images pending Myocardial perfusion imaging study: Technique: The patient was injected with 14.6 millicuries of technetium 99m Cardiolite and subsequently rest SPECT Cardiolite nuclear imaging was obtained in the horizontal long, vertical long, and short axis views. The patient underwent pharmacologic (Regadenoson) evaluation with a peak heart rate of 93 beats per minute (61 % percent predicted maximal heart rate) and a peak blood pressure of 142/80 mmHg. The patient was injected with 44.8 millicuries of technetium 99m Cardiolite and subsequently stress SPECT Cardiolite nuclear imaging was obtained in the horizontal long, vertical long, and short axis views. A gated Cardiolite study at peak stress was obtained. Interpretation: Rest and stress SPECT Cardiolite nuclear imaging status post realignment, normalization, and attenuation correction demonstrate at rest area of diminished tracer uptake in portions of the septal apical segments/lateral apical segments and status post stress areas of diminished tracer uptake in portions of the distal anterior, distal anteroseptal, anterior apical, as well as the septal apical and lateral apical segments. There is diminished end systolic thickening and brightening in the aforementioned areas. The gated Cardiolite study demonstrates diminished myocardial thickening and inward wall motion. The reported LVEF is 49 %. Impression: 1. Rest and stress SPECT current nuclear imaging demonstrate myocardial perfusion changes appearing compatible with an area of previous myocardial injury/infarction involving portions of the septal apical/lateral apical segments and post-rest myocardial perfusion changes appearing compatible with areas of ekta-infarct related myocardial ischemia involving portions of the distal anterior, distal anteroseptal, and anterior apical segments. 2. The gated Cardiolite study reports an LVEF of 49 %. This note was generated with [employer] software. It may contain incorrect words, spelling, and punctuation that were not noted in checking the note before signing.
== END ==
PROVIDERS: PCP Family Medicine; Referring Provider Internal Medicine Cardiovascular Disease; Visit Provider Internal Medicine Cardiovascular Disease
DX: Z01.810 Encounter for preprocedural cardiovascular examination (principal); I25.118 Atherosclerotic heart disease of native coronary artery with other forms of angina pectoris; I25.5 Ischemic cardiomyopathy; I27.21 Secondary pulmonary arterial hypertension; I25.2 Old myocardial infarction; I10 Essential (primary) hypertension; Z95.5 Presence of coronary angioplasty implant and graft
CPT/HCPCS: 78452; 93017; 93306; A9500; Q9957; A4216; C8929; J2785

== ENCOUNTER 2020-03-09 08:00 | Day surgery (SDC) | payer MEDICARE, SELFPAY ==
[2019-03-25 14:01] VITALS: BMI 40.6
[2019-12-15 10:21] VITALS: BMI 37.5
[2020-03-02 16:28] LABS: Hematocrit 49.3 % (40-54); Hemoglobin 16.3 g/dL (13.0-16.5); Mean Corp Hgb Conc 33.1 g/dL (32-36); Mean Corpuscular Hgb 29.4 pg (27.0-32.0); Mean Corpuscular Volume 88.8 fL (80-94); Mean Platelet Vol. 10.2 fl (6.2-12.0); Platelet Count 180 K/mm3 (150-450); RBC Distribution Width CV 14.4 % (11.6-14.6); RBC Distribution Width SD 45.8 fl (35.1-43.9); Red Blood Count 5.55 M/mm3 (4.6-6.2)
[2020-03-02 16:35] LABS: International Normalized Ratio 1.1; Prothrombin Time (Protime)PT. 13.6 SECONDS (11.7-14.9)
[2020-03-02 16:36] LABS: Partial Thromboplast Time 27.5 Seconds (24.1-36.2)
[2020-03-02 16:59] LABS: Anion Gap 5 (5-15); BUN 28 mg/dL (7-18); BUN/Creat Ratio 19.4 RATIO (10-20); Calcium,Total 8.7 mg/dL (8.5-10.1); Chloride 109 mmol/L (98-107); Creatinine, Serum 1.44 mg/dL (0.70-1.30); EST Glomerular Filtration Rate 52 mL/min (>60); Est Glom Filt Rate - Afr Amer 62 mL/min (>60); Glucose 107 mg/dL (74-106); PSA,Total - Annual Screen 1.59 ng/mL (0.00-4.00); Sodium Level 140 mmol/L (136-145)
--- NOTE | 2020-03-04 15:02 | PCM.HP.BLA ---
<Tahir Gibbons - Last Filed: 03/09/20 08:20> History and Physical Date of Admission: 03/09/20 HPI History of Present Illness Details: SHERI VUONG, is a 69 M who presents to the research laboratory technician today for a left heart catheterization after an abnormal stress test. He has a history of underlying CAD, non-ST segment elevation WA, PCI (LAD PTCA/JANNETTE and diagonal branch PTCA), ST segment elevated myocardial infarction with thrombectomy and drug-eluting stent placement to LAD on 03/25/2019, hyperlipidemia, hypertension, and a history of GERD. Patient presented to [facility] Emergency Department 03/25/2019 with chest pain. His EKG showed anterior ST elevation WA. He was taken to heart catheterization lab in which she was found to have LAD stent thrombosis with 100% occlusion. He underwent a thrombectomy and drug-eluting stent placement to his LAD. His recovery was complicated by acute kidney injury and hypokalemia. He did have a brief episode of nonsustained wide-complex tachycardia that was attributed to reperfusion dysrhythmia. His Plavix was switched to Brilinta. His echocardiogram showed ejection fraction of 45% He presented to [facility] on May 19, 2019 with a non-ST myocardial infarction. He did undergo a heart catheterization. He underwent an successful PCI to second septal parts counter representative due to not being able to pass the angioplasty balloon through the LAD stent into the septal parts counter representative. Patient is expected undergo knee replacement surgery with Dr. Roberts on 03/23/2020. As a preoperative evaluation, he underwent echocardiogram and stress test. His echocardiogram on 02/24/2020 showed ejection fraction of 50%, mild segmental systolic dysfunction (see wall motion), and mild concentric LVH. His nuclear stress test on 02/24/2020 showed ekta-infarct related myocardial ischemia involving portions of the distal anterior, distal anteroseptal, and anterior apical segments. Thus, he presents today for heart catheterization to evaluate CAD in the setting of an abnormal stress test. He states at home he has been feeling well overall. He denies any chest discomfort. He has not had use nitroglycerin sublingual. There has been no ongoing issues of classic orthopnea or PND suspicious for CHF/pulmonary edema. There has been no evidence of near syncope or syncope. 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 Accompanied by: None Is patient in pain?: No Allergies No Known Allergies Allergy (Verified 09/16/19 10:59) Medications See EMR [facility] Social History (Updated 09/16/19 @ 13:06 by MC Marie) Smoking Status: Never smoker alcohol intake: never substance use type: does not use ROS Const Const: Negative for fatigue, weakness, body ache, fever(s) or chills ENT ENT: Negative for dizziness Cardio Chest Pain: No Palpitations: No Edema: Bilateral Muscle aches with walking: None Resp Respiratory: Negative for SOB with activity, SOB at rest, SOB orthopnea\SOB lying down or paroxysmal nocturnal dyspnea GI GI: Negative nausea, vomiting blood/hematemesis, bright, red blood in stools or black,tarry stools : Negative for hematuria or frequent nighttime urination/ nocturia Musc Musc: Negative for muscle aches/ myalgia Skin Skin: Negative non-healing lesions or rash Neuro Neuro: Negative for dizziness, lightheadedness, near syncope, syncope, orthostatic symptoms or weakness Endo Endo: Negative for fatigue Allergy Allergy/Immunology: Negative for rash Cardiology Exam Const Appearance: cooperative, healthy appearing, comfortable and no acute distress Nutritional Appearance: well nourished and obese Orientation: alert, awake and oriented x3 Head Head: normal to inspection Ears: hearing grossly normal bilaterally Nose: external nose normal Face and Sinus: face symmetric Mouth: oral mucosae normal Eyes General: appearance normal, both eyes and all related structures Eyelids: eyelids normal EOM: EOM intact bilaterally Neck Neck: normal visual inspection and no JVD Carotids: normal carotid upstroke Chest Chest inspection: normal inspection of the chest, symmetric chest movement and normal respiratory effort; negative cough Auscultation: Bilateral: Clear to Auscultation Cardio Palpation: normal PMI Rate: regular rate Rhythm: regular rhythm Heart sounds: S1 normal and S2 normal; negative rub, gallop or murmur GI GI: normal to inspection and obese Neuro General: alert, awake, oriented x3 and CN's II-XI intact bilaterally Skin Skin: no rashes or lesions noted Extremities Pulses: Normal: Right Posterior Tibial Pulse, Left Posterior Tibial Pulse, Right Radial Pulse, Left Radial Pulse Lower Extremity Edema: +1: Bilateral Psych Psychological: normal affect Assessment & Plan 1. Atherosclerosis of algaaciq coronary artery of algaaciq heart without angina pectoris I25.10 ALT-BUP-Ltes LAD w/ 3.0 x 20 mm Promus Synergy Stent and JANNETTE-Mid LAD w/ 2.5 x 32 mm Promus Synergy Stent w/ POBA - Prox-Mid D2 12/27/2016; thrombectomy and drug-eluting stent to mid LAD on 03/25/2019; unsuccessful PCI to 2nd septal parts counter representative on 05/22/2019; Plan Due to patient's abnormal stress test, he will proceed with left heart catheterization to evaluate further. Based on results, further recommendation will be made. 2. Presence of stent in coronary artery Z95.5 [id number] LAD w/ 3.0 x 20 mm Promus Synergy Stent and JANNETTE-Mid LAD w/ 2.5 x 32 mm Promus Synergy Stent w/ POBA - Prox-Mid D2 12/27/2016; PTCA/JANNETTE to LAD with Thrombectomy 03/25/19; Unsuccessful PCI of 2nd septal parts counter representative 05/20/19; Plan He continue current medical therapy. He will continue risk factor and lifestyle modification. 3. Ischemic cardiomyopathy I25.5 45% EF on echocardiogram 03/26/2019 Plan His most recent echocardiogram from 02/24/2020 showed low normal ejection fraction of 50%. He denies any symptoms of congestive heart failure. He does not appear to be in a fluid volume load state. He will continue current medical therapy which includes metoprolol, amlodipine-valsartan, and HCTZ. We will continue to monitor. 4. Essential hypertension I10 Plan Patient's blood pressure is well-controlled. We will continue to monitor. We will not make any medication regimen changes. 5. Pure hypercholesterolemia E78.00 Plan Lipid panel from 02/10/2020 showed cholesterol: 139, HDL: 38, LDL: 75, and triglycerides: 128. He will continue current statin medication. Plan Detail Additional Comments Thank you for allowing us to participate in the patients plan of care, if you have any questions please do not hesitate to call. This note was generated using a voice recognition system and there may be incorrect words, spelling or punctuation that were not noted when reviewing the office note prior to saving. Supplemental Info Supplemental Information Heart catheterization from 03/25/2019: CONCLUSIONS Elevated Left Ventricular End Diastolic Pressure RECOMMENDATIONS Risk factor modification Medical therapy Referred for immediate PCI (Of Note: Subsequent attempt at PCI of the SP #[address] Addison. The attempt was unsuccessful secondary to not being able to pass the angioplasty balloon through the LAD stent into the septal parts counter representative) CORONARY ANGIOGRAPHY DOMINANCE: Right Dominant LEFT HEART ASSESSMENT Left Ventricular Ejection Fraction: by LV Gram 45 % Anterior Hypokinesis. Apical Hypokinesis Elevated Left Ventricular End Diastolic Pressure LVEDP: 32 mmHg LEFT MAIN: Angiographically normal LEFT ANTERIOR DESCENDING ARTERY: PROX LAD: eccetric: 10 - 25 % Stenosis MID LAD: Previously placed stent is patent, Mild luminal irregularities DIAGONAL 1: Proximal - Mild luminal irregularities DIAGONAL 2: Proximal - Mild luminal irregularities DIAGONAL 3: Ostial - is occluded and fills late and partially from left to left collateral flow SEPTAL: #2: ostial 99% stenosis CIRCUMFLEX ARTERY: OM 1: Proximal - eccentric: 25 % Stenosis RIGHT CORONARY ARTERY: Mild luminal irregularities VALVE FINDINGS: Normal Aortic Valve function Normal Mitral Valve function AORTIC ROOT: Angiographically normal Cardiac intervention from 05/22/2019: CONCLUSIONS Unsuccessful PCI of the 2nd septal parts counter representative. RECOMMENDATIONS Maximal medical therapy for CAD/Angina Echocardiogram from 03/26/2018: Interpretation Summary The study was technically difficult. Contrast injection was performed. Mild segmental systolic dysfunction (see wall motion). The estimated ejection fraction is 45 %. Moderate concentric left ventricular hypertrophy. Trivial mitral valve insufficiency. Trivial tricuspid valve insufficiency. Mild focal aortic valve calcification. Trivial aortic valve insufficiency. Trivial pulmonic valve insufficiency. Trivial pericardial effusion. There are no echocardiographic indications of cardiac tamponade. Unable to estimate RV systolic pressure/pulmonary artery pressure due to technically difficult study. Diastolic function is indeterminate. Echocardiogram for 05/20/2019: Interpretation Summary The study was technically difficult. Mild segmental systolic dysfunction (see wall motion). The estimated ejection fraction is 50 %. Mild concentric left ventricular hypertrophy. Trivial mitral valve insufficiency. Trivial tricuspid valve insufficiency. Trivial aortic valve insufficiency. Mildly dilated aortic root. Right ventricular systolic pressure estimated to be 21 mmHg. Diastolic function is indeterminate. Echocardiogram from 02/24/2020: Interpretation Summary The study was technically difficult. Contrast injection was performed. Mild segmental systolic dysfunction (see wall motion). The estimated ejection fraction is 50 %. Mild concentric left ventricular hypertrophy. The left atrium is mildly enlarged. Trivial mitral valve insufficiency. Trivial tricuspid valve insufficiency. Mild focal aortic valve thickening. Trivial aortic valve insufficiency. Mildly dilated aortic root. Right ventricular systolic pressure estimated to be 23 mmHg. Diastolic function is indeterminate. Stress Test Report Date: 02-24-2020 Procedure: Pharmacologic stress nuclear imaging study Indications: CAD; status post WA; status post PCI; preoperative cardiovascular evaluation Consent: Per the patient Procedure: The patient underwent pharmacologic (Regadenoson) evaluation with a peak heart rate of 93 beats per minute (61 %predicted maximal heart rate) and a peak blood pressure of 142/80 mmHg. The baseline ECG demonstrated normal sinus rhythm; anterior WA of indeterminate age cannot be excluded. The peak pharmacologic ECG demonstrated no obvious ECG changes. There were no cardiac dysrhythmias pretest, during pharmacologic infusion, or recovery. There was no complaint of chest discomfort during pharmacologic infusion or recovery. The examination was discontinued secondary to completion of protocol. Impression: 1. Pharmacologic (Regadenoson) evaluation 2. Peak pharmacologic ECG with no obvious ECG changes. 3. There were no cardiac dysrhythmias pretest, during pharmacologic infusion, or recovery. 4. Nuclear images pending Myocardial perfusion imaging study: Technique: The patient was injected with 14.6 millicuries of technetium 99m Cardiolite and subsequently rest SPECT Cardiolite nuclear imaging was obtained in the horizontal long, vertical long, and short axis views. The patient underwent pharmacologic (Regadenoson) evaluation with a peak heart rate of 93 beats per minute (61 % percent predicted maximal heart rate) and a peak blood pressure of 142/80 mmHg. The patient was injected with 44.8 millicuries of technetium 99m Cardiolite and subsequently stress SPECT Cardiolite nuclear imaging was obtained in the horizontal long, vertical long, and short axis views. A gated Cardiolite study at peak stress was obtained. Interpretation: Rest and stress SPECT Cardiolite nuclear imaging status post realignment, normalization, and attenuation correction demonstrate at rest area of diminished tracer uptake in portions of the septal apical segments/lateral apical segments and status post stress areas of diminished tracer uptake in portions of the distal anterior, distal anteroseptal, anterior apical, as well as the septal apical and lateral apical segments. There is diminished end systolic thickening and brightening in the aforementioned areas. The gated Cardiolite study demonstrates diminished myocardial thickening and inward wall motion. The reported LVEF is 49 %. Impression: 1. Rest and stress SPECT current nuclear imaging demonstrate myocardial perfusion changes appearing compatible with an area of previous myocardial injury/infarction involving portions of the septal apical/lateral apical segments and post-rest myocardial perfusion changes appearing compatible with areas of ekta-infarct related myocardial ischemia involving portions of the distal anterior, distal anteroseptal, and anterior apical segments. 2. The gated Cardiolite study reports an LVEF of 49 %. Procedure Criteria Procedure Type: Elective COVID Risk Discussion: The surgeon/proceduralist and patient have discussed in detail the risk of exposure to and/or potential harm posed by the COVID-19 virus with having a surgery/procedure at this time versus the risk of delaying the surgery/procedure. It is not possible to know either the risk of delaying the surgery or procedure or chance of getting an infection with perfect accuracy, but a joint decision was made between the patient and the surgeon/proceduralist to proceed at this time with the scheduled surgery/procedure as indicated on the consent form. <Michele Crouch - Last Filed: 03/09/20 09:22> Problem List (1) Abnormal stress test Status: Acute (2) CAD (coronary artery disease) Status: Chronic Qualifiers: Coronary Disease-Associated Artery/Lesion type: algaaciq artery [place] vs. transplanted heart: algaaciq heart (3) Presence of stent in coronary artery Status: Chronic Comment: [id number] LAD w/ 3.0 x 20 mm Promus Synergy Stent and JANNETTE-Mid LAD w/ 2.5 x 32 mm Promus Synergy Stent w/ POBA - Prox-Mid D2 12/27/2016; PTCA/JANNETTE to LAD with Thrombectomy 03/25/19; Unsuccessful PCI of 2nd septal parts counter representative 05/20/19; (4) Ischemic cardiomyopathy Status: Chronic Comment: 45% EF on echocardiogram 03/26/2019 (5) Pure hypercholesterolemia Status: Chronic (6) Essential hypertension Status: Chronic (7) Preop cardiovascular exam Status: Acute History and Physical Addendum: Date: 03-09-2020 I have re-examined the patient. There are no clinical changes since date of exam.
[2020-03-08 10:20] VITALS: BMI 37.5
--- NOTE | 2020-03-08 13:31 | RAD_ITS ---
STUDY: X-RAY CHEST REASON FOR EXAM: Male, 69 years old. Abnormal stress test. Shortness of breath. TECHNIQUE: PA and lateral views of the chest. COMPARISON: May 19, 2019. FINDINGS: The lungs are clear and expanded. Persistent mild elevation of the right hemidiaphragm. There is no demonstrated pleural abnormality. Normal size heart. Normal mediastinum and yemi. Normal visualized pulmonary arteries. There is atherosclerotic calcification of the aortic arch with tortuosity. There are diffuse degenerative changes of the visualized thoracic spine. There is degenerative osteoarthritis of the bilateral shoulders. There is no demonstrated abnormality of the visualized soft tissue structures of the upper abdomen. RAD/Chest PA and Lateral IMPRESSION: Degenerative changes, as described above. No demonstrated acute cardiopulmonary process. Electronically Signed: Josh Malik DO at 23:46 EDT Tel [phone], Service support ,
--- NOTE | 2020-03-09 07:57 | HP.PCM_ITS ---
Problem List (1) Abnormal stress test Status: Acute (2) CAD (coronary artery disease) Status: Chronic Qualifiers: Coronary Disease-Associated Artery/Lesion type: [place] artery [place] vs. transplanted heart: [place] heart (3) Presence of stent in coronary artery Status: Chronic Comment: MXH-DGW-Fitd LAD w/ 3.0 x 20 mm Promus Synergy Stent and JANNETTE-Mid LAD w/ 2.5 x 32 mm Promus Synergy Stent w/ POBA - Prox-Mid D2 12/27/2016; PTCA/JANNETTE to LAD with Thrombectomy 03/25/19; Unsuccessful PCI of 2nd septal wash rack operator 05/20/19; (4) Ischemic cardiomyopathy Status: Chronic Comment: 45% EF on echocardiogram 03/26/2019 (5) Pure hypercholesterolemia Status: Chronic (6) Essential hypertension Status: Chronic (7) Preop cardiovascular exam Status: Acute History and Physical Date of Admission: 03/09/20 [facility] Medical Records Department [address] [place] [address] History and Physical 03/04/20 1502 MR#: [id number] Acct: [id number] Name: SHERI VUONG Rep #:[id number] : 1950 69 From: Tahir Gibbons ANESTHESIA TECHPaula C PCP: Dr. Maxim Vuong MD Status:PRE [facility] Location: [facility] History and Physical Date of Admission: 03/09/20 HPI History of Present Illness Details: SHERI VUONG, is a 69 M who presents to the mini lab operator today for a left heart catheterization after an abnormal stress test. He has a history of underlying CAD, non-ST segment elevation LA, PCI (LAD PTCA/JANNETTE and diagonal branch PTCA), ST segment elevated myocardial infarction with thrombectomy and drug-eluting stent placement to LAD on 03/25/2019, hyperlipidemia, hypertension, and a history of GERD. Patient presented to [facility] Emergency Department 03/25/2019 with chest pain. His EKG showed anterior ST elevation LA. He was taken to heart catheterization lab in which she was found to have LAD stent thrombosis with 100% occlusion. He underwent a thrombectomy and drug-eluting stent placement to his LAD. His recovery was complicated by acute kidney injury and hypokalemia. He did have a brief episode of nonsustained wide-complex tachycardia that was attributed to reperfusion dysrhythmia. His Plavix was switched to Brilinta. His echocardiogram showed ejection fraction of 45% He presented to [facility] on May 19, 2019 with a non-ST myocardial infarction. He did undergo a heart catheterization. He underwent an successful PCI to second septal wash rack operator due to not being able to pass the angioplasty balloon through the LAD stent into the septal wash rack operator. Patient is expected undergo knee replacement surgery with Dr. Roberts on 03/23/2020. As a preoperative evaluation he underwent echocardiogram and stress test. His echocardiogram on 02/24/2020 showed ejection fraction of 50%, mild segmental systolic dysfunction (see wall motion), and mild concentric LVH. His nuclear stress test on 02/24/2020 showed ekta-infarct related myocardial ischemia involving portions of the distal anterior, distal anteroseptal, and anterior apical segments. Thus, he presents today for heart catheterization to evaluate CAD in the setting of an abnormal stress test. He states at home he has been feeling well overall. He denies any chest discomfort. He has not had use nitroglycerin sublingual. There has been no ongoing issues of classic orthopnea or PND suspicious for CHF/pulmonary edema. There has been no evidence of near syncope or syncope. 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 Required: No Accompanied by: None Is patient in pain?: No Allergies No Known Allergies Allergy (Verified 09/16/19 10:59) Medications See EMR [facility] Social History (Updated 09/16/19 @ 13:06 by LEODAN MarieC) Smoking Status: Never smoker alcohol intake: never substance use type: does not use ROS Const Const: Negative for fatigue, weakness, body ache, fever(s) or chills ENT ENT: Negative for dizziness Cardio Chest Pain: No Palpitations: No Edema: Bilateral Muscle aches with walking: None Resp Respiratory: Negative for SOB with activity, SOB at rest, SOB orthopnea\SOB lying down or paroxysmal nocturnal dyspnea GI GI: Negative nausea, vomiting blood/hematemesis, bright, red blood in stools or black,tarry stools : Negative for hematuria or frequent nighttime urination/ nocturia Musc Musc: Negative for muscle aches/ myalgia Skin Skin: Negative non-healing lesions or rash Neuro Neuro: Negative for dizziness, lightheadedness, near syncope, syncope, orthostatic symptoms or weakness Endo Endo: Negative for fatigue Allergy Allergy/Immunology: Negative for rash Cardiology Exam Const Appearance: cooperative, healthy appearing, comfortable and no acute distress Nutritional Appearance: well nourished and obese Orientation: alert, awake and oriented x3 Head Head: normal to inspection Ears: hearing grossly normal bilaterally Nose: external nose normal Face and Sinus: face symmetric Mouth: oral mucosae normal Eyes General: appearance normal, both eyes and all related structures Eyelids: eyelids normal EOM: EOM intact bilaterally Neck Neck: normal visual inspection and no JVD Carotids: normal carotid upstroke Chest Chest inspection: normal inspection of the chest, symmetric chest movement and normal respiratory effort; negative cough Auscultation: Bilateral: Clear to Auscultation Cardio Palpation: normal PMI Rate: regular rate Rhythm: regular rhythm Heart sounds: S1 normal and S2 normal; negative rub, gallop or murmur GI GI: normal to inspection and obese Neuro General: alert, awake, oriented x3 and CN's II-XI intact bilaterally Skin Skin: no rashes or lesions noted Extremities Pulses: Normal: Right Posterior Tibial Pulse, Left Posterior Tibial Pulse, Right Radial Pulse, Left Radial Pulse Lower Extremity Edema: +1: Bilateral Psych Psychological: normal affect Assessment & Plan 1. Atherosclerosis of [place] coronary artery of [place] heart without angina pectoris I25.10 DDF-SFC-Uhvo LAD w/ 3.0 x 20 mm Promus Synergy Stent and JANNETTE-Mid LAD w/ 2.5 x 32 mm Promus Synergy Stent w/ POBA - Prox-Mid D2 12/27/2016; thrombectomy and drug-eluting stent to mid LAD on 03/25/2019; unsuccessful PCI to 2nd septal wash rack operator on 05/22/2019; Plan Due to patient's abnormal stress test, he will proceed with left heart catheterization to evaluate further. Based on results, further recommendation will be made. 2. Presence of stent in coronary artery Z95.5 WYV-NDY-Mndp LAD w/ 3.0 x 20 mm Promus Synergy Stent and JANNETTE-Mid LAD w/ 2.5 x 32 mm Promus Synergy Stent w/ POBA - Prox-Mid D2 12/27/2016; PTCA/JANNETTE to LAD with Thrombectomy 03/25/19; Unsuccessful PCI of 2nd septal wash rack operator 05/20/19; Plan He continue current medical therapy. He will continue risk factor and lifestyle modification. 3. Ischemic cardiomyopathy I25.5 45% EF on echocardiogram 03/26/2019 Plan His most recent echocardiogram from 02/24/2020 showed low normal ejection fraction of 50%. He denies any symptoms of congestive heart failure. He does not appear to be in a fluid volume load state. He will continue current medical therapy which includes metoprolol, amlodipine-valsartan, and HCTZ. We will continue to monitor. 4. Essential hypertension I10 Plan Patient's blood pressure is well-controlled. We will continue to monitor. We will not make any medication regimen changes. 5. Pure hypercholesterolemia E78.00 Plan Lipid panel from 02/10/2020 showed cholesterol: 139, HDL: 38, LDL: 75, and triglycerides: 128. He will continue current statin medication. Plan Detail Additional Comments Thank you for allowing us to participate in the patients plan of care, if you have any questions please do not hesitate to call. This note was generated using a voice recognition system and there may be incorrect words, spelling or punctuation that were not noted when reviewing the office note prior to saving. Supplemental Info Supplemental Information Heart catheterization from 03/25/2019: CONCLUSIONS Elevated Left Ventricular End Diastolic Pressure RECOMMENDATIONS Risk factor modification Medical therapy Referred for immediate PCI (Of Note: Subsequent attempt at PCI of the SP #[address] Addison. The attempt was unsuccessful secondary to not being able to pass the angioplasty balloon through the LAD stent into the septal wash rack operator) CORONARY ANGIOGRAPHY DOMINANCE: Right Dominant LEFT HEART ASSESSMENT Left Ventricular Ejection Fraction: by LV Gram 45 % Anterior Hypokinesis. Apical Hypokinesis Elevated Left Ventricular End Diastolic Pressure LVEDP: 32 mmHg LEFT MAIN: Angiographically normal LEFT ANTERIOR DESCENDING ARTERY: PROX LAD: eccetric: 10 - 25 % Stenosis MID LAD: Previously placed stent is patent, Mild luminal irregularities DIAGONAL 1: Proximal - Mild luminal irregularities DIAGONAL 2: Proximal - Mild luminal irregularities DIAGONAL 3: Ostial - is occluded and fills late and partially from left to left collateral flow SEPTAL: #2: ostial 99% stenosis CIRCUMFLEX ARTERY: OM 1: Proximal - eccentric: 25 % Stenosis RIGHT CORONARY ARTERY: Mild luminal irregularities VALVE FINDINGS: Normal Aortic Valve function Normal Mitral Valve function AORTIC ROOT: Angiographically normal Cardiac intervention from 05/22/2019: CONCLUSIONS Unsuccessful PCI of the 2nd septal wash rack operator. RECOMMENDATIONS Maximal medical therapy for CAD/Angina Echocardiogram from 03/26/2018: Interpretation Summary The study was technically difficult. Contrast injection was performed. Mild segmental systolic dysfunction (see wall motion). The estimated ejection fraction is 45 %. Moderate concentric left ventricular hypertrophy. Trivial mitral valve insufficiency. Trivial tricuspid valve insufficiency. Mild focal aortic valve calcification. Trivial aortic valve insufficiency. Trivial pulmonic valve insufficiency. Trivial pericardial effusion. There are no echocardiographic indications of cardiac tamponade. Unable to estimate RV systolic pressure/pulmonary artery pressure due to technically difficult study. Diastolic function is indeterminate. Echocardiogram for 05/20/2019: Interpretation Summary The study was technically difficult. Mild segmental systolic dysfunction (see wall motion). The estimated ejection fraction is 50 %. Mild concentric left ventricular hypertrophy. Trivial mitral valve insufficiency. Trivial tricuspid valve insufficiency. Trivial aortic valve insufficiency. Mildly dilated aortic root. Right ventricular systolic pressure estimated to be 21 mmHg. Diastolic function is indeterminate. Echocardiogram from 02/24/2020: Interpretation Summary The study was technically difficult. Contrast injection was performed. Mild segmental systolic dysfunction (see wall motion). The estimated ejection fraction is 50 %. Mild concentric left ventricular hypertrophy. The left atrium is mildly enlarged. Trivial mitral valve insufficiency. Trivial tricuspid valve insufficiency. Mild focal aortic valve thickening. Trivial aortic valve insufficiency. Mildly dilated aortic root. Right ventricular systolic pressure estimated to be 23 mmHg. Diastolic function is indeterminate. Stress Test Report Date: 02-24-2020 Procedure: Pharmacologic stress nuclear imaging study Indications: CAD; status post LA; status post PCI; preoperative cardiovascular evaluation Consent: Per the patient Procedure: The patient underwent pharmacologic (Regadenoson) evaluation with a peak heart rate of 93 beats per minute (61 %predicted maximal heart rate) and a peak blood pressure of 142/80 mmHg. The baseline ECG demonstrated normal sinus rhythm; anterior LA of indeterminate age cannot be excluded. The peak pharmacologic ECG demonstrated no obvious ECG changes. There were no cardiac dysrhythmias pretest, during pharmacologic infusion, or recovery. There was no complaint of chest discomfort during pharmacologic infusion or recovery. The examination was discontinued secondary to completion of protocol. Impression: 1. Pharmacologic (Regadenoson) evaluation 2. Peak pharmacologic ECG with no obvious ECG changes. 3. There were no cardiac dysrhythmias pretest, during pharmacologic infusion, or recovery. 4. Nuclear images pending Myocardial perfusion imaging study: Technique: The patient was injected with 14.6 millicuries of technetium 99m Cardiolite and subsequently rest SPECT Cardiolite nuclear imaging was obtained in the horizontal long, vertical long, and short axis views. The patient underwent pharmacologic (Regadenoson) evaluation with a peak heart rate of 93 beats per minute (61 % percent predicted maximal heart rate) and a peak blood pressure of 142/80 mmHg. The patient was injected with 44.8 millicuries of technetium 99m Cardiolite and subsequently stress SPECT Cardiolite nuclear imaging was obtained in the horizontal long, vertical long, and short axis views. A gated Cardiolite study at peak stress was obtained. Interpretation: Rest and stress SPECT Cardiolite nuclear imaging status post realignment, normalization, and attenuation correction demonstrate at rest area of diminished tracer uptake in portions of the septal apical segments/lateral apical segments and status post stress areas of diminished tracer uptake in portions of the distal anterior, distal anteroseptal, anterior apical, as well as the septal apical and lateral apical segments. There is diminished end systolic thickening and brightening in the aforementioned areas. The gated Cardiolite study demonstrates diminished myocardial thickening and inward wall motion. The reported LVEF is 49 %. Impression: 1. Rest and stress SPECT current nuclear imaging demonstrate myocardial perfusion changes appearing compatible with an area of previous myocardial injury/infarction involving portions of the septal apical/lateral apical segments and post-rest myocardial perfusion changes appearing compatible with areas of ekta-infarct related myocardial ischemia involving portions of the distal anterior, distal anteroseptal, and anterior apical segments. 2. The gated Cardiolite study reports an LVEF of 49 %. Procedure Criteria Procedure Type: Elective COVID Risk Discussion: The surgeon/proceduralist and patient have discussed in detail the risk of exposure to and/or potential harm posed by the COVID-19 virus with having a surgery/procedure at this time versus the risk of delaying the surgery/procedure. It is not possible to know either the risk of delaying the surgery or procedure or chance of getting an infection with perfect accuracy, but a joint decision was made between the patient and the surgeon/proceduralist to proceed at this time with the scheduled surgery/procedure as indicated on the consent form. Date _ Tahir BENTLEY Cosigner Signature: Date (if applicable) CC: ~ Draft I have re-examined the patient. There are no clinical changes since date of exam.
--- NOTE | 2020-03-09 10:53 | CL.D_ITS ---
Patient Name: SHERI VUONG Study Date: 03/09/2020 Performing: Michele Crouch MD Ht: 72.83 inches 185 cm : 1950 Wt: 284.4 lbs 129 kg Age: 69 Gender: male BSA: 2.49 PROCEDURE(S) PERFORMED VI10-EJE/COR/LV CLINICAL PROFILE AND INDICATIONS Indications: Suspected CAD Heart Failure: None Stress/Imaging Date: 02/24/2020Stress Test with SPECT MPI: Positive Angina Classification Anginal Classification w/in 2 Weeks: Anginal Equivalent Dyspnea CAD Presentations: Other: dyspnea on exertion CONCLUSIONS Elevated Left Ventricular End Diastolic Pressure Segmented LV systolic dysfunction- Mild LVEF: by LV gram 45 % [place] Multivessel CAD RECOMMENDATIONS Risk factor modification Medical therapy DESCRIPTION OF PROCEDURE The patient arrived to the procedure lab. The risks and benefits of the procedure as well as a full d escription of our services here and current unavailability of surgical backup were fully explained to the patient and/or their significant other prior to the catheterization. The Timeout was completed, verifying the correct patient and procedure. The patient's procedural site was prepped and draped in the usual fashion. Local anesthetic was given subcutaneously to right radial region with Lidocaine 2% . Using a modified Seldinger technique, arterial access was obtained via the right radial artery, a 6 Fr sheath was inserted. Left Coronary Artery selective angiography was performed in multiple views u sing a 5 Fr. 4.0 [place] catheter. Left Coronary Artery selective angiography was performed in multiple views using a 5 Fr. JL3.5 catheter. Right Coronary Artery selective angiography was then performed i n multiple views using a 5 Fr. JR 4 catheter. Left Ventriculography was performed in MIGUEL projection using a 5 Fr. Pigtail catheter. LV to AO pullback pressures were then recorded.The arteria l sheath was pulled and a TR Band was applied for hemostasis - 10cc air CORONARY ANGIOGRAPHY DOMINANCE: Right Dominant LEFT HEART ASSESSMENT Left Ventricular Ejection Fraction: by LV Gram 45 % Anterior Hypokinesis. Apical Hypokinesis Elevated Left Ventricular End Diastolic Pressure LVEDP: 29 mmHg LEFT MAIN: Angiographically normal LEFT ANTERIOR DESCENDING ARTERY: PROX LAD: eccentric: 10 - 25 % Stenosis MID LAD: Previously placed stent is patent with mild luminal irregularities DIAGONAL 1: Proximal - Mild luminal irregularities DIAGONAL 2: Proximal - Mild luminal irregularities DIAGONAL 3: Ostial - is occluded and fills late and partially from left to left collateral flow CIRCUMFLEX ARTERY: OM 1: Proximal - Mild luminal irregularities, Proximal - eccentric: 25 % Stenosis RIGHT CORONARY ARTERY: Mild luminal irregularities AORTIC ROOT: Angiographically normal COMPLICATIONS No Complications PROCEDURE MEDICATIONS Fentanyl 50 mcg IV Versed 1 mg IV Oxygen: 2 L/min via nasal cannula Heparin diluted in 23cc Heparinized saline. Patient given 10cc IA of this solution. 03/09/2020 09:42: 59 Verapamil 2.5mg, Ntg 100mcgs, 2000 units of Heparin diluted in 23cc Heparinized saline. Patient give n 10cc IA of this solution. 03/09/2020 09:42:59 SUMMARY OF HEMODYNAMIC DATA Time AIR REST ECG 08:18:59 AO 117/77 (96) SA 09:46:22 LV 139/-3, 25 10:12:05 LV 140/-3, 29 10:12:12 LV 138/-2, 22 10:13:00 LV 143/-2, 26 10:13:07 LVp 144/-1, 20 10:13:15 AOp 140/72 (100) 10:13:20 Signed By Michele Crouch MD On 03/09/2020 10:53:12 Michele Crouch MD
== END 2020-03-09 12:05 | disposition home or self-care (01) ==
LOC: CLSP 08:01
PROVIDERS: PCP Family Medicine; Referring Provider Internal Medicine Cardiovascular Disease; Visit Provider Internal Medicine Cardiovascular Disease
DX: I25.10 Atherosclerotic heart disease of native coronary artery without angina pectoris (principal); I25.5 Ischemic cardiomyopathy; I25.2 Old myocardial infarction; I10 Essential (primary) hypertension; E78.00 Pure hypercholesterolemia, unspecified; K21.9 Gastro-esophageal reflux disease without esophagitis; R94.39 Abnormal result of other cardiovascular function study; Z95.5 Presence of coronary angioplasty implant and graft; Z79.01 Long term (current) use of anticoagulants; Z79.02 Long term (current) use of antithrombotics/antiplatelets; Z79.82 Long term (current) use of aspirin; Z79.899 Other long term (current) drug therapy; Z12.5 Encounter for screening for malignant neoplasm of prostate
CPT/HCPCS: 36415; 71046; 80048; 84153; 85027; 85610; 85730; 93458; 99152; 99153; J7040; Q9967; C1769; C1894; G0103

== ENCOUNTER 2022-10-30 16:24 | Emergency (ER) | payer MEDICARE, SELFPAY ==
[2019-03-25 14:01] VITALS: BMI 40.6
[2022-10-30] VITALS (7 sets, daily range): BP systolic 117–137; BP diastolic 75–88; PULSE 74–95; RESP 14–27; TEMP 36.5; O2SAT 94–95; BMI 32.4
--- NOTE | 2022-10-30 17:09 | EKG12_ITS ---
Test Reason : Blood Pressure : / mmHG Vent. Rate : 090 BPM Atrial Rate : 090 BPM P-R Int : 178 ms QRS Dur : 078 ms QT Int : 370 ms P-R-T Axes : 026 -25 061 degrees QTc Int : 452 ms Normal sinus rhythm Inferior infarct , age undetermined Anteroseptal infarct , age undetermined Abnormal ECG Confirmed by JAVIER BARRAZA, KHALIF ([id number]), business editor IVA VENCES ([id number]) on 11/01/2022 10:04:13 AM Referred By: CHANDU Confirmed By:KHALIF HERRERA MD
--- NOTE | 2022-10-30 17:09 | ED.VIS.DYS ---
HPI History of Present Illness Chief Complaint: Shortness of Breath Informant: patient and family Narrative Narrative: Presents here sudden dyspnea since 12:30 PM. Symptoms worse with exertion. No chest pains or tightness with exertion. No cough. No vomiting or diarrhea. History of coronary stent little over 2 years of the LAD he is on aspirin and Brilinta which is continued by his implementation technician Dr. Crouch. He had a DVT in that leg 15 years ago he was on blood thinners at that time. No recent travel surgery or immobilizations. No history of PE. Currently symptoms decided however states with exertion he would worsen. Denies COPD asthma or heart failure history. Reports with his heart attack he had pain at that time with dyspnea. No pain currently. Family concerned due to his history. PE Risk Factors: Positive for Prior DVT or PE Prior similar symptoms: No PFSH PFSH Medical History Abnormal stress test Atherosclerotic heart disease of [place] coronary artery without angina pectoris BPH (benign prostatic hyperplasia) CAD (coronary artery disease) DVT (deep venous thrombosis) Essential hypertension GERD (gastroesophageal reflux disease) History of left heart catheterization (LHC) (~03/09/20) History of TIAs Ischemic cardiomyopathy NSTEMI (non-ST elevated myocardial infarction) Pure hypercholesterolemia Secondary pulmonary arterial hypertension Home Medications trospium 60 mg capsule,extended release 24 hr 60 mg PO DAILY bladder 03/26/19 [History Last Taken 05/19/19] aspirin 81 mg tablet,delayed release 81 mg PO DAILY@0800 heart [facility] 05/19/19 [History Last Taken 03/09/20] nitroglycerin 0.4 mg sublingual tablet 0.4 mg sublingual Q5M PRN Cardiac/Chest Pain #25 tabs 08/10/21 [Rx Last Taken Unknown] pantoprazole 40 mg tablet,delayed release 40 mg PO DAILY reflux #90 tabs 08/10/21 [Rx Last Taken Unknown] finasteride 5 mg tablet 5 mg PO DAILY 05/03/22 [History Last Taken Unknown] solifenacin 5 mg tablet (Vesicare) 5 mg PO DAILY 05/03/22 [History Last Taken Unknown] tamsulosin 0.4 mg capsule 0.8 mg PO DAILY 05/03/22 [History Last Taken Unknown] amlodipine 10 mg-valsartan 320 mg tablet 1 tab PO DAILY blood pressure #90 tabs 05/25/22 [Rx Last Taken Unknown] clonidine HCl 0.1 mg tablet 0.1 mg PO DAILY blood pressure #90 tabs 05/25/22 [Rx Last Taken Unknown] hydrochlorothiazide 25 mg tablet 25 mg PO QDAY diuretic #90 tabs 05/25/22 [Rx Last Taken Unknown] potassium chloride 10 mEq tablet,extended release(part/cryst) (Klor-Con M) See Rx Instructions .Route .COMPLEX #180 tabs 06/01/22 [Rx Last Taken Unknown] isosorbide mononitrate 30 mg tablet,extended release 24 hr 30 mg PO DAILY #90 tabs 08/14/22 [Rx Last Taken Unknown] metoprolol succinate 100 mg tablet,extended release 24 hr 100 mg PO DAILY blood pressure #90 tabs 08/14/22 [Rx Last Taken Unknown] apixaban 5 mg (74 tabs) tablets in a dose pack ([employer] DVT-PE Treat 30D Start) 5 mg PO BID #74 tabs 10/30/22 [Rx Last Taken Unknown] pravastatin 40 mg tablet 40 mg PO DAILY cholesterol 10/30/22 [History Last Taken Unknown] ticagrelor 90 mg tablet 90 mg PO DAILY antiplatelet 10/30/22 [History Last Taken Unknown] Allergy/AdvReac Type Severity Reaction Status Date / Time No Known Allergies Allergy Verified 10/30/22 16:27 Surgical History History of coronary artery stent placement History of left knee replacement (~03/2020) Presence of stent in coronary artery (03/25/19) Social History Smoking Status: Never smoker alcohol intake: never substance use type: does not use caffeine: Yes ROS ROS ED Constitutional Constitutional ED: Denies chills, fever(s) or sweats Eyes Eyes: Denies change in vision ENT ENT ED: Denies dysphagia or sore throat Cardiovascular Cardiovascular: Denies chest pain, leg edema, palpitations or racing heartbeat Respiratory/Chest Respiratory/Chest: Reports dyspnea and dyspnea on exertion; Denies cough Gastrointestinal Gastrointestinal: Denies abdominal pain, diarrhea, nausea or vomiting Genitourinary Genitourinary ED: Denies dysuria, hematuria or urinary frequency Musculoskeletal Musculoskeletal: Denies back pain, extremity pain or neck pain Integumentary Denies rash or wounds Neurologic Neurologic: Denies headache(s), paresthesias or weakness EXAM Physical Exam Const Vital Signs: 10/30/22 16:24 10/30/22 16:50 10/30/22 18:24 Temperature 97.7 F L Temperature Source Temporal Pulse Rate 95 75 Respiratory Rate 14 26 H Respiratory Effort Normal Non-Labored Respiratory Depth Normal Respiratory Pattern Tachypnea Blood Pressure 128/82 H 117/83 H Blood Pressure Mean 97 94 Pulse Ox 94 94 Oxygen Delivery Method Room Air Room Air Room Air 10/30/22 19:56 10/30/22 21:43 10/30/22 22:39 Temperature Temperature Source Pulse Rate 74 78 78 Respiratory Rate 23 H 27 H 20 H Respiratory Effort Respiratory Depth Respiratory Pattern Blood Pressure 117/85 H 137/88 H 135/75 H Blood Pressure Mean 95 104 Pulse Ox 94 94 95 Oxygen Delivery Method Room Air Room Air Positive well nourished and well developed General Appearance ED: well developed and NAD HEENT Reports moist mucous membranes normocephalic and atraumatic Eyes PERRL, EOMs intact bilaterally and conjunctivae normal General Eye ED: Yes normal appearance of both eyes Neck no lymphadenopathy and supple General: Negative for tenderness Chest Wall Chest: Negative for tenderness Resp normal respiratory effort and normal air movement Effort and Inspection: symmetric chest movement; Negative for respiratory distress Cardio regular rate, regular rhythm and no murmurs Peripheral Pulses: pulses 2+ throughout GI normal to inspection, nondistended, normoactive bowel sounds and non-tender Palpation: Negative for guarding or rebound tenderness present Back/Spine no CVA tenderness and no thoracic nor lumbar tenderness Extremity normal to inspection General Extremety ED: Negative for edema or tenderness General Extremity: Negative for edema Neuro oriented x3 and no sensory deficits noted Sensorium / Orientation: awake and alert Skin no rashes or lesions noted and no wounds MDM MDM MDM Narrative Medical decision making narrative: Interventions / MDM: Differential diagnosis: ACS, pulmonary embolism, Diagnosis considered but do not suspect: Pneumothorax however normal breath sounds bilaterally My EKG interpretation: Sinus rate of 98, no ST changes. No T wave changes. There is Q waves in the septal leads similar to EKG back in 2019. Imaging independently reviewed and interpreted by myself: CTA chest: Subsegmental nonoccluded pulmonary embolism all sections of the lung per radiology, no heart strain External documents reviewed: Echocardiogram from January 2020 EF 50% hypokinesis inferior septal carvalho. Test considered but not ordered:N/A ED course: EKG sinus rhythm chronic Q waves changes on the septal leads. Vital stable no chest pains. No active dyspnea or wheezing. Cardiac work-up negative troponin 8 2. Low risk [place] for PE with his DVT history. D-dimer obtained which was elevated. Subsequent CTA of the chest, nonobstructive occluded pulmonary embolism distally. He was covered with Lovenox, he was ambulated pulse ox 93% no respiratory distress. He has normal creatinine. I did reach out to covering physician with his PCP, discussed patient's history and findings. He will follow-up in the office. He is given prescription for Eliquis meds to bed for a month supply. He will likely need lifelong anticoagulant due to his DVT history. Return precaution discussed. All questions were answered. Re-evaluation: stable Disposition discussed with patient/family/significant other: Patient and significant other Case discussed with consulting clinician: Primary care team Lab Data Attestation: I reviewed the patient's lab results. Labs: Laboratory Results - last 24 hr 10/30/22 10/30/22 10/30/22 17:54 17:54 17:54 WBC 7.1 RBC 6.23 H Hgb 18.0 H* Hct 54.5 H MCV 87.5 MCH 28.9 MCHC 33.0 RDW Std Deviation 44.6 H RDW Coeff of Shant[place] 13.9 Plt Count 185 MPV 9.4 Immature Gran % (Auto) 0.700 Neut % (Auto) 67.3 Lymph % (Auto) 18.9 L [place] % (Auto) 9.3 Eos % (Auto) 2.8 Baso % (Auto) 1.0 Absolute Neuts (auto) 4.8 Absolute Lymphs (auto) 1.34 Nucleated RBC % 0 Diff Path Review December foll PT 14.5 INR 1.2 APTT 30.3 D-Dimer Quant (PE/DVT) 2.87 H* Sodium 139 Potassium 3.9 Chloride 104 Carbon Dioxide 30.0 Anion Gap 5 BUN 23 H Creatinine 1.26 Estim Creat Clear Calc 59.89 Est GFR (MDRD) Af Amer 72 Est GFR (MDRD) Non-Af 60 BUN/Creatinine Ratio 18.3 Glucose 105 Calcium 9.0 Troponin I High Sens 21 10/30/22 20:24 WBC RBC Hgb Hct MCV MCH MCHC RDW Std Deviation RDW Coeff of Shantelle Plt Count MPV Immature Gran % (Auto) Neut % (Auto) Lymph % (Auto) [place] % (Auto) Eos % (Auto) Baso % (Auto) Absolute Neuts (auto) Absolute Lymphs (auto) Nucleated RBC % Diff Path Review PT INR APTT D-Dimer Quant (PE/DVT) Sodium Potassium Chloride Carbon Dioxide Anion Gap BUN Creatinine Estim Creat Clear Calc Est GFR (MDRD) Af Amer Est GFR (MDRD) Non-Af BUN/Creatinine Ratio Glucose Calcium Troponin I High Sens 19 Radiography Diagnostic Testing: Clinical Impression(s) from Imaging Studies Chest CTA 10/30/22 18:43 IMPRESSION: Small to moderate volume nonocclusive acute pulmonary emboli in all of the subsegmental pulmonary arteries. No evidence of right heart strain. Right infrahilar atelectasis versus consolidation. Electronically Signed: Horace Fxo MD at 19:57 EST , ADDENDUM: 10/30/22 2219 IMPRESSION: Small to moderate volume nonocclusive acute pulmonary emboli in all of the subsegmental pulmonary arteries. No evidence of right heart strain. Right infrahilar atelectasis versus consolidation. N.B. : Chino Lux MD, confirmed on 10/30/2022 22:12:20 (ET) that the healthcare facility has received the radiology report. Electronically Signed: Horace Fox MD at 19:57 EST , Discharge Plan Triage Chief Complaint: Shortness of Breath ED Provider: Chino Lux Dx/Rx/DC Orders Clinical Impression: Pulmonary embolism, bilateral, Dyspnea, History of deep vein thrombosis Instructions: Pulmonary Embolism Prescriptions: New Eliquis DVT-PE Treat 30D Start 5 mg (74 tabs) tablets,dose pack 5 mg PO BID Qty: 74 0RF No Action tamsulosin 0.4 mg capsule 0.8 mg PO DAILY finasteride 5 mg tablet 5 mg PO DAILY solifenacin [Vesicare] 5 mg tablet 5 mg PO DAILY trospium 60 MG capsule,extended release 24hr 60 mg PO DAILY aspirin 81 MG tablet 81 mg PO DAILY@0800 pravastatin 40 mg tablet 40 mg PO DAILY ticagrelor 90 mg tablet 90 mg PO DAILY nitroglycerin 0.4 mg tablet, sublingual 0.4 mg SUBLINGUAL Q5M PRN (Reason: Cardiac/Chest Pain) Qty: 25 3RF pantoprazole 40 mg tablet,delayed release (DR/EC) 40 mg PO DAILY Qty: 90 3RF amlodipine-valsartan 10-320 mg tablet 1 tab PO DAILY Qty: 90 3RF clonidine HCl 0.1 mg tablet 0.1 mg PO DAILY Qty: 90 3RF hydrochlorothiazide 25 mg tablet 25 mg PO QDAY Qty: 90 3RF potassium chloride [Klor-Con M10] 10 mEq tablet,ER particles/crystals See Rx Instructions .ROUTE .COMPLEX Qty: 180 3RF Dose Instruction: TAKE 2 TABLETS BY MOUTH EVERY DAY Rx Instructions: TAKE 2 TABLETS BY MOUTH EVERY DAY isosorbide mononitrate 30 mg tablet extended release 24 hr 30 mg PO DAILY Qty: 90 3RF metoprolol succinate 100 mg tablet extended release 24 hr 100 mg PO DAILY Qty: 90 3RF Primary Care Provider: Milagro Jimenez Referrals: Milagro Jimenez DO [Primary Care Provider] - 3-5 Days Activity Restrictions/Additional Instructions: Small to moderate nonocclusive PEs in subsegmental arteries no heart strain. Take Eliquis as prescribed you will likely need lifelong blood thinners due to your DVT in the past. Monitor for any rectal bleeding. Follow-up with your doctor. Disposition Disposition: Home, Self Care Discharge Date/Time: 10/30/22 23:15
[2022-10-30 18:12] LABS: Absolute Lymphocyte Count 1.34 X10^3/uL (0.83-4.51); Absolute Neutrophil Count 4.8 X10^3/uL (2.0-7.7); Basophil# 0.07 X10^3/uL; Eosinophils% 2.8 % (0-5); Hematocrit 54.5 % (40-54); Lymphocyte # 1.34 X10^3/ul (0.83-4.51); Lymphocyte % 18.9 % (19-41); Mean Corpuscular Hgb 28.9 pg (27.0-32.0); Mean Corpuscular Volume 87.5 fL (80-94); Mean Platelet Vol. 9.4 fl (6.2-12.0); Monocyte# 0.66 X10^3/uL; Monocyte% 9.3 % (0-10); NRBC Flagged by Analyzer 0 % (0-5); Neutrophil # 4.76 X10^3/uL (2.7-7.7); Neutrophil % 67.3 % (47-70); Platelet Count 185 K/mm3 (150-450); RBC Distribution Width CV 13.9 % (11.6-14.6); RBC Distribution Width SD 44.6 fl (35.1-43.9); Red Blood Count 6.23 M/mm3 (4.6-6.2); White Blood Count 7.1 K/mm3 (4.4-11.0)
[2022-10-30 18:20] LABS: Anion Gap 5 (5-15); BUN 23 mg/dL (7-18); BUN/Creat Ratio 18.3 RATIO (10-20); Chloride 104 mmol/L (98-107); Creatinine, Serum 1.26 mg/dL (0.70-1.30); EST Glomerular Filtration Rate 60 mL/min (>60); Est Glom Filt Rate - Afr Amer 72 mL/min (>60); Estimated Creatinine Clearance 59.89 ml/min; Glucose 105 mg/dL (74-106); Potassium 3.9 mmol/L (3.5-5.1); Sodium Level 139 mmol/L (136-145); Troponin-I HS (w/2H Reflex) 21 pg/mL (3.0-78.0)
[2022-10-30 18:21] LABS: International Normalized Ratio 1.2; Prothrombin Time (Protime)PT. 14.5 SECONDS (11.7-14.9)
[2022-10-30 18:22] LABS: Partial Thromboplast Time 30.3 Seconds (24.1-36.2)
[2022-10-30 18:41] LABS: D-Dimer Quantitative (DVT/PE) 2.87 FEU/ug/m (0.27-0.49)
--- NOTE | 2022-10-30 18:43 | CT_ITS ---
ACR Level 3 findings have been noted. An addendum which confirms receipt of the report will follow. INDICATION: dyspnea EXAMINATION: CTA Chest WO/W Contrast Injection TECHNIQUE: Helically acquired images were obtained of the chest following administration of IV contrast. A radiation dose optimization technique was used for this scan. 3D postprocessing images including MIPS were reviewed. IV Contrast dosage and agent: IV 100mL Isovue-370 COMPARISON: None. FINDINGS: Lungs: Scattered groundglass opacities. Right infrahilar atelectasis versus consolidation. Mediastinum: The heart is mildly enlarged. No mediastinal, hilar or axillary adenopathy. Mild aortic arch and coronary artery calcifications. There is small to moderate volume nonocclusive clot seen within all of the subsegmental pulmonary arteries. Elevation of the right hemidiaphragm. Pleura: Unremarkable Bones/Soft tissues: Mild scattered degenerative changes of the visualized spine. Upper abdomen: Hiatal hernia. CT/CTA Chest W/WO Contrast IMPRESSION: Small to moderate volume nonocclusive acute pulmonary emboli in all of the subsegmental pulmonary arteries. No evidence of right heart strain. Right infrahilar atelectasis versus consolidation. Electronically Signed: Horace Fox MD at 19:57 EST ,
[2022-10-30 19:58] LABS: Reflex Troponin-HS? (from REC) Y
[2022-10-30 20:47] LABS: Troponin-I HS 19 pg/mL (3.0-78.0)
[2022-10-30] MEDS: Enoxaparin 120 MG/0.8 ML Syringe SC (21:41)
[2022-10-31 13:32] LABS: Pathologist Review Reviewed
== END 2022-10-30 23:15 | disposition home or self-care (01) ==
PROVIDERS: Emergency Provider Emergency Medicine; PCP Family Medicine; Visit Provider Emergency Medicine
DX: I26.99 Other pulmonary embolism without acute cor pulmonale (principal); R06.00 Dyspnea, unspecified; I10 Essential (primary) hypertension; I25.5 Ischemic cardiomyopathy; I25.10 Atherosclerotic heart disease of native coronary artery without angina pectoris; E78.00 Pure hypercholesterolemia, unspecified; I25.2 Old myocardial infarction; N40.0 Benign prostatic hyperplasia without lower urinary tract symptoms; K21.9 Gastro-esophageal reflux disease without esophagitis; Z86.718 Personal history of other venous thrombosis and embolism; Z95.5 Presence of coronary angioplasty implant and graft; Z79.82 Long term (current) use of aspirin; Z79.01 Long term (current) use of anticoagulants; Z79.899 Other long term (current) drug therapy
CPT/HCPCS: 71275; 80048; 84484; 85025; 85379; 85610; 85730; 93005; 96372; 99284; Q9967; A4216

== ENCOUNTER 2023-12-05 09:52 | Day surgery (SDC) | payer MEDICARE, SELFPAY ==
[2019-03-25 14:01] VITALS: BMI 40.6
--- NOTE | 2023-11-29 09:58 | EKG12_ITS ---
Test Reason : PRE-OP Blood Pressure : / mmHG Vent. Rate : 084 BPM Atrial Rate : 182 BPM P-R Int : 000 ms QRS Dur : 074 ms QT Int : 370 ms P-R-T Axes : 000 -34 055 degrees QTc Int : 437 ms Atrial fibrillation Left axis deviation Inferior infarct , age undetermined Anteroseptal infarct . age undetermined Abnormal ECG Confirmed by GABE BARRAZA, STEPHIE ([id number]), editor & co founder IVA VENCES ([id number]) on 11/30/2023 9:15:58 AM Referred By: Tino Prescott Confirmed By:STEPHIE BERNAL MD
[2023-11-29 11:26] LABS: Mean Corp Hgb Conc 32.6 g/dL (32-36); Mean Corpuscular Hgb 27.6 pg (27.0-32.0); Mean Corpuscular Volume 84.7 fL (80-94); Mean Platelet Vol. 10.2 fl (6.2-12.0); Platelet Count 197 K/mm3 (150-450); RBC Distribution Width CV 14.6 % (11.6-14.6); RBC Distribution Width SD 44.2 fl (35.1-43.9); Red Blood Count 6.59 M/mm3 (4.6-6.2); White Blood Count 6.4 K/mm3 (4.4-11.0)
[2023-11-29 11:29] LABS: Hematocrit 55.8 % (40-54)
[2023-11-29 11:56] LABS: Anion Gap 5 (5-15); BUN 17 mg/dL (7-18); BUN/Creat Ratio 13.7 RATIO (10-20); Calcium,Total 9.3 mg/dL (8.5-10.1); Chloride 111 mmol/L (98-107); Creatinine, Serum 1.24 mg/dL (0.70-1.30); EST Glomerular Filtration Rate 61 mL/min (>60); Est Glom Filt Rate - Afr Amer 73 mL/min (>60); Glucose 104 mg/dL (74-106); Potassium 3.6 mmol/L (3.5-5.1); Sodium Level 142 mmol/L (136-145)
[2023-11-29 12:34] LABS: Hemoglobin 18.2 g/dL (13.0-16.5)
[2023-11-30 13:09] LABS: Pathologist Review Reviewed
[2023-12-05] VITALS (11 sets, daily range): BP systolic 107–133; BP diastolic 59–90; PULSE 58–83; RESP 14–18; TEMP 36.2–36.8; O2SAT 91–94; BMI 36.6
[2023-12-05] MEDS: Lactated Ringers 1,000 ML 15 ML IV (10:34)
--- NOTE | 2023-12-05 11:26 | PCM.HP.STD ---
[facility] - General General Date of Service: 12/05/23 Chief Complaint: BPH with obstruction HPI Narrative SHERI VUONG, is a 73 M who presents for a transurethral resection of the prostate for BPH with obstruction [facility] Medical History (Updated 11/28/23 @ 11:06 by Imani Robertson) Abnormal stress test Arthritis Atherosclerotic heart disease of [place] coronary artery without angina pectoris BPH (benign prostatic hyperplasia) CAD (coronary artery disease) Cardiology follow-up encounter Dementia DVT (deep venous thrombosis) Essential hypertension GERD (gastroesophageal reflux disease) High cholesterol History of echocardiogram History of heart attack History of left heart catheterization (LHC) (~03/09/20) History of stress test History of TIAs Ischemic cardiomyopathy Non-smoker NSTEMI (non-ST elevated myocardial infarction) Prostate disease Pulmonary emboli Pure hypercholesterolemia Redness of skin Secondary pulmonary arterial hypertension Shortness of breath on exertion TIA (transient ischemic attack) Uses wheelchair Wears glasses Home Medications pantoprazole 40 mg tablet,delayed release 40 mg PO DAILY reflux #90 tabs 08/10/21 [Rx Last Taken 12/05/23] finasteride 5 mg tablet 5 mg PO DAILY 05/03/22 [History Last Taken 12/04/23] tamsulosin 0.4 mg capsule 0.8 mg PO DAILY 05/03/22 [History Last Taken 12/04/23] apixaban 5 mg (74 tabs) tablets in a dose pack ([employer] DVT-PE Treat 30D Start) 5 mg PO BID #74 tabs 10/30/22 [Rx Last Taken 12/01/23] amlodipine 10 mg-valsartan 320 mg tablet 1 tab PO DAILY blood pressure #90 tabs 04/17/23 [Rx Last Taken 12/05/23] clonidine HCl 0.1 mg tablet 0.1 mg PO DAILY blood pressure #90 tabs 04/17/23 [Rx Last Taken 12/05/23] potassium chloride 10 mEq tablet,extended release(part/cryst) (Brad M) See Rx Instructions .Route .COMPLEX #180 tabs 04/18/23 [Rx Last Taken 12/04/23] isosorbide mononitrate 30 mg tablet,extended release 24 hr 30 mg PO DAILY #90 tabs 08/15/23 [Rx Last Taken 12/05/23] metoprolol succinate 100 mg tablet,extended release 24 hr 100 mg PO DAILY blood pressure #90 tabs 08/15/23 [Rx Last Taken 12/05/23] pravastatin 40 mg tablet 40 mg PO DAILY cholesterol #90 tabs 08/15/23 [Rx Last Taken 12/04/23] Allergy/AdvReac Type Severity Reaction Status Date / Time No Known Allergies Allergy Verified 12/05/23 10:25 Surgical History (Updated 11/28/23 @ 11:06 by Imani Robertson) History of cardiac catheterization History of colonoscopy History of coronary artery stent placement History of cystoscopy History of esophagogastroduodenoscopy (EGD) History of left knee replacement (~03/2020) Presence of stent in coronary artery (03/25/19) Social History Smoking Status: Never smoker alcohol intake: never substance use type: does not use caffeine: Yes Vital Signs Vital Signs Vital Signs: 12/05/23 10:28 12/05/23 10:28 Temperature 97.3 F L Temperature Source Temporal Pulse Rate 58 L Respiratory Rate 18 Respiratory Pattern Normal Blood Pressure 118/85 H Blood Pressure Mean 96 Blood Pressure Source Monitor Blood Pressure Position Semi-Fowlers Blood Pressure Location Left Arm Pulse Ox 92 Oxygen Delivery Method Room Air Weight Weight: 126 kg Body Mass Index (BMI) 36.6 Results Lab / Micro Data 11/29/23 10:31 11/29/23 10:31
[2023-12-05] MEDS: Cefazolin 2 GM in 0.9% Normal Saline (100mL Bag) 100 ML IV (11:52)
--- NOTE | 2023-12-05 12:04 | DCINST_ITS ---
Discharge Instructions Diet Discharge Diet: No restrictions Activity Discharge Activity: Return to Normal Activity and May Not Drive (while taking narcotic pain medications.) Dressing / Incision Call your doctor if you observe: Fever of 101 or Higher Follow Up Care Please Follow Up With: Tino Prescott MD When: Call [phone] for an appointment Test Results: Test results from this visit will be discussed in further detail at your follow- up appointment, if applicable. Discharge Plan Admission Primary Reason for Your Visit: turp Attending Provider: Tino Prescott Primary Care Provider: Milagro Jimenez Discharge Orders/Prescriptions Prescriptions: New ciprofloxacin HCl [Cipro] 500 mg tablet 500 mg PO BID Qty: 10 0RF Continued pantoprazole 40 mg tablet,delayed release (DR/EC) 40 mg PO DAILY Qty: 90 3RF clonidine HCl 0.1 mg tablet 0.1 mg PO DAILY Qty: 90 3RF amlodipine-valsartan 10-320 mg tablet 1 tab PO DAILY Qty: 90 3RF potassium chloride [Klor-Con M10] 10 mEq tablet,ER particles/crystals See Rx Instructions .ROUTE .COMPLEX Qty: 180 3RF Dose Instruction: TAKE 2 TABLETS BY MOUTH EVERY DAY Rx Instructions: TAKE 2 TABLETS BY MOUTH EVERY DAY isosorbide mononitrate 30 mg tablet extended release 24 hr 30 mg PO DAILY Qty: 90 3RF metoprolol succinate 100 mg tablet extended release 24 hr 100 mg PO DAILY Qty: 90 3RF pravastatin 40 mg tablet 40 mg PO DAILY Qty: 90 3RF Held Eliquis DVT-PE Treat 30D Start 5 mg (74 tabs) tablets,dose pack 5 mg PO BID Qty: 74 0RF Hold Instructions: Resume on 12/19/23. Discontinued tamsulosin 0.4 mg capsule 0.8 mg PO DAILY finasteride 5 mg tablet 5 mg PO DAILY Other Ambulatory Orders: 12 Lead EKG (Routine) Timeframe: 20231129 Location: None Selected Ordered By: Dr. Jesse Simpson Referrals / Follow Up: Tino Prescott MD [Med Staff - Active Staff] - Milagro Jimenez DO [Primary Care Provider] - Disposition Disposition (needs filled in before D/C Order can be placed): Home, Self Care
--- NOTE | 2023-12-05 12:10 | PROS_PTH ---
PATIENT: SHERI VUONG LOC: [facility] [place] U#:[id number] AGE/SX: 73/M ROOM: RE12/05/[address]: Dr. Tino Prescott MD : 1950 BED: DIS: 12/06/2023 SPEC #: [id number] RECD: 12/05/23 15:32 STATUS: CHLOE RELatisha #: [id number] CHRISTINE: 12/05/23 12:[address]: Tino Prescott DEPT: SURGICAL PATHOLOGY RECD BY: Justyna De Los Santos ENTERED: 12/06/23 12:03 SP TYPE: TURP OTHR DR: Dr. Milagro Jimenez, DO Tissues: Prostate, NOS Procedures: Surgery Specimen Level IV HEADER OPERATION: Cysto, transurethral resection prostate with Olympus PRE-OP DIAGNOSIS: BPH with obstruction TISSUE SUBMITTED: Prostate tissue MICROSCOPIC DIAGNOSIS Prostate, transurethral resection: Benign nodular hyperplasia, glandular and stromal types. AM: 12/07/23 MICROSCOPIC DESCRIPTION Slides are reviewed. GROSS DESCRIPTION Received is one container labeled with the patient's name and designated prostate tissue. The specimen consists of multiple irregular fragments of pink-chase, rubbery, soft tissue that in aggregate weigh 2.1 gm and measure in aggregate 3.0 x 1.5 x 1.0 cm. The entire specimen is submitted in three cassettes. NENA/ 12/06/23 TC:5 CPT: 73661
--- NOTE | 2023-12-05 12:32 | PCM.OPRPT ---
Report of Operation Date of Procedure: 12/05/23 Pre-Operative Diagnosis: BPH with obstruction Post-Operative Diagnosis: The same Surgery/Procedure Performed:: Transurethral section of prostate Description of Surgical Findings:: In the preoperative setting I discussed with the patient how the surgery would be done with expect afterwards. We discussed how a prostate resection is done and we discussed the risk of the surgery including, bleeding, infection, retrograde ejaculation, changes with ejaculation or intercourse,. We discussed the possibility that the resection of the prostate may not alleviate his urinary symptoms. We discussed the small risk of developing scar tissue along the urethral channel and strictures. We also discussed the chance of the prostate could grow back and he may need further surgery or treatment in the future for prostate problems. Patient was taken back to the operating room, timeout procedure was performed, he was identified and marked and placed on the operating room table. He underwent general anesthesia. He was placed in dorsolithotomy position. Penis and testicles were prepped and draped in usual sterile fashion. Went into the bladder using the visual obturator with a resectoscope. Once inside the bladder identified the right and left ureteral orifice. I then identified the prostate and the anatomy of the prostate. I marked out the area of the sphincter and the verumontanum was identified. I then proceeded with the prostate resection first resected the median lobe. And then resected the right lobe of the prostate. Then to resect the left lobe of the prostate. I then resected the apical tissue of the prostate. This was a complete resection of all obstructive tissue to improve voiding and relieve obstruction. I then made sure that there was no injury to the sphincter or the verumontanum was still intact. At the end of the resection all the chips were Ellik out of the bladder. I then identified the left and right ureteral orifice and these were confirmed to be in good position and effluxing and not injured. The resectoscope was removed, a 22 Egyptian catheter was placed into the bladder on continuous irrigation. And the urine was fairly light pink color and draining normally. He was taken back to the PACU in good condition. Surgeon: Tino Prescott Type of Anesthesia: General Drains: 22 fr Admit VTE Documentation VTE Present on Admission: No VTE Mechan Device Prophylaxis: SCD's VTE Pharm Prophylaxis ordered?: No
[2023-12-05] MEDS: 0.9% Normal Saline (1000mL) 1,000 ML 75 ML IV (14:55)
[2023-12-05] MEDS: Ciprofloxacin 400 MG/200 ML BAG 200 MG IV (17:32)
[2023-12-05] MEDS: Docusate Sodium 100 MG Capsule 200 MG PO (21:03)
[2023-12-05] MEDS: Pravastatin 40 MG Tablet PO (21:04)
[2023-12-06 02:07] VITALS: BP 110/81; PULSE 76; RESP 18; TEMP 36.8; O2SAT 92
[2023-12-06] MEDS: Ciprofloxacin 400 MG/200 ML BAG 200 MG IV (05:26)
[2023-12-06] MEDS: 0.9% Normal Saline (1000mL) 1,000 ML 75 ML IV (05:26)
[2023-12-06 05:31] VITALS: BP 127/77; PULSE 62; RESP 18; TEMP 36.8; O2SAT 94
--- NOTE | 2023-12-06 07:39 | PCM.PN.GU ---
Subjective Subjective Status post TURP, DC Tello today he can go home after he urinates Objective Data Objective Data Vital Signs: Vital Signs Temp Pulse Resp BP Pulse Ox O2 Del Method O2 Flow Rate 98.2 F 62 18 127/77 H 94 Nasal Cannula 2 12/06/23 05:31 12/06/23 05:31 12/06/23 05:31 12/06/23 05:31 12/06/23 05:31 12/06/23 05:31 12/06/23 05:31 Oxygen Flow Rate (L/min) 2 Oxygen Delivery Method Nasal Cannula Weight: 126 kg Body Mass Index (BMI) 36.6 Intake & Output: Intake and Output for Last 24 Hours 12/04/23 12/05/23 12/06/23 23:59 23:59 23:59 Intake Total 1072.75 / 1072.75 1002.5 / 1002.5 Output Total 100 / 100 Balance 972.75 / 972.75 1002.5 / 1002.5 Lab / Micro Data 11/29/23 10:31 11/29/23 10:31
--- NOTE | 2023-12-06 09:10 | CASEMGMT ---
JAYCE CM into pt room, pt sitting up in chair eating breakfast. Pt denies any homegoing needs, states his will transport him home. Pt uses a cane at baseline and feels safe.
[2023-12-06 09:38] VITALS: BP 142/94; PULSE 76; RESP 18; TEMP 36.6; O2SAT 92
[2023-12-06 09:43] VITALS: PULSE 76
[2023-12-06] MEDS: Metoprolol(XL)Succ 100 MG Tablet PO (09:43)
[2023-12-06] MEDS: Pantoprazole Sodium 40 MG Tablet PO (09:43)
[2023-12-06] MEDS: Docusate Sodium 100 MG Capsule 200 MG PO (09:44)
[2023-12-06] MEDS: Isosorbide Mononitrate 30 MG Tablet PO (09:44)
[2023-12-06] MEDS: cloNIDine HCl 0.1 MG Tablet PO (09:44)
[2023-12-06] MEDS: Potassium Chloride Oral Tablet 10 MEQ 20 MEQ PO (09:44)
[2023-12-06] MEDS: Losartan Potassium 100 MG Tablet PO (09:44)
[2023-12-06] MEDS: amLODIPine 10 MG Tablet PO (09:45)
--- NOTE | 2023-12-06 14:53 | PHA.DC.MC.R ---
Pharmacy [facility] Pharmacy Service has performed discharge medication reconciliation and counseling for this patient. 1. CIPROFLOXACIN 500MG PO BID X 5 DAYS The patient's discharge medication list was reviewed for discrepancies and discrepancies were resolved. The patient was counseled on the following discharge medications and changes in medications for homegoing were reviewed. The Reason for Use, instructions for use, and potential side effects were reviewed for all new medications. The patient's questions regarding all of their medications were answered. The patient was able to verbally demonstrate an understanding of their discharge medications. Medications at Discharge Home Medications pantoprazole 40 mg tablet,delayed release 40 mg PO DAILY reflux #90 tabs 08/10/21 apixaban 5 mg (74 tabs) tablets in a dose pack ([employer] reviews DVT-PE Treat 30D Start) 5 mg PO BID #74 tabs 10/30/22 amlodipine 10 mg-valsartan 320 mg tablet 1 tab PO DAILY blood pressure #90 tabs 04/17/23 clonidine HCl 0.1 mg tablet 0.1 mg PO DAILY blood pressure #90 tabs 04/17/23 potassium chloride 10 mEq tablet,extended release(part/cryst) (Klor-Con M) See Rx Instructions .Route .COMPLEX #180 tabs 04/18/23 isosorbide mononitrate 30 mg tablet,extended release 24 hr 30 mg PO DAILY #90 tabs 08/15/23 metoprolol succinate 100 mg tablet,extended release 24 hr 100 mg PO DAILY blood pressure #90 tabs 08/15/23 pravastatin 40 mg tablet 40 mg PO DAILY cholesterol #90 tabs 08/15/23 ciprofloxacin HCl 500 mg tablet (Cipro) 500 mg PO BID #10 tabs 12/05/23
== END 2023-12-06 14:50 | disposition home or self-care (01) ==
LOC: SDC 09:54 → AC 09:54 → MS3 13:12
PROVIDERS: Anesthesiology; PCP Family Medicine; Referring Provider Urology; Visit Provider Urology
PROC: 0VT08ZZ Resection of Prostate, Via Natural or Artificial Opening Endoscopic (ICD-10-PCS; CPT 52601; principal; 2023-12-05 12:00)
DX: N40.1 Benign prostatic hyperplasia with lower urinary tract symptoms (principal); I42.8 Other cardiomyopathies; N13.8 Other obstructive and reflux uropathy; I25.10 Atherosclerotic heart disease of native coronary artery without angina pectoris; K21.9 Gastro-esophageal reflux disease without esophagitis; I25.5 Ischemic cardiomyopathy; E78.00 Pure hypercholesterolemia, unspecified; I10 Essential (primary) hypertension; Z79.899 Other long term (current) drug therapy; Z79.01 Long term (current) use of anticoagulants; Z86.73 Personal history of transient ischemic attack (TIA), and cerebral infarction without residual deficits; Z95.5 Presence of coronary angioplasty implant and graft; Z86.718 Personal history of other venous thrombosis and embolism
CPT/HCPCS: 52601; 00914; 36415; 80048; 85027; 88305; 93005; 94668; J7030; J7120; J0744; J2405

== ENCOUNTER → 2024-03-24 | Outpatient (CLI) | payer MEDICARE, SELFPAY ==
[2019-03-25 14:01] VITALS: BMI 40.6
[2024-03-24 10:30] LABS: Absolute Lymphocyte Count 1.29 X10^3/uL (0.83-4.51); Absolute Neutrophil Count 4.9 X10^3/uL (2.0-7.7); Basophil# 0.04 X10^3/uL; Basophil% 0.6 % (0-1); Eosinophil# 0.12 X10^3/uL; Eosinophils% 1.7 % (0-5); Hemoglobin 20.1 g/dL (13.0-16.5); Lymphocyte # 1.29 X10^3/ul (0.83-4.51); Lymphocyte % 18.8 % (19-41); Mean Corp Hgb Conc 33.2 g/dL (32-36); Mean Corpuscular Hgb 27.2 pg (27.0-32.0); Mean Platelet Vol. 9.6 fl (6.2-12.0); Monocyte# 0.51 X10^3/uL; Monocyte% 7.4 % (0-10); NRBC Flagged by Analyzer 0 % (0-5); Neutrophil # 4.86 X10^3/uL (2.7-7.7); Neutrophil % 70.8 % (47-70); Platelet Count 205 K/mm3 (150-450); RBC Distribution Width CV 17.2 % (11.6-14.6); RBC Distribution Width SD 46.6 fl (35.1-43.9); Red Blood Count 7.38 M/mm3 (4.6-6.2); White Blood Count 6.9 K/mm3 (4.4-11.0)
[2024-03-24 10:32] LABS: Hematocrit 60.5 % (40-54)
[2024-03-24 11:04] LABS: ALB/GLOB Ratio 0.8 RATIO (0.9-2.4); AST(SGOT) 31 U/L (15-37); Alanine Aminotransfer ALT/SGPT 23 U/L (16-61); Albumin, Serum 3.3 g/dL (3.2-5.0); Alkaline Phosphatase 137 U/L (45-117); Anion Gap 6 (5-15); BUN 24 mg/dL (7-18); BUN/Creat Ratio 16.6 RATIO (10-20); Calcium,Total 9.3 mg/dL (8.5-10.1); Chloride 105 mmol/L (98-107); Creatinine, Serum 1.45 mg/dL (0.70-1.30); EST Glomerular Filtration Rate 51 mL/min (>60); Est Glom Filt Rate - Afr Amer 61 mL/min (>60); Globulin 4.2 g/dL (2.2-4.2); Glucose 112 mg/dL (74-106); Potassium 3.4 mmol/L (3.5-5.1); Protein, Total 7.5 g/dL (6.4-8.2); Sodium Level 138 mmol/L (136-145)
[2024-03-25 11:17] LABS: Pathologist Review Reviewed
== END | disposition home or self-care (01) ==
LOC: LAB 09:44
PROVIDERS: PCP Family Medicine; Referring Provider Nurse Practitioner Family; Visit Provider Nurse Practitioner Family
DX: R06.09 Other forms of dyspnea (principal); I25.5 Ischemic cardiomyopathy
CPT/HCPCS: 36415; 80053; 83880; 85025

== ENCOUNTER 2024-07-29 20:30 | Outpatient (CLI) | payer MEDICARE, SELFPAY ==
[2019-03-25 14:01] VITALS: BMI 40.6
== END 2024-07-29 23:59 | disposition home or self-care (01) ==
LOC: SL 20:30
PROVIDERS: PCP Family Medicine; Referring Provider Nurse Practitioner Acute Care; Visit Provider Nurse Practitioner Acute Care
DX: G47.33 Obstructive sleep apnea (adult) (pediatric) (principal)
CPT/HCPCS: 95811

== ENCOUNTER → 2024-08-28 | Outpatient (CLI) | payer MEDICARE, SELFPAY ==
[2019-03-25 14:01] VITALS: BMI 40.6
== END | disposition home or self-care (01) ==
LOC: SL 14:08
PROVIDERS: PCP Family Medicine; Referring Provider Nurse Practitioner Acute Care; Visit Provider Nurse Practitioner Acute Care
DX: Z00.00 Encounter for general adult medical examination without abnormal findings (principal)

== ENCOUNTER → 2024-10-30 | Outpatient (CLI) | payer MEDICARE, SELFPAY ==
[2019-03-25 14:01] VITALS: BMI 40.6
[2024-10-30 16:51] LABS: Hemoglobin 19.1 g/dL (13.0-16.5); Mean Corp Hgb Conc 33.4 g/dL (32-36); Mean Corpuscular Hgb 28.8 pg (27.0-32.0); Mean Corpuscular Volume 86.1 fL (80-94); Mean Platelet Vol. 10.3 fl (6.2-12.0); Platelet Count 221 K/mm3 (150-450); RBC Distribution Width CV 15.2 % (11.6-14.6); RBC Distribution Width SD 46.1 fl (35.1-43.9); Red Blood Count 6.64 M/mm3 (4.6-6.2); White Blood Count 9.2 K/mm3 (4.4-11.0)
[2024-10-30 16:59] LABS: Hematocrit 57.2 % (40-54)
[2024-10-30 17:02] LABS: Scan Indicated on CBC? Y/N NO
[2024-10-31 19:54] LABS: Pathologist Review May foll
== END | disposition home or self-care (01) ==
LOC: LAB 15:19
PROVIDERS: PCP Family Medicine; Referring Provider Internal Medicine Cardiovascular Disease; Visit Provider Internal Medicine Cardiovascular Disease
DX: I25.10 Atherosclerotic heart disease of native coronary artery without angina pectoris (principal)
CPT/HCPCS: 36415; 85027